=== PATIENT | female | born 1965 | race Caucasian/White ===

== ENCOUNTER → 2016-04-07 | Outpatient (CLI) | payer OTHER ==
[2016-04-07 15:56] LABS: BASOPHILS # (AUTO) 0.03 10*3/UL; BASOPHILS % (AUTO) 0.7 % (0-1); EOSINOPHILS % (AUTO) 1.7 % (0-8); HEMATOCRIT 37.6 % (37.0-47.0); HEMOGLOBIN 11.6 g/dL (12.0-16.0); IMM GRAN % (AUTO) 0.2 % (0-5); IMM GRAN# (AUTO) 0.01 10*3/UL; LYMPHOCYTES # (AUTO) 0.66 10*3/uL; LYMPHOCYTES % (AUTO) 15.8 % (10-50); MEAN CORPUSCULAR HEMOGLOBIN 26.9 PG (27-31); MEAN CORPUSCULAR HGB CONC 30.9 g/dL (33-37); MEAN PLATELET VOLUME 10.8 FL (7.4-12.2); MONOCYTES # (AUTO) 0.45 10*3/UL (0.3-0.8); MONOCYTES % (AUTO) 10.8 % (5-15); NEUTROPHILS # (AUTO) 2.95 10*3/UL; NEUTROPHILS % (AUTO) 70.8 % (50-80); RDW COEFFICIENT OF VARIATION 22.7 % (11.5-14.5); RED BLOOD COUNT 4.31 10^6/uL (4.20-5.40); WHITE BLOOD COUNT 4.17 10^3/uL (4.8-10.8)
[2016-04-07 15:57] LABS: BILIRUBIN,URINE NEGATIVE (NEG); CLARITY,URINE Slightly Clo (CLEAR); GLUCOSE, URINE (UA) NEGATIVE (NEG); LEUKOCYTE ESTERASE ,URINE MODERATE (NEG); NITRATE,URINE NEGATIVE (NEG); OCCULT BLOOD,URINE NEGATIVE (NEG); PLATELET MORPHOLOGY COMMENT NORMAL MORPHOLOGY (NORM); PROTEIN,URINE 30 mg/dl (NEG); UROBILINOGEN,URINE 0.2 mg/dL (0.2)
[2016-04-07 16:01] LABS: URINE SAMPLE TYPE VOIDED SPECIMEN
[2016-04-07 16:02] LABS: BACTERIA,URINE MODERATE; SQUAMOUS EPITHELIAL CELL,UR MANY
[2016-04-07 16:04] LABS: POTASSIUM 4.3 meq/L (3.8-5.2)
== END ==
LOC: MOB LAB 12:16
PROVIDERS: ATTEND Internal Medicine
DX: I42.2 Other hypertrophic cardiomyopathy (principal); R35.8 Other polyuria; D50.8 Other iron deficiency anemias; N39.0 Urinary tract infection, site not specified
CPT/HCPCS: 36415; 80048; 81001; 82728; 83540; 83550; 85025; 87088

== ENCOUNTER 2016-05-04 20:36 | Emergency (ER) | payer OTHER ==
[2016-05-04 20:45] VITALS: RESP 18; TEMP 97.3
[2016-05-04] MEDS ORDERED: MORPHINE SULFATE 2 MG/1 ML IVP ONE (20:48)
[2016-05-04] MEDS ORDERED: NORMAL SALINE 10 ML SYRINGE FLUSH IVP PRN (20:48)
[2016-05-04] MEDS ORDERED: Prochlorperazine Edisylate Inj 10mg/2ml vial IVP ONE (20:48)
[2016-05-04] MEDS ORDERED: diphenhydrAMINE 50 MG/1 ML VIAL IVP ONE (20:48)
[2016-05-04 21:13] LABS: BASOPHILS # (AUTO) 0.04 10*3/UL; BASOPHILS % (AUTO) 0.6 % (0-1); EOSINOPHILS % (AUTO) 1.1 % (0-8); HEMATOCRIT 35.3 % (37.0-47.0); HEMOGLOBIN 11.8 g/dL (12.0-16.0); IMM GRAN % (AUTO) 0.2 % (0-5); IMM GRAN# (AUTO) 0.01 10*3/UL; LYMPHOCYTES # (AUTO) 1.14 10*3/uL; LYMPHOCYTES % (AUTO) 17.2 % (10-50); MEAN CORPUSCULAR HEMOGLOBIN 29.1 PG (27-31); MEAN CORPUSCULAR HGB CONC 33.4 g/dL (33-37); MEAN PLATELET VOLUME 9.9 FL (7.4-12.2); MONOCYTES # (AUTO) 0.77 10*3/UL (0.3-0.8); MONOCYTES % (AUTO) 11.6 % (5-15); NEUTROPHILS # (AUTO) 4.58 10*3/UL; NEUTROPHILS % (AUTO) 69.3 % (50-80); RDW COEFFICIENT OF VARIATION 20.6 % (11.5-14.5); RED BLOOD COUNT 4.06 10^6/uL (4.20-5.40); WHITE BLOOD COUNT 6.61 10^3/uL (4.8-10.8)
[2016-05-04 21:14] LABS: PLATELET MORPHOLOGY COMMENT NORMAL MORPHOLOGY (NORM)
[2016-05-04 21:22] LABS: BLOOD UREA NITROGEN 16 mg/dL (7-22); BUN/CREATININE RATIO 22.85 (6-20); CHLORIDE 107 meq/L (98-112); CREATININE 0.7 mg/dL (0.50-1.20); EST GLOMERULAR FILTRATION > 60 (>60 ml/min/1.73m(2)); GLUCOSE 96 mg/dL (78-110); POTASSIUM 3.4 meq/L (3.8-5.2); SODIUM 142 meq/L (135-145)
[2016-05-04] MEDS ORDERED: MORPHINE SULFATE 4 MG/1 ML IVP ONE (21:41)
--- NOTE | 2016-05-04 22:06 | PDOC ---
Headache HPI - General Chief Complaint: Headache Stated Complaint: MIGRAINE SINCE 190 Date Seen by Provider: 05/04/16 Time Seen by Provider: 20:40 Source: POSITIVE: Patient Exam Limitations: POSITIVE: No limitations Nurse's Notes Reviewed & Considered: Yes - History of Present Illness Initial Comments: The patient is a 50-year-old female who presents to the emergency department with a headache. She has a known history of migraine headaches. She states that at approximately 7 PM this evening she had onset of left-sided headache. She has associated nausea as well as light and sound sensitivity. She states that her current headache is similar to migraine headaches that she has had in the past. She did try taking ibuprofen at home without any significant improvement. She denies any recent illness or trauma. - Patient Home Medications Home Medications: Home Medications Aspirin 1 tab PO DAILY tab 10/14/15 Losartan Potassium 1 tab PO DAILY #30 tab 02/17/16 Atorvastatin Calcium 1 tab-cap PO QHS #90 tab 02/18/16 Fluoxetine HCl 1 tab-cap PO DAILY #90 cap 02/18/16 Furosemide 1 tab PO DAILY #90 tab 02/18/16 Olanzapine/Fluoxetine HCl [Symbyax 6-25 Mg Capsule] 1 tab-cap PO QHS #90 cap 09/26 Omeprazole 1 tab-cap PO BID #180 tab-cap 02/18/16 Potassium Chloride 1 tab PO QD #90 tab 02/18/16 Promethazine HCl 1 tab-cap PO Q6H #120 tab-cap 02/18/16 Ferrous Sulfate 325 mg PO DAILY 03/11/16 Ibuprofen 1 tab PO Q8H tab 04/07/16 Vitamin E Mixed [Vitamin E] 400 unit PO BID tab 04/07/16 Warfarin Sodium 1 tab PO DAILY tab 04/07/16 Topiramate [Topamax] 1 tab-cap PO BID #120 tab 04/21/16 Acetaminophen [Tylenol] 325 mg PO PRN 05/04/16 Albuterol Sulfate [Proair Hfa] 2 puff INH Q4H 05/04/16 Polyethylene Glycol 3350 [Miralax] 17 gm PO PRN 05/04/16 - Patient Allergies Allergies/Adverse Reactions: Allergies Allergy/AdvReac Type Severity Reaction Status Date / Time codeine [Codeine] Allergy Severe HIVES Verified 05/04/16 20:40 ketorolac tromethamine Allergy Severe HIVES Verified 05/04/16 20:40 [From Toradol] levofloxacin [From Levaquin] Allergy Severe HIVES Verified 05/04/16 20:40 ondansetron HCl Allergy Severe hives Verified 05/04/16 20:40 [From Zofran (as hydrochloride)] Penicillins Allergy Severe HIVES Verified 05/04/16 20:40 Sulfa (Sulfonamide Allergy Severe HIVES Verified 05/04/16 20:40 Antibiotics) gabapentin [From Neurontin] Allergy HIVES Verified 05/04/16 20:40 Past Medical History - heen HEENT History: Denies History Cardiovascular History: Hypertension, CHF, Previous AR, CAD, Pacemaker, Internal Defibrillator, Valvular Heart Disease, Other (please comment) Additional Cardiovasular History: HYPERTROPHIC OBSTRUCTIVE CARDIOMYOPATHY, ARTIFICIAL MITRAL VALVE, AICD Respiratory History: Shortness of Breath, Other (please comment) Additional Respiratory History: CHRONIC TOBACCO ABUSE Gastrointestinal History: GERD Genitourinary History: Denies History Endocrine History: Denies History Musculoskeletal History: Denies History Prosthesis or Implant: No Neurological History: Migraines Blood Disorders: Denies History Psychiatric History: Depression, Anxiety Disorders History of Sexually Transmitted Diseases: No Female Reproductive History: Denies History Obstetrical History: Denies History Cancer History: Denies History In Past Year Been Physically Harmed or Verbally Threatened: No History of MDRO: No History of Other Communicable Diseases: No Tobacco Use: Current Every Day Smoker Alcohol Use: Occasionally Substance Use Type: None Previous Surgical History: No Type / Date of Surgery: PACER/DEFIB PLACEMENT. MITRAL VALVE REPAIR/ replace x2. HYSTER. BRITTNI. APPY. COLLAR BONE. CARDIAC STENTS Anesthesia Reactions: No Significant Family History: COPD, Diabetes, Lung disease, Seizures Past Medical History Reviewed: Reviewed - No Changes ROS - Limitations ROS Limitations: No Limitations Constitution: DENIES: Chills, Fever Cardiovascular: REPORTS: Denies Cardiac Symptoms Respiratory: REPORTS: Denies Resp Symptoms Neurological: REPORTS: Headache. DENIES: Numbness, Weakness Gastrointestinal: REPORTS: Denies GI Symptoms Musculoskeletal: REPORTS: Denies MS Symptoms Eyes: REPORTS: Vision Changes (Light sensitivity and some blurred vision which is common for her when she has a headache) ENT: REPORTS: Denies Symptoms Skin: DENIES: Rash Headache Exam - General Appearance General Appearance: POSITIVE: Alert, Cooperative, No Acute Distress - HEENT Head / Face: POSITIVE: No Facial Swelling Eyes: POSITIVE: PERRL, EOM's Intact Ears: POSITIVE: Ears Normal Inspection Nose: POSITIVE: Inspection Normal Oropharynx: POSITIVE: Airway Intact, Voice Normal, Moist Mucous Membranes - Neck Neck: POSITIVE: Normal Inspection - Respiratory / CVS Respiratory / CVS: POSITIVE: No Respiratory Distress, Other (She does have a click from an artificial valve) - Extremities Extremity: Normal ROM: (All Extremities), Normal Inspection: (All Extremities) - Neuro / Psych Higher Functions: POSITIVE: Oriented x3, Normal Speech Cranial Nerves: POSITIVE: Normal As Tested Sensorimotor: POSITIVE: No Motor Deficits, No Sensory Deficits Headache Progress - Results Reviewed by me Lab Results Reviewed: Yes Lab Results:: Laboratory Results 05/04/16 Range/Units 21:10 WBC 6.61 (4.8-10.8) 10^3/uL RBC 4.06 L (4.20-5.40) 10^6/uL Hgb 11.8 L (12.0-16.0) g/dL Hct 35.3 L (37.0-47.0) % MCV 86.9 (81-99) FL MCH 29.1 (27-31) PG MCHC 33.4 (33-37) g/dL RDW Std Deviation 63.0 H (39-50) fL RDW Coeff of Hussain 20.6 H (11.5-14.5) % Plt Count 235 (140-350) 10*3/uL MPV 9.9 (7.4-12.2) FL Immature Gran % (Auto) 0.2 (0-5) % Neut % (Auto) 69.3 (50-80) % Lymph % (Auto) 17.2 (10-50) % [place] % (Auto) 11.6 (5-15) % Eos % (Auto) 1.1 (0-8) % Baso % (Auto) 0.6 (0-1) % Immature Gran # (Auto) 0.01 10*3/UL Neut # (Auto) 4.58 10*3/UL Lymph # (Auto) 1.14 10*3/uL [place] # (Auto) 0.77 (0.3-0.8) 10*3/UL Eos # (Auto) 0.07 10*3/UL Baso # (Auto) 0.04 10*3/UL WBC Morphology Comment Normal morphology (NORM) Plt Morphology Comment Normal morphology (NORM) RBC Morph Comment Normal morphology (NORM) PT 18.0 H (9.7-11.4) secs INR 1.73 (0.00-5.90) N/A Sodium 142 (135-145) meq/L Potassium 3.4 L (3.8-5.2) meq/L Chloride 107 (98-112) meq/L Carbon Dioxide 19 L (23-33) meq/L Anion Gap 16 (5-20) BUN 16 (7-22) mg/dL Creatinine 0.7 (0.50-1.20) mg/dL Estimated GFR > 60 (>60 ml/min/1.73m(2)) BUN/Creatinine Ratio 22.85 H (6-20) Glucose 96 (78-110) mg/dL Calculated Osmolality 294.0 H (267-292) mOsm/kg Calcium 9.0 (8.7-10.7) mg/dL - Patient's Progress MDM / ED Course: Shortly after arrival an IV was established. The patient did receive Compazine 5 mg and Benadryl 25 mg IV as well as morphine 2 mg IV. She did not receive a fluid bolus because of her history of congestive heart failure. Her pain started to improve however recurred. When she arrived in the emergency department her pain level is an 8 out of 10. It was creeping back up to about 6 out of 10 and she received a second dose of morphine 4 mg IV. After that she was feeling significantly better and felt like she could go home and rest. Lab work was unremarkable. Her INR was slightly low at 1.8. She was advised to have this checked within the next week. She was advised to rest and continue her current medications. She will return to the emergency room if any worsening or change in symptoms. - Consult Counseled: POSITIVE: Patient, RE: Lab Results, RE: DX, RE: Need for F/U Patient Care Time - Estimated PCT Patient Care Time (In Minutes): 20 Vital Signs - Recent Vital Signs Vital Signs: Vital Signs (Last 8 hours) Temp Pulse Resp BP Pulse Ox 05/04/16 20:36 97.3 F 97 18 125/85 96 - VS Reviewed Vital Signs Reviewed: Yes Discharge Clinical Impression: Headache Condition: Stable Patient Instructions Given at Discharge: Acute Headache (ED) Additional Instructions: Rest and continue current medications at home. Your INR was slightly low at 1.8. I would not recommend changing the dosage however this should be rechecked within the next week. Return to the emergency room if worsening headache, any worsening or change in symptoms. Follow-up with primary care in 1 week. Follow Up With: ENOCH ALCOCER [Primary Care Provider] -
== END 2016-05-04 22:00 | disposition home or self-care (01) ==
LOC: ER 20:36
DX: R51 Headache (principal); R11.0 Nausea
CPT/HCPCS: 36415; 80048; 85025; 85610; 96374; 96375; 96376; 99282; 99283; J1200; J0780; J2270

== ENCOUNTER 2016-05-12 12:57 | Inpatient (IN) | payer OTHER ==
[2016-05-12] MEDS ORDERED: NORMAL SALINE 10 ML SYRINGE FLUSH IVP PRN (13:01)
[2016-05-12] MEDS ORDERED: Magnesium Sulfate 2gm (Premix) 2 GM in Premix 1 BAG IV ONE (13:01)
[2016-05-12] MEDS ORDERED: predniSONE Tab 20 MG TAB PO ONE (13:01)
[2016-05-12] MEDS ORDERED: Sodium Chloride 0.9% 1,000 ML PRIMARY IV ONE (13:01)
[2016-05-12] MEDS ORDERED: methylPREDNISolone 125 MG/2 ML VIAL IVP ONE (13:01)
--- NOTE | 2016-05-12 13:01 | PDOC ---
Dyspnea HPI - General Chief Complaint: Dyspnea Stated Complaint: dyspnea Date Seen by Provider: 05/12/16 Time Seen by Provider: 13:01 Source: POSITIVE: Patient Exam Limitations: POSITIVE: No limitations - History of Present Illness Initial Comments: Ms Nath is a 50 year old woman coming in today with shortness of breath and wheezing, ongoing for the past 2-3 days. She denies fever, she has a mild cough productive of whitish sputum. she has no substernal chest pain, but her lungs do feel tight when she tries to take a deep breath. she has nasal congestion and runny nose. She has post-tussive emesis. She has no lower extremity swelling , no nausea.. She went to the clinic today, and there had a chest Xray done, got 2 albuterol treatments and 1 ipratropium treatment. She has may sick contacts at work with similar symptoms. She uses CPAP at night but is not on oxygen while at home. - Patient Home Medications Home Medications: Home Medications Aspirin 1 tab PO DAILY tab 10/14/15 Losartan Potassium 1 tab PO DAILY #30 tab 02/17/16 Atorvastatin Calcium 1 tab-cap PO QHS #90 tab 02/18/16 Fluoxetine HCl 1 tab-cap PO DAILY #90 cap 02/18/16 Furosemide 1 tab PO DAILY #90 tab 02/18/16 Olanzapine/Fluoxetine HCl [Symbyax 6-25 Mg Capsule] 1 tab-cap PO QHS #90 cap 09/26 Omeprazole 1 tab-cap PO BID #180 tab-cap 02/18/16 Potassium Chloride 1 tab PO QD #90 tab 02/18/16 Promethazine HCl 1 tab-cap PO Q6H #120 tab-cap 02/18/16 Ferrous Sulfate 325 mg PO DAILY 03/11/16 Ibuprofen 1 tab PO Q8H tab 04/07/16 Vitamin E Mixed [Vitamin E] 400 unit PO BID tab 04/07/16 Warfarin Sodium 1 tab PO DAILY tab 04/07/16 Topiramate [Topamax] 1 tab-cap PO BID #120 tab 04/21/16 Acetaminophen [Tylenol] 325 mg PO PRN 05/04/16 Albuterol Sulfate [Proair Hfa] 2 puff INH Q4H 05/04/16 Polyethylene Glycol 3350 [Miralax] 17 gm PO PRN 05/04/16 - Patient Allergies Allergies/Adverse Reactions: Allergies Allergy/AdvReac Type Severity Reaction Status Date / Time codeine [Codeine] Allergy Severe HIVES Verified 05/12/16 13:03 ketorolac tromethamine Allergy Severe HIVES Verified 05/12/16 13:03 [From Toradol] levofloxacin [From Levaquin] Allergy Severe Anaphylaxis Verified 05/12/16 15:49 ondansetron HCl Allergy Severe hives Verified 05/12/16 13:03 [From Zofran (as hydrochloride)] Penicillins Allergy Severe HIVES Verified 05/12/16 13:03 Sulfa (Sulfonamide Allergy Severe HIVES Verified 05/12/16 13:03 Antibiotics) gabapentin [From Neurontin] Allergy HIVES Verified 05/12/16 13:03 Past Medical History - heen HEENT History: Denies History Cardiovascular History: Hypertension, CHF, Previous NC, CAD, Pacemaker, Internal Defibrillator, Valvular Heart Disease, Other (please comment) Additional Cardiovasular History: HYPERTROPHIC OBSTRUCTIVE CARDIOMYOPATHY, ARTIFICIAL MITRAL VALVE, AICD Respiratory History: Shortness of Breath, Other (please comment) Additional Respiratory History: CHRONIC TOBACCO ABUSE Gastrointestinal History: GERD Genitourinary History: Denies History Endocrine History: Denies History Musculoskeletal History: Denies History Prosthesis or Implant: No Neurological History: Migraines Blood Disorders: Denies History Psychiatric History: Depression, Anxiety Disorders History of Sexually Transmitted Diseases: No Cancer History: Denies History History of MDRO: No History of Other Communicable Diseases: No Alcohol Use: Occasionally Substance Use Type: None Previous Surgical History: No Type / Date of Surgery: PACER/DEFIB PLACEMENT. MITRAL VALVE REPAIR/ replace x2. HYSTER. BRITTNI. APPY. COLLAR BONE. CARDIAC STENTS Anesthesia Reactions: No Significant Family History: COPD, Diabetes, Lung disease, Seizures Past Medical History Reviewed: Reviewed - No Changes ROS - Limitations ROS Limitations: No Limitations Constitution: REPORTS: Chills Cardiovascular: REPORTS: Denies Cardiac Symptoms Respiratory: REPORTS: Cough Productive, Hurts To Breathe, Shortness Of Breath, Wheezing Neurological: REPORTS: Denies Neuro Symptoms Gastrointestinal: REPORTS: Denies GI Symptoms Endocrine: REPORTS: Fatigue Musculoskeletal: REPORTS: Muscle Aches Genitourinary: REPORTS: Denies Symptoms Eyes: REPORTS: Denies Symptoms ENT: REPORTS: Congestion Skin: REPORTS: Denies Skin Symptoms Lympathic: REPORTS: Denies Lympathic Symptoms Immunologic: POSITIVE: Denies Symptoms Psychiatric: POSITIVE: Anxiety Dyspnea Physical Exam - General Appearance General Appearance: REPORTS: Alert, Cooperative, Anxious - HEENT HEENT: POSITIVE: Head Inspection Nml, Eyes Inspection Nml, Ears Inspection Nml, PERRL, EOMI - Neck Neck: REPORTS: Normal Inspection, No Carotid Bruit - Respiratory Respiratory: REPORTS: Other (course breath sounds with end-expiratory wheeze in right upper lobe, speaks in full sentences) - Cardiovascular Cardiovascular: REPORTS: Regular Rate and Rhythm, Heart Sounds Normal, Equal Pulses, Strong Pulses Peripheral Pulses: Radial (R): 2+, Radial (L): 2+ - Abdomen Abdomen: Soft: (All Quadrants), Denies Tenderness: (All Quadrants), No Distention: (All Quadrants) - Extremities Extremity: Non-Tender: (All Extremities), Normal ROM: (All Extremities), Normal Inspection: (All Extremities) - Neurological / Psychological Neurological: POSITIVE: Affect Apporpriate, Oriented X3, Motor Normal, Sensation Normal Dyspnea Progress - Results Reviewed by me Xrays/CTs/US Reviewed by me: Yes Discussed with Radiologist: Yes Radiology Findings: bronchiectasis. no infiltrate or edema Lab Results:: Laboratory Results 05/12/16 05/12/16 05/12/16 Range/Units 13:02 14:36 14:45 WBC 7.15 (4.8-10.8) 10^3/uL RBC 3.88 L (4.20-5.40) 10^6/uL Hgb 10.7 L (12.0-16.0) g/dL Hct 34.1 L (37.0-47.0) % MCV 87.9 (81-99) FL MCH 27.6 (27-31) PG MCHC 31.4 L (33-37) g/dL RDW Std Deviation 61.2 H (39-50) fL RDW Coeff of Hussain 19.5 H (11.5-14.5) % Plt Count 209 (140-350) 10*3/uL MPV 10.2 (7.4-12.2) FL Neutrophils % (Manual) 94 H (50-80) % Band Neutrophils % 0 (0-10) % Lymphocytes % (Manual) 5 L (10-50) % Monocytes % (Manual) 1 (0-12) % Eosinophils % (Manual) 0 (0-8) % Basophils % (Manual) Not Reportable Metamyelocytes % Not Reportable Myelocytes % Not Reportable Promyelocytes % Not Reportable Blast Cells Not Reportable WBC Morphology Comment Normal morphology (NORM) Plt Morphology Comment Normal morphology (NORM) RBC Morph Comment Normal morphology (NORM) PT (9.7-11.4) secs INR (0.00-5.90) N/A VBG pH 7.43 H (7.32-7.42) VBG pCO2 28 L (45-55) mmHg VBG HCO3 19 L (22-26) mmol/L VBG Base Excess -6 L (-2-2) MMOL/L Sodium 137 (135-145) meq/L Potassium 3.3 L (3.8-5.2) meq/L Chloride 104 (98-112) meq/L Carbon Dioxide 19 L (23-33) meq/L Anion Gap 14 (5-20) BUN 11 (7-22) mg/dL Creatinine 0.7 (0.50-1.20) mg/dL Estimated GFR > 60 (>60 ml/min/1.73m(2)) BUN/Creatinine Ratio 15.71 (6-20) Glucose 103 (78-110) mg/dL Calculated Osmolality 282.0 (267-292) mOsm/kg Calcium 8.8 (8.7-10.7) mg/dL Magnesium 1.7 (1.6-2.4) mg/dL Total Bilirubin 0.6 (0.3-1.2) mg/dL AST 23 (8-39) IU/L ALT 34 (9-52) IU/L Alkaline Phosphatase 124 (38-126) IU/L Troponin I 0.054 H (< 0.040) ng/mL Total Protein 7.6 (6.1-8.0) g/dL Albumin 4.4 (3.5-4.8) g/dL Globulin 3.2 (2.50-4.10) g/dL Albumin/Globulin Ratio 1.30 (1.3-2.0) mg/g 05/12/16 Range/Units 15:50 WBC (4.8-10.8) 10^3/uL RBC (4.20-5.40) 10^6/uL Hgb (12.0-16.0) g/dL Hct (37.0-47.0) % MCV (81-99) FL MCH (27-31) PG MCHC (33-37) g/dL RDW Std Deviation (39-50) fL RDW Coeff of Hussain (11.5-14.5) % Plt Count (140-350) 10*3/uL MPV (7.4-12.2) FL Neutrophils % (Manual) (50-80) % Band Neutrophils % (0-10) % Lymphocytes % (Manual) (10-50) % Monocytes % (Manual) (0-12) % Eosinophils % (Manual) (0-8) % Basophils % (Manual) Metamyelocytes % Myelocytes % Promyelocytes % Blast Cells WBC Morphology Comment (NORM) Plt Morphology Comment (NORM) RBC Morph Comment (NORM) PT 22.4 H (9.7-11.4) secs INR 2.14 (0.00-5.90) N/A VBG pH (7.32-7.42) VBG pCO2 (45-55) mmHg VBG HCO3 (22-26) mmol/L VBG Base Excess (-2-2) MMOL/L Sodium (135-145) meq/L Potassium (3.8-5.2) meq/L Chloride (98-112) meq/L Carbon Dioxide (23-33) meq/L Anion Gap (5-20) BUN (7-22) mg/dL Creatinine (0.50-1.20) mg/dL Estimated GFR (>60 ml/min/1.73m(2)) BUN/Creatinine Ratio (6-20) Glucose (78-110) mg/dL Calculated Osmolality (267-292) mOsm/kg Calcium (8.7-10.7) mg/dL Magnesium (1.6-2.4) mg/dL Total Bilirubin (0.3-1.2) mg/dL AST (8-39) IU/L ALT (9-52) IU/L Alkaline Phosphatase (38-126) IU/L Troponin I (< 0.040) ng/mL Total Protein (6.1-8.0) g/dL Albumin (3.5-4.8) g/dL Globulin (2.50-4.10) g/dL Albumin/Globulin Ratio (1.3-2.0) mg/g EKG Interpreted/Reviewed By Me:: Yes EKG Interpretation:: POSITIVE: Other (paced rhythm, unchanged) - Patient's Progress MDM / ED Course: Ms Gaffney is a 50 year old woman coming in today with shortness of breath and hypoxia. She has a somewhat complicated medical history. We initially reated her as a [id number] equivalent, with steroids, magnesium, and albuterol. This did not help. We gave a nitro tab, which did not help her chest tightness. We gave morphine which helped her discomfort, as well as ativan , which helped her ease of breathing. She continued to have a supplemental oxygen requirement, needing 3-5L to keep her sats above 90. The Xray showed nothing acute. I initially wanted a contrast chest CT to look for PE, but her vascular access was very limited and we weren't able to get a large enough IV in to administer the contrast. Her INR is above 2, which would be therapeutic for a PE anyways. I informed the patient of our findings, as well as our recommendation for admission for her hypoxia. She agreed. - Consult Consult (If Yes, Name of Consulting MD & Time Called): Yes (Dr Day, hospitalist for admission) Consulting MD will see pt:: [place] [facility] [place] Counseled: POSITIVE: Patient Patient Care Time - Estimated PCT Patient Care Time (In Minutes): 45 Vital Signs - Recent Vital Signs Vital Signs: Vital Signs (Last 8 hours) Temp Pulse Resp BP Pulse Ox 05/12/16 12:56 98.5 F 82 24 118/65 96 that 96% is on 3L, on room air she is 85% - VS Reviewed Vital Signs Reviewed: Yes Discharge Clinical Impression: Hypoxia, Cough Discharge Disposition: Admit to Observation Condition: Fair Care Transferred To: Dr Miguel A Day Date Decision to Admit to Inpatient: 05/12/16 Time Decision to Admit to Inpatient: 16:50
[2016-05-12] MEDS ORDERED: LIDOCAINE W/ SODIUM BICARB 0.5 ML SYR ONE (14:11)
--- NOTE | 2016-05-12 14:27 | EKG ---
[address] [address] Measurements Intervals [place] Rate: 77 P: 83 MN: 138 QRS: -74 QRSD: 162 T: 88 QT: 476 QTc: 508 Interpretive Statements ELECTRONIC VENTRICULAR PACEMAKER ABNORMAL RHYTHM ECG Compared to ECG 03/11/2016 11:44:39 Atrial-paced complex(es) or rhythm no longer present Electronically Signed On 05-13-16 08:23:30 MST by Drake Valdes MD [email or web address]
[2016-05-12 14:51] LABS: HEMATOCRIT 34.1 % (37.0-47.0); HEMOGLOBIN 10.7 g/dL (12.0-16.0); MEAN CORPUSCULAR HEMOGLOBIN 27.6 PG (27-31); MEAN CORPUSCULAR HGB CONC 31.4 g/dL (33-37); MEAN PLATELET VOLUME 10.2 FL (7.4-12.2); RDW COEFFICIENT OF VARIATION 19.5 % (11.5-14.5); RED BLOOD COUNT 3.88 10^6/uL (4.20-5.40); WHITE BLOOD COUNT 7.15 10^3/uL (4.8-10.8)
[2016-05-12] MEDS ORDERED: MORPHINE SULFATE 4 MG/1 ML IVP ONE ×2 (14:58→16:53)
[2016-05-12 15:00] LABS: ASPARTATE AMINO TRANSFERASE 23 IU/L (8-39); BILIRUBIN,TOTAL 0.6 mg/dL (0.3-1.2); BLOOD UREA NITROGEN 11 mg/dL (7-22); BUN/CREATININE RATIO 15.71 (6-20); CALCIUM 8.8 mg/dL (8.7-10.7); CHLORIDE 104 meq/L (98-112); CREATININE 0.7 mg/dL (0.50-1.20); EST GLOMERULAR FILTRATION > 60 (>60 ml/min/1.73m(2)); GLUCOSE 103 mg/dL (78-110); POTASSIUM 3.3 meq/L (3.8-5.2); SODIUM 137 meq/L (135-145); TOTAL PROTEIN 7.6 g/dL (6.1-8.0)
[2016-05-12] MEDS ORDERED: MORPHINE SULFATE 4 MG/1 ML ONE (15:01)
[2016-05-12 15:04] LABS: BAND NEUTROPHILS % 0 % (0-10); EOSINOPHILS % (MANUAL) 0 % (0-8); LYMPHOCYTES % (MANUAL) 5 % (10-50); MONOCYTES % (MANUAL) 1 % (0-12); NEUTROPHILS % (MANUAL) 94 % (50-80); PLATELET MORPHOLOGY COMMENT NORMAL MORPHOLOGY (NORM)
[2016-05-12] MEDS ORDERED: NITROGLYCERIN 0.4 MG SL TAB (BOTTLE OF 3) SL ONE ×2 (15:27→15:28)
[2016-05-12] MEDS ORDERED: LORazepam 2 MG/1 ML VIAL IVP ONE ×2 (15:53→20:29)
[2016-05-12 16:02] LABS: PROTHROMBIN TIME 22.4 secs (9.7-11.4)
--- NOTE | 2016-05-12 16:36 | DI ---
CT CHEST SCAN WITHOUT IV CONTRAST, 05/12/2016 3:17 PM : Clinical History: Hypoxia. Previous Exam: None at this facility. Scans are performed from the base of the neck to the lower lung bases without IV contrast. Sagittal a nd coronal images using non MIPS and MIPS technique are generated. The base of the neck and thoracic inlet are normal. There are no abnormal axillary, supraclavicular, mediastinal, or hilar nodes. The patient is status post mitral valve replacement and the left atrium is markedly enlarged and is larger than the size of the left ventricle. There is marked pulmonary art erial hypertension. There is no acute infiltrate or effusion but there is bronchiectasis in the left lower lobe. In addition, a fine reticulonodular pattern is present as well as increase in the amount of Sabiha A and Sabiha B lines all indicating interstitial disease probably interstitial fibrosis. Th is pattern was present on the previous exam and has not changed. There is also more interstitial love ge manifested by more prominent Sabiha A lines and Sabiha B lines in the left lower lobe territory. Both adrenal glands, the spleen, and the visualized portions of the liver and pancreas are normal. READIN. There is no acute infiltrate or effusion but there is left lower lobe bronchiectasis. 2. There is a diffuse fine reticulonodular pattern with associated increased amounts of Sabiha A and Sabiha B lines consistent with chronic interstitial pulmonary fibrosis. This may account for the mar ked pulmonary arterial hypertension. 3. Status post mitral valve replacement with marked left atrial enlargement.
[2016-05-12] MEDS ORDERED: ENOXAPARIN SODIUM 80 MG/0.8 ML SYRINGE SUBCUT ONE (16:49)
[2016-05-12] MEDS ORDERED: IBUPROFEN 800 MG TABLET PO SCH (18:26)
[2016-05-12] MEDS ORDERED: LIDOCAINE W/ SODIUM BICARB 0.5 ML SYR SUBD PRN (18:26)
[2016-05-12] MEDS ORDERED: ACETAMINOPHEN 325 MG TABLET PO PRN (18:26)
[2016-05-12] MEDS ORDERED: Promethazine Tab 25 MG TAB PO PRN (18:26)
[2016-05-12] MEDS ORDERED: POLYETHYLENE GLYCOL 3350 17 GM POWDER PO PRN (18:26)
--- NOTE | 2016-05-12 18:40 | PDOC ---
History and Physical - History of Present Illness History of Present Illness: Very nice 50-year-old female with past medical history significant for coronary artery disease, previous PA with stents, defibrillator with pacer she has a very complicated medical history also has a St. Norm mitral valve on Coumadin her INR today was 2.1 she went to the urgent care clinic because over the last 2 days she's been short of breath with cough. She was seen in the ER CT scan without contrast because unable to get enough for the IV site for contrast showed chronic interstitial pulmonary fibrosis but no pneumonia and overall not feeling very good. Also has a mild troponin leak which is chronic in her case gone back other admissions Past Medical History Medical History: Mitral valve replacement 2, coronary artery disease ablation in [place] of the [facility] with stent Surgical History: Stents, mitral valve replacement PACER/DEFIB PLACEMENT. MITRAL VALVE REPAIR/ replace x2. HYSTER. BRITTNI. APPY. COLLAR BONE. CARDIAC STENTS Tobacco Use: Current Every Day Smoker Do you dip or chew tobacco: No Substance Use Type: None Medication / Allergies Home Medications: Home Medications Medication Instructions Recorded Confirmed Type Aspirin 1 tab PO DAILY tab 10/14/15 05/12/16 History Losartan Potassium 1 tab PO DAILY #30 tab 02/17/16 05/12/16 Clinic Atorvastatin Calcium 1 tab-cap PO QHS #90 tab 02/18/16 05/12/16 Clinic Fluoxetine HCl 1 tab-cap PO DAILY #90 cap 02/18/16 05/12/16 Clinic Furosemide 1 tab PO DAILY #90 tab 02/18/16 05/12/16 Clinic Olanzapine/Fluoxetine HCl [Symbyax 1 tab-cap PO QHS #90 cap 02/18/16 05/12/16 Clinic 6-25 Mg Capsule] Omeprazole 1 tab-cap PO BID #180 tab-cap 02/18/16 05/12/16 Clinic Potassium Chloride 1 tab PO QD #90 tab 02/18/16 05/12/16 Clinic Promethazine HCl 1 tab-cap PO Q6H #120 tab-cap 02/18/16 05/12/16 Clinic Ferrous Sulfate 325 mg PO DAILY 03/11/16 05/12/16 History Ibuprofen 1 tab PO Q8H tab 04/07/16 05/12/16 History Vitamin E Mixed [Vitamin E] 400 unit PO BID tab 04/07/16 05/12/16 History Warfarin Sodium 1 tab PO DAILY tab 04/07/16 05/12/16 History Topiramate [Topamax] 1 tab-cap PO BID #120 tab 04/21/16 05/12/16 Clinic Acetaminophen [Tylenol] 325 mg PO PRN 05/04/16 05/12/16 History Albuterol Sulfate [Proair Hfa] 2 puff INH Q4H 05/04/16 05/12/16 History Polyethylene Glycol 3350 [Miralax] 17 gm PO PRN 05/04/16 05/12/16 History Allergies/Adverse Reactions: Allergies Allergy/AdvReac Type Severity Reaction Status Date / Time codeine [Codeine] Allergy Severe HIVES Verified 05/12/16 13:03 ketorolac tromethamine Allergy Severe HIVES Verified 05/12/16 13:03 [From Toradol] levofloxacin [From Levaquin] Allergy Severe Anaphylaxis Verified 05/12/16 15:49 ondansetron HCl Allergy Severe hives Verified 05/12/16 13:03 [From Zofran (as hydrochloride)] Penicillins Allergy Severe HIVES Verified 05/12/16 13:03 Sulfa (Sulfonamide Allergy Severe HIVES Verified 05/12/16 13:03 Antibiotics) gabapentin [From Neurontin] Allergy HIVES Verified 05/12/16 13:03 Review of Systems - Review of Systems All Systems: Reviewed & No Additional Complaints Except as Stated - Respiratory Respiratory: REPORTS: Cough, Dyspnea At Rest, Wheezing - Cardiovascular Cardiovascular: DENIES: Chest Pain, Syncope, Palpitations - Gastrointestinal Gastrointestinal / Abdominal: DENIES: Negative System Review, Nausea, Vomiting, Diarrhea, Constipation, Abdominal Pain, Bloody Stool, Poor Appetite, Heartburn, Regurgitation, Bloating, Lactose Intolerance, Melena, Bright Red Blood Per Rectum, Other, See HPI - Genitourinary Genitourinary: DENIES: Negative System Review, Pain, Burning, Hematuria, Incontinence, Urgency, Hesitant Stream, Decreased Stream, Nocutria, Discharge, Sexual Dyfunction, Other, See HPI - Neurological Neurologic: DENIES: Negative System Review, Headache, Numbness/Paresthesia, Tremors, Weakness, Seizures, Head Trauma, LOC, Dizziness, Confusion, Memory Loss , Difficulty Walking, Incoordination, Other, See HPI Exam - Vitals Vital Signs: Vital Signs Temperature 98.5 F Temperature Source Temporal Artery Scan Pulse Rate [Pulse Oximeter 76 Right] Respiratory Rate 20 Blood Pressure [Left Arm] 111/79 Pulse Ox 92 Oxygen Delivery Method Nasal Cannula Height 5 ft 5 in Weight 79.379 kg - General General Appearance: POSITIVE: No Acute Distress, Cooperative - Head Head Exam: POSITIVE: Normal Inspection, Normocephalic, Atraumatic - Eye Eye Exam: POSITIVE: PERRL, EOMI - Neck Neck Exam: POSITIVE: Normal Inspection, Full ROM (Bilateral rhonchi bilateral expiratory wheezes and Rales) - Cardiovascular Cardiovascular Exam: POSITIVE: RRR Additional Cardiovascular Details: Chemical heart valve - GI/Abdominal GI/Abdominal Exam: POSITIVE: Non Tender, Non Distended, Soft - Extremities Extremities Exam: POSITIVE: No Clubbing Present, No Edema Present, No Cyanosis Present - Neurological Neurological Exam: POSITIVE: Alert, Oriented x 3, CN II-XII Intact, No Facial Droop - Psychiatric Psychiatric Exam: POSITIVE: Normal Affect, Normal Mood Results - Labs CBC and BMP: 05/12/16 13:02 05/12/16 14:45 Assessment and Plan - Assessment / Plan Additional Assessment/Plan Details: This very nice 50-year-old female with a complicated medical history consistent with coronary artery disease, previous PA, defibrillator with pacer and mechanical heart valve comes in with a 2-3 day history of shortness of breath and cough CT scan with no contrast showed the chronic to pulmonary fibrosis interstitial pattern no contrast was administered because of acceptable IV site to inject contrast she is on Coumadin for her mechanical heart valve that INR 2.1 which is subtherapeutic should be between 2.5 and 2.5 I believe the clinical picture fits with a COPD exacerbation she is a smoker with the rhonchi or rales and expiratory wheezes I will put the patient on Zithromax and Rocephin she is allergic to Levaquin I will also give her steroids and inhalers. I will give her 1 dose of Lovenox to make sure she is covered I believe the Zithromax will bump up her Coumadin levels so I will hold off on the raising of the amount of Coumadin that she receives I discussed this with the patient she agrees and understands I will also rule her out with the severe troponins
[2016-05-12] MEDS ORDERED: ALBUTEROL SULFATE 8.5 GM HFA INHALER INH PRN (19:00)
[2016-05-12] MEDS ORDERED: cefTRIAXone Inj 2 GM in Sodium Chloride 0.9% 100 ML IV SCH (19:00)
[2016-05-12] MEDS: IPRATROPIUM/ALBUTEROL SULFATE 3 ML NEB NEB SCH (19:04)
[2016-05-12] MEDS: methylPREDNISolone 125 MG/2 ML VIAL IVP SCH (19:13)
[2016-05-12] MEDS: NORMAL SALINE 10 ML SYRINGE FLUSH IVP PRN (19:14)
[2016-05-12] MEDS ORDERED: ALPRAZolam Tab 1 MG TABLET PO PRN (19:59)
[2016-05-12] MEDS ORDERED: LORazepam 2 MG/1 ML VIAL IVP PRN (20:43)
[2016-05-12] MEDS: POTASSIUM CHLORIDE 20 MEQ TAB PO SCH (20:49)
[2016-05-12] MEDS: Topiramate Tab 50 MG TAB PO SCH (20:51)
[2016-05-12] MEDS: MORPHINE SULFATE 2 MG/1 ML IVP PRN (20:54)
[2016-05-12] MEDS ORDERED: TOPIRAMATE PO SCH (21:00)
[2016-05-12] MEDS ORDERED: FLUOXETINE HCL PO SCH (21:00)
[2016-05-12] MEDS ORDERED: Warfarin 5 MG TAB PO SCH ×2 (21:00)
[2016-05-12] MEDS ORDERED: OLANZAPINE PO SCH (21:00)
[2016-05-12] MEDS ORDERED: ATORVASTATIN 40 MG TABLET PO SCH (21:00)
[2016-05-13] MEDS: methylPREDNISolone 125 MG/2 ML VIAL IVP SCH ×2 (00:22→05:31)
[2016-05-13 00:23] LABS: BASOPHILS # (AUTO) 0.01 10*3/UL; BASOPHILS % (AUTO) 0.2 % (0-1); EOSINOPHILS % (AUTO) 0 % (0-8); HEMATOCRIT 34.7 % (37.0-47.0); HEMOGLOBIN 10.6 g/dL (12.0-16.0); IMM GRAN % (AUTO) 0.2 % (0-5); IMM GRAN# (AUTO) 0.01 10*3/UL; LYMPHOCYTES % (AUTO) 3.9 % (10-50); MEAN CORPUSCULAR HEMOGLOBIN 27.2 PG (27-31); MEAN CORPUSCULAR HGB CONC 30.5 g/dL (33-37); MEAN PLATELET VOLUME 9.8 FL (7.4-12.2); MONOCYTES # (AUTO) 0.06 10*3/UL (0.3-0.8); MONOCYTES % (AUTO) 1.2 % (5-15); NEUTROPHILS # (AUTO) 4.88 10*3/UL; NEUTROPHILS % (AUTO) 94.5 % (50-80); RDW COEFFICIENT OF VARIATION 19.7 % (11.5-14.5); RED BLOOD COUNT 3.89 10^6/uL (4.20-5.40); WHITE BLOOD COUNT 5.16 10^3/uL (4.8-10.8)
[2016-05-13] MEDS: NORMAL SALINE 10 ML SYRINGE FLUSH IVP PRN ×3 (00:23→05:31)
[2016-05-13 00:26] LABS: PLATELET MORPHOLOGY COMMENT NORMAL MORPHOLOGY (NORM)
[2016-05-13] MEDS: MORPHINE SULFATE 2 MG/1 ML IVP PRN ×3 (00:30→07:29)
[2016-05-13 00:31] LABS: BLOOD UREA NITROGEN 16 mg/dL (7-22); CALCIUM 8.9 mg/dL (8.7-10.7); CHLORIDE 104 meq/L (98-112); CREATININE 0.8 mg/dL (0.50-1.20); EST GLOMERULAR FILTRATION > 60 (>60 ml/min/1.73m(2)); GLUCOSE 153 mg/dL (78-110); POTASSIUM 4.6 meq/L (3.8-5.2); SODIUM 138 meq/L (135-145)
[2016-05-13] MEDS: IPRATROPIUM/ALBUTEROL SULFATE 3 ML NEB NEB SCH ×2 (06:07→10:26)
[2016-05-13] MEDS ORDERED: OMEPRAZOLE 20 MG CAPSULE PO SCH (07:00)
[2016-05-13 07:26] VITALS: RESP 25; TEMP 97.2
[2016-05-13] MEDS ORDERED: ENOXAPARIN SODIUM 80 MG/0.8 ML SYRINGE SUBCUT ONE (07:45)
[2016-05-13 08:29] LABS: PROTHROMBIN TIME 19.9 secs (9.7-11.4)
--- NOTE | 2016-05-13 08:30 | DI ---
VENTILATION AND PERFUSION LUNG SCAN, 05/13/2016 6:00 AM: Clinical History: Hypoxia. Shortness of breath. Previous Exam: None at this facility. Comparison is made with the chest x-ray and the noncontrast CT chest scans performed on 05/12/2016. Technique: The patient was ventilated with Tc-99 DTPA aerosol, and 8 views were performed. The patien t was then injected with 6 mCi of Tc-99 MAA IV, and the same 8 views were performed. I approved the d tununak for the perfusion scans. Ventilation and perfusion lung scans of the right lung are normal indicating a low probability for pu lmonary embolism. There is a matching circular artifact over the left anterior and upper chest wall c orresponding to the patient's pacemaker. "Hot" spots are present in the region of the left mainstem b ronchus indicating chronic airway disease. There is almost complete absence of ventilation to the lef t lower lobe. The perfusion to the region is significantly better although irregular. This "reverse" ventilation/perfusion mismatch where there is better perfusion than ventilation is associated with un derlying chronic lung disease rather than pulmonary embolism. Review of the CT scan of the chest with out IV contrast performed on 05/12/2016 shows that this patient has bronchiectasis to the left lower lo be which would explain the lung scan findings. Perfusion to the left upper lobe and lingular segment are normal indicating low probability for pulmonary embolism in this lobe. Readin. There is normal ventilation and perfusion of the right lung and normal perfusion to the left uppe r lobe and lingular segment, and these areas are of low probability for pulmonary embolism. 2. There is almost complete absence of ventilation to the left lower lobe and there is actually bett er perfusion although the perfusion is irregular and shows subsegmental defects. This "reverse" venti lation/perfusion mismatch would correspond to the CT findings of left lower lobe bronchiectasis. Alth ough technically the left lower lobe must be considered "indeterminate" for PE, these lung scan findi ngs and the findings on the CT study are more indicative of underlying chronic lung disease rather th an pulmonary embolism.
[2016-05-13] MEDS ORDERED: FERROUS SULFATE 325 MG TABLET PO SCH (09:00)
[2016-05-13] MEDS ORDERED: LOSARTAN 25 MG TABLET PO SCH (09:00)
[2016-05-13] MEDS ORDERED: ASPIRIN 81 MG (BABY) CHEWABLE TABLET PO SCH (09:00)
[2016-05-13] MEDS ORDERED: FLUoxetine 20 MG CAPSULE PO SCH (09:00)
[2016-05-13] MEDS ORDERED: FUROSEMIDE 40 MG TABLET PO SCH (09:00)
[2016-05-13] MEDS: POTASSIUM CHLORIDE 20 MEQ TAB PO SCH (09:17)
[2016-05-13] MEDS: Topiramate Tab 50 MG TAB PO SCH (09:17)
[2016-05-13] MEDS ORDERED: ACETAMINOPHEN 325 MG TABLET PO PRN (09:54)
--- NOTE | 2016-05-13 10:46 | DCSUMMARY ---
Hospitalization Summary Hospital Course: Final Discharge Diagnosis: Current Visit Problems Problem Status Priority Diagnosed Code Cough Acute R05 Hypoxia Acute R09.02 Positive troponins CHF with elevated BNP of 9000 COPD exacerbation Pulmonary hypertension Subtherapeutic INR Diagnostic Data, Laboratory Data, and Procedures of Signifigance: Laboratory Results 05/12/16 05/12/16 05/12/16 Range/Units 13:02 14:36 14:45 WBC 7.15 (4.8-10.8) 10^3/uL RBC 3.88 L (4.20-5.40) 10^6/uL Hgb 10.7 L (12.0-16.0) g/dL Hct 34.1 L (37.0-47.0) % MCV 87.9 (81-99) FL MCH 27.6 (27-31) PG MCHC 31.4 L (33-37) g/dL RDW Std Deviation 61.2 H (39-50) fL RDW Coeff of Hussain 19.5 H (11.5-14.5) % Plt Count 209 (140-350) 10*3/uL MPV 10.2 (7.4-12.2) FL Immature Gran % (Auto) (0-5) % Neut % (Auto) (50-80) % Lymph % (Auto) (10-50) % [place] % (Auto) (5-15) % Eos % (Auto) (0-8) % Baso % (Auto) (0-1) % Immature Gran # (Auto) 10*3/UL Neut # (Auto) 10*3/UL Lymph # (Auto) 10*3/uL [place] # (Auto) (0.3-0.8) 10*3/UL Eos # (Auto) 10*3/UL Baso # (Auto) 10*3/UL Neutrophils % (Manual) 94 H (50-80) % Band Neutrophils % 0 (0-10) % Lymphocytes % (Manual) 5 L (10-50) % Monocytes % (Manual) 1 (0-12) % Eosinophils % (Manual) 0 (0-8) % Basophils % (Manual) Not Reportable Metamyelocytes % Not Reportable Myelocytes % Not Reportable Promyelocytes % Not Reportable Blast Cells Not Reportable WBC Morphology Comment Normal morphology (NORM) Plt Morphology Comment Normal morphology (NORM) RBC Morph Comment Normal morphology (NORM) PT (9.7-11.4) secs INR (0.00-5.90) N/A VBG pH 7.43 H (7.32-7.42) VBG pCO2 28 L (45-55) mmHg VBG HCO3 19 L (22-26) mmol/L VBG Base Excess -6 L (-2-2) MMOL/L Sodium 137 (135-145) meq/L Potassium 3.3 L (3.8-5.2) meq/L Chloride 104 (98-112) meq/L Carbon Dioxide 19 L (23-33) meq/L Anion Gap 14 (5-20) BUN 11 (7-22) mg/dL Creatinine 0.7 (0.50-1.20) mg/dL Estimated GFR > 60 (>60 ml/min/1.73m(2)) BUN/Creatinine Ratio 15.71 (6-20) Glucose 103 (78-110) mg/dL Calculated Osmolality 282.0 (267-292) mOsm/kg Calcium 8.8 (8.7-10.7) mg/dL Magnesium 1.7 (1.6-2.4) mg/dL Total Bilirubin 0.6 (0.3-1.2) mg/dL AST 23 (8-39) IU/L ALT 34 (9-52) IU/L Alkaline Phosphatase 124 (38-126) IU/L Troponin I 0.054 H (< 0.040) ng/mL NT-Pro-B Natriuret Pep (0-125) PG/ML Total Protein 7.6 (6.1-8.0) g/dL Albumin 4.4 (3.5-4.8) g/dL Globulin 3.2 (2.50-4.10) g/dL Albumin/Globulin Ratio 1.30 (1.3-2.0) mg/g 05/12/16 05/12/16 05/13/16 Range/Units 15:50 18:51 00:16 WBC 5.16 (4.8-10.8) 10^3/uL RBC 3.89 L (4.20-5.40) 10^6/uL Hgb 10.6 L (12.0-16.0) g/dL Hct 34.7 L (37.0-47.0) % MCV 89.2 (81-99) FL MCH 27.2 (27-31) PG MCHC 30.5 L (33-37) g/dL RDW Std Deviation 62.3 H (39-50) fL RDW Coeff of Hussain 19.7 H (11.5-14.5) % Plt Count 207 (140-350) 10*3/uL MPV 9.8 (7.4-12.2) FL Immature Gran % (Auto) 0.2 (0-5) % Neut % (Auto) 94.5 H (50-80) % Lymph % (Auto) 3.9 L (10-50) % [place] % (Auto) 1.2 L (5-15) % Eos % (Auto) 0 (0-8) % Baso % (Auto) 0.2 (0-1) % Immature Gran # (Auto) 0.01 10*3/UL Neut # (Auto) 4.88 10*3/UL Lymph # (Auto) 0.20 10*3/uL [place] # (Auto) 0.06 L (0.3-0.8) 10*3/UL Eos # (Auto) 0 10*3/UL Baso # (Auto) 0.01 10*3/UL Neutrophils % (Manual) (50-80) % Band Neutrophils % (0-10) % Lymphocytes % (Manual) (10-50) % Monocytes % (Manual) (0-12) % Eosinophils % (Manual) (0-8) % Basophils % (Manual) Metamyelocytes % Myelocytes % Promyelocytes % Blast Cells WBC Morphology Comment Normal morphology (NORM) Plt Morphology Comment Normal morphology (NORM) RBC Morph Comment Normal morphology (NORM) PT 22.4 H (9.7-11.4) secs INR 2.14 (0.00-5.90) N/A VBG pH (7.32-7.42) VBG pCO2 (45-55) mmHg VBG HCO3 (22-26) mmol/L VBG Base Excess (-2-2) MMOL/L Sodium 138 (135-145) meq/L Potassium 4.6 D (3.8-5.2) meq/L Chloride 104 (98-112) meq/L Carbon Dioxide 20 L (23-33) meq/L Anion Gap 14 (5-20) BUN 16 (7-22) mg/dL Creatinine 0.8 (0.50-1.20) mg/dL Estimated GFR > 60 (>60 ml/min/1.73m(2)) BUN/Creatinine Ratio 20.00 (6-20) Glucose 153 H (78-110) mg/dL Calculated Osmolality 289.0 (267-292) mOsm/kg Calcium 8.9 (8.7-10.7) mg/dL Magnesium (1.6-2.4) mg/dL Total Bilirubin (0.3-1.2) mg/dL AST (8-39) IU/L ALT (9-52) IU/L Alkaline Phosphatase (38-126) IU/L Troponin I 0.060 H 0.059 H (< 0.040) ng/mL NT-Pro-B Natriuret Pep 9820 H (0-125) PG/ML Total Protein (6.1-8.0) g/dL Albumin (3.5-4.8) g/dL Globulin (2.50-4.10) g/dL Albumin/Globulin Ratio (1.3-2.0) mg/g /04/30 Range/Units 08:16 WBC (4.8-10.8) 10^3/uL RBC (4.20-5.40) 10^6/uL Hgb (12.0-16.0) g/dL Hct (37.0-47.0) % MCV (81-99) FL MCH (27-31) PG MCHC (33-37) g/dL RDW Std Deviation (39-50) fL RDW Coeff of Hussain (11.5-14.5) % Plt Count (140-350) 10*3/uL MPV (7.4-12.2) FL Immature Gran % (Auto) (0-5) % Neut % (Auto) (50-80) % Lymph % (Auto) (10-50) % [place] % (Auto) (5-15) % Eos % (Auto) (0-8) % Baso % (Auto) (0-1) % Immature Gran # (Auto) 10*3/UL Neut # (Auto) 10*3/UL Lymph # (Auto) 10*3/uL [place] # (Auto) (0.3-0.8) 10*3/UL Eos # (Auto) 10*3/UL Baso # (Auto) 10*3/UL Neutrophils % (Manual) (50-80) % Band Neutrophils % (0-10) % Lymphocytes % (Manual) (10-50) % Monocytes % (Manual) (0-12) % Eosinophils % (Manual) (0-8) % Basophils % (Manual) Metamyelocytes % Myelocytes % Promyelocytes % Blast Cells WBC Morphology Comment (NORM) Plt Morphology Comment (NORM) RBC Morph Comment (NORM) PT 19.9 H (9.7-11.4) secs INR 1.91 (0.00-5.90) N/A VBG pH (7.32-7.42) VBG pCO2 (45-55) mmHg VBG HCO3 (22-26) mmol/L VBG Base Excess (-2-2) MMOL/L Sodium (135-145) meq/L Potassium (3.8-5.2) meq/L Chloride (98-112) meq/L Carbon Dioxide (23-33) meq/L Anion Gap (5-20) BUN (7-22) mg/dL Creatinine (0.50-1.20) mg/dL Estimated GFR (>60 ml/min/1.73m(2)) BUN/Creatinine Ratio (6-20) Glucose (78-110) mg/dL Calculated Osmolality (267-292) mOsm/kg Calcium (8.7-10.7) mg/dL Magnesium (1.6-2.4) mg/dL Total Bilirubin (0.3-1.2) mg/dL AST (8-39) IU/L ALT (9-52) IU/L Alkaline Phosphatase (38-126) IU/L Troponin I (< 0.040) ng/mL NT-Pro-B Natriuret Pep (0-125) PG/ML Total Protein (6.1-8.0) g/dL Albumin (3.5-4.8) g/dL Globulin (2.50-4.10) g/dL Albumin/Globulin Ratio (1.3-2.0) mg/g Past Medical History Medical History: Mitral valve replacement 2, coronary artery disease ablation in [place] [facility] [place] with stent Surgical History: Stents, mitral valve replacement PACER/DEFIB PLACEMENT. MITRAL VALVE REPAIR/ replace x2. HYSTER. BRITTNI. APPY. COLLAR BONE. CARDIAC STENTS Tobacco Use: Current Every Day Smoker Do you dip or chew tobacco: No Substance Use Type: None Course of Hospitalization: Is a very nice 50-year-old female with past medical history significant for coronary artery disease, previous [place] with stents, defibrillator with pacer. Also has a St. Norm mitral valve on Coumadin her INR on admission was 2.1 she was seen in urgent care for shortness of breath and hypoxia A she has not been feeling well for over the last couple days initial chest x-ray there did not show any evidence of pneumonia and patient was referred to the emergency room where she was seen by Dr. beaulieu she had a CT there without contrast which shows interstitial pulmonary fibrosis but no pneumonia after multiple tense from multiple caregivers no IV site was extended list the big enough for her to get contrast. She was subsequently admitted and treated with antibiotics, steroids, Lovenox since her INR was subtherapeutic having a mechanical heart valve and high suspicious of PE with the borderline positive troponins which it could represent a leak from right heart strain VQ scan was performed and in one lung and was indeterminate and we'll long they did not see any blood clot but was read as consistent with the bronchiectasis. Because of her elevated the BnP and the elevated troponins and because of her extensive cardiac history with the defibrillator pacer insertion and mitral valve repair 2 and considering the fact that her senior computer specialist are in [place], and no availability here for 1 week to do any echoes since the tech is out and also because of her severe lung disease with pulmonary fibrosis stress test would be better managed by cardiology I've called Dr. Gonzales at [facility] [place]. I discussed this with the patient which agreed with the transfer as well as the nursing. Electrolyte imbalance with low potassium replaced and improved On the date of discharge, the patient was examined: Gen.: [No acute distress, alert, nontoxic] Heart: [Regular rate and rhythm, no murmurs, clicks, gallops, or rubs] Lungs: Few expiratory wheezes some rhonchi very tight Abdomen/GI: [Normal tones on auscultation, soft, nontender, nondistended] Musculoskeletal/extremities: [No clubbing, cyanosis, or edema] Vitals reviewed and are listed below Vital Signs (24 hrs) Temp Pulse Pulse Pulse Pulse Resp BP 05/13/16 07:25 97.2 F 74 25 H 113/53 05/13/16 07:00 70 70 36 H 05/13/16 04:25 05/13/16 04:05 97.6 F 71 24 148/78 05/13/16 03:46 05/13/16 03:00 65 05/13/16 00:30 97.4 F 66 22 109/67 05/12/16 23:00 70 05/12/16 20:45 98.1 F 72 24 98/59 05/12/16 20:08 98.5 F 05/12/16 19:42 98.5 F 05/12/16 19:12 98.5 F 05/12/16 19:00 71 24 05/12/16 17:27 98.5 F 76 24 111/79 05/12/16 16:59 76 20 111/79 05/12/16 16:15 86 20 124/94 05/12/16 15:05 84 20 119/76 05/12/16 14:30 88 20 118/74 05/12/16 13:45 98.5 F 80 20 121/64 05/12/16 12:56 98.5 F 82 24 118/65 Pulse Ox 05/13/16 07:25 93 05/13/16 07:00 05/13/16 04:25 94 05/13/16 04:05 96 05/13/16 03:46 95 05/13/16 03:00 05/13/16 00:30 95 05/12/16 23:00 05/12/16 20:45 92 05/12/16 20:08 05/12/16 19:42 05/12/16 19:12 05/12/16 19:00 05/12/16 17:27 92 05/12/16 16:59 92 05/12/16 16:15 92 05/12/16 15:05 92 05/12/16 14:30 92 05/12/16 13:45 94 05/12/16 12:56 96 Assessment and Plan: 1. As per discharge assessments above 2. Disposition: Transferred to [facility] [place] further [place] and treatment 3. Condition on discharge, stable and improved. 4. Diet: regular diet 5. Activities: resume normal activities 6. Follow-Up: 1. [PCP] 2. 7. Medications at the Time of Discharge: Home Medications Medication Instructions Recorded Confirmed Type Aspirin 1 tab PO DAILY tab 10/14/15 05/12/16 History Losartan Potassium 1 tab PO DAILY #30 tab 02/17/16 05/12/16 Clinic Atorvastatin Calcium 1 tab-cap PO QHS #90 tab 02/18/16 05/12/16 Clinic Fluoxetine HCl 1 tab-cap PO DAILY #90 cap 02/18/16 05/12/16 Clinic Furosemide 1 tab PO DAILY #90 tab 02/18/16 05/12/16 Clinic Olanzapine/Fluoxetine HCl [Symbyax 1 tab-cap PO QHS #90 cap 02/18/16 05/12/16 Clinic 6-25 Mg Capsule] Omeprazole 1 tab-cap PO BID #180 tab-cap 02/18/16 05/12/16 Clinic Potassium Chloride 1 tab PO QD #90 tab 02/18/16 05/12/16 Clinic Promethazine HCl 1 tab-cap PO Q6H #120 tab-cap 02/18/16 05/12/16 Clinic Ferrous Sulfate 325 mg PO DAILY 03/11/16 05/12/16 History Ibuprofen 1 tab PO Q8H tab 04/07/16 05/12/16 History Vitamin E Mixed [Vitamin E] 400 unit PO BID tab 04/07/16 05/12/16 History Warfarin Sodium 1 tab PO DAILY tab 04/07/16 05/12/16 History Topiramate [Topamax] 1 tab-cap PO BID #120 tab 04/21/16 05/12/16 Clinic Acetaminophen [Tylenol] 325 mg PO PRN 05/04/16 05/12/16 History Albuterol Sulfate [Proair Hfa] 2 puff INH Q4H 05/04/16 05/12/16 History Polyethylene Glycol 3350 [Miralax] 17 gm PO PRN 05/04/16 05/12/16 History Active Medications Generic Name Dose Route Start Last Admin Trade Name Freq PRN Reason Stop Dose Admin Acetaminophen 650 mg 05/13/16 09:54 Tylenol PO Q6H PRN Pain Albuterol Sulfate 2 puff 05/12/16 19:00 05/13/16 03:45 Proair Hfa Inhaler INH 2 puff RTQ4H PRN Administration Shortness of breath Albuterol/Ipratropium 3 ml 05/12/16 19:00 05/13/16 10:26 Duoneb Neb Soln NEB 3 ml RTQID ISABELL Administration Alprazolam 1 mg 05/12/16 19:59 05/12/16 20:33 Xanax Tab PO 1 mg Q8H PRN Administration Anxiety Aspirin 81 mg 05/13/16 09:00 05/13/16 09:17 Aspirin Chewable Tab PO 81 mg DAILY ISABELL Administration Atorvastatin Calcium 40 mg 05/12/16 21:00 05/12/16 20:50 Lipitor PO 40 mg 2100 ISABELL Administration Azithromycin 250 mg 05/13/16 16:56 Zithromax PO 05/17/16 16:55 Q24H ISABELL Enoxaparin Sodium 80 mg 05/13/16 20:00 Lovenox Inj SUBCUT Q12H ISABELL Ferrous Sulfate 325 mg 05/13/16 09:00 05/13/16 09:17 Feosol PO 325 mg DAILY ISABELL Administration Furosemide 40 mg 05/13/16 09:00 05/13/16 09:17 Lasix PO 40 mg DAILY ISABELL Administration Sodium Chloride 25 mls @ 200 mls/hr 05/12/16 18:26 Normal Saline 0.9% IV .Post Infusion PRN No Primary IV for Flush ONLY Ceftriaxone Sodium 2 gm/ 100 mls @ 200 mls/hr 05/12/16 19:00 05/12/16 20:34 Sodium Chloride IV 200 mls/hr Q24H ISABELL Administration Lidocaine HCl 0.5 ml 05/12/16 18:26 Lidocaine Buffered Inj SUBD ONCE PRN IV Starts Losartan Potassium 25 mg 05/13/16 09:00 05/13/16 09:17 Cozaar PO 25 mg DAILY ISABELL Administration Methylprednisolone Sodium Succinate 60 mg 05/12/16 18:26 05/13/16 05:31 Solu-Medrol Inj IVP 05/15/16 18:25 60 mg Q6H ISABELL Administration Pom (Olanzapine/ 1 tab-cap 05/12/16 21:00 05/12/16 20:50 Fluoxetine Hcl [ PO 1 tab-cap Symbyax 6-25 Mg BEDTIME ISABELL Administration Capsule] ) Omeprazole 20 mg 05/13/16 07:00 05/13/16 09:17 Prilosec PO 20 mg AC BK DIN ISABELL Administration Polyethylene Glycol 17 gm 05/12/16 18:26 Miralax Packet PO DAILY PRN constipation Potassium Chloride 40 meq 05/12/16 21:00 05/13/16 09:17 Klor-Con PO 40 meq BID ISABELL Administration Promethazine HCl 25 mg 05/12/16 18:26 Phenergan PO Q6H PRN Nausea Sodium Chloride 5 - 20 ml 05/12/16 18:26 05/13/16 05:31 Saline Flush IVP 10 ml BID PRN Administration Flush Topiramate 100 mg 05/12/16 21:00 05/13/16 09:17 Topamax PO 100 mg BID ISABELL Administration Warfarin Sodium 5 mg 05/12/16 21:00 05/12/16 20:52 Coumadin PO 5 mg [id number]@2100 ISABELL Administration Warfarin Sodium 7.5 mg 05/14/16 21:00 Coumadin PO TuFr@2100 ISABELL 8. Time, care, counseling and coordination of care for this discharge is greater than 30 minutes. Exam - Vitals Vital Signs: Vital Signs Temperature 97.2 F Temperature Source Temporal Artery Scan Pulse Rate [Apical] 70 Pulse Rate [Pulse Oximeter] 74 Pulse Rate [Pulse Oximeter 76 Right] Pulse Rate 70 Respiratory Rate 25 Blood Pressure [Left Arm] 113/53 Pulse Ox 93 Oxygen Flow Rate 6 Oxygen Delivery Method Nasal Cannula Height 5 ft 5 in Weight 79.379 kg
[2016-05-13] MEDS ORDERED: AZITHROMYCIN 250 MG TABLET PO SCH (16:56)
[2016-05-13] MEDS ORDERED: ENOXAPARIN SODIUM 80 MG/0.8 ML SYRINGE SUBCUT SCH (20:00)
[2016-05-14] MEDS ORDERED: ENOXAPARIN SODIUM 80 MG/0.8 ML SYRINGE SUBCUT SCH (09:00)
[2016-05-14] MEDS ORDERED: Warfarin 5 MG TAB PO SCH ×2 (21:00)
== END 2016-05-13 11:37 | disposition short-term general hospital (02) | DRG 192 ==
LOC: ER 12:57 → MED/SURG 16:51
PROVIDERS: ADMIT Internal Medicine; ATTEND Internal Medicine
DX: J44.1 Chronic obstructive pulmonary disease with (acute) exacerbation (principal); Z72.0 Tobacco use; R06.2 Wheezing; I50.9 Heart failure, unspecified; I27.2 Other secondary pulmonary hypertension; R09.02 Hypoxemia; R05 Cough; Z95.2 Presence of prosthetic heart valve; Z95.0 Presence of cardiac pacemaker; I25.10 Atherosclerotic heart disease of native coronary artery without angina pectoris
CPT/HCPCS: 36415 ×2; 71250; 80053; 82803; 83735; 84484; 85007; 85610; 87040; 93005; 93010; 96361; 96365; 96375; 99285 ×2; J2930; 71020; 78582; 80048; 83880; 85025; 87804; 94640; 94761; J0696; J1650; J2060; J2270; J3475; J7030; J7050; J7620

== ENCOUNTER → 2016-05-12 | Outpatient (CLI) | payer OTHER ==
--- NOTE | 2016-05-12 14:56 | DI ---
PA /LATERAL CHEST X-RAY, 05/12/2016 11:54 AM : Clinical History: Dyspnea. Previous Exam: 02/17/2016; 02/20/2016; and 03/11/2016. There is no acute soft tissue or bony abnormality. The patient is status post mitral valve replacemen t and CABG. There is a combined dual-chamber pacemaker and internal defibrillator and the leads are i n the appropriate position. There is cardiomegaly. For this degree of inspiration, CHF is felt not to be present. No acute infiltrate or effusion is present. Pulmonary arterial hypertension is noted. Th ere are no pulmonary nodules. Readin. There is no acute infiltrate or effusion. 2. Cardiomegaly. CHF is felt not to be present. Status post CABG and mitral valve replacement. 3. Pulmonary arterial hypertension.
== END ==
LOC: MOB RAD 11:50
PROVIDERS: ATTEND Physician Assistant Medical
DX: R06.00 Dyspnea, unspecified (principal); R07.9 Chest pain, unspecified; I51.7 Cardiomegaly; I27.2 Other secondary pulmonary hypertension
CPT/HCPCS: 71020

== ENCOUNTER → 2016-05-31 | Outpatient (CLI) | payer OTHER | LOC: MMPC 11:11 | PROVIDERS: ATTEND Internal Medicine | DX: Z87.09 Personal history of other diseases of the respiratory system (principal) ==

== ENCOUNTER 2016-06-25 17:02 | Emergency (ER) | payer OTHER ==
--- NOTE | 2016-06-25 17:14 | PDOC ---
Headache HPI - General Chief Complaint: Headache Stated Complaint: MIGRAINE Date Seen by Provider: 06/25/16 Time Seen by Provider: 17:10 Source: POSITIVE: Patient Exam Limitations: POSITIVE: No limitations - History of Present Illness Initial Comments: Miss Kathleen Carrasco is a 50-year-old one coming to us today with a headache. The headache started several hours ago it was gradual in onset and is possibly getting worse. The headache is located on the left side of her head. She denies trauma. It is associated with nausea and emesis times one. She reports spots in her vision as well as severe photophobia and phonophobia. She has no fevers, she has no stiff neck, and she otherwise feels at her baseline level of health. She has a pretty extensive history of cardiac problems, but denies any shortness of breath or chest pain. She took 800 mg of ibuprofen total twice earlier today to help with the pain but it did not really help. She only gets migraines about once a month, and this migraine feels typical of her normal migraines. - Patient Home Medications Home Medications: Home Medications Aspirin 1 tab PO DAILY tab 10/14/15 Atorvastatin Calcium 1 tab-cap PO QHS #90 tab 02/18/16 Fluoxetine HCl 1 tab-cap PO DAILY #90 cap 02/18/16 Furosemide 1 tab PO DAILY #90 tab 02/18/16 Olanzapine/Fluoxetine HCl [Symbyax 6-25 Mg Capsule] 1 tab-cap PO QHS #90 cap 09/26 Omeprazole 1 tab-cap PO BID #180 tab-cap 02/18/16 Potassium Chloride 1 tab PO QD #90 tab 02/18/16 Promethazine HCl 1 tab-cap PO Q6H #120 tab-cap 02/18/16 Ferrous Sulfate 325 mg PO DAILY 03/11/16 Ibuprofen 1 tab PO Q8H tab 04/07/16 Vitamin E Mixed [Vitamin E] 400 unit PO BID tab 04/07/16 Topiramate [Topamax] 1 tab-cap PO BID #120 tab 04/21/16 Acetaminophen [Tylenol] 325 mg PO PRN 05/04/16 Albuterol Sulfate [Proair Hfa] 2 puff INH Q4H 05/04/16 Polyethylene Glycol 3350 [Miralax] 17 gm PO PRN 05/04/16 Losartan Potassium 1 tab-cap PO DAILY #90 tab-cap 05/14/16 Warfarin Sodium 1 tab-cap PO DAILY #30 tab-cap 06/23/16 Warfarin Sodium 1 tab-cap PO DAILY #60 tab-cap 06/23/16 - Patient Allergies Allergies/Adverse Reactions: Allergies Allergy/AdvReac Type Severity Reaction Status Date / Time codeine [Codeine] Allergy Severe HIVES Verified 06/25/16 17:05 ketorolac tromethamine Allergy Severe HIVES Verified 06/25/16 17:05 [From Toradol] levofloxacin [From Levaquin] Allergy Severe Anaphylaxis Verified 06/25/16 17:05 ondansetron HCl Allergy Severe hives Verified 06/25/16 17:05 [From Zofran (as hydrochloride)] Penicillins Allergy Severe HIVES Verified 06/25/16 17:05 Sulfa (Sulfonamide Allergy Severe HIVES Verified 06/25/16 17:05 Antibiotics) gabapentin [From Neurontin] Allergy HIVES Verified 06/25/16 17:05 Past Medical History - heen HEENT History: Denies History Cardiovascular History: Hypertension, CHF, Previous AR, CAD, Pacemaker, Internal Defibrillator, Valvular Heart Disease, Other (please comment) Additional Cardiovasular History: HYPERTROPHIC OBSTRUCTIVE CARDIOMYOPATHY, ARTIFICIAL MITRAL VALVE, AICD Respiratory History: Shortness of Breath, Other (please comment) Additional Respiratory History: CHRONIC TOBACCO ABUSE Gastrointestinal History: GERD Genitourinary History: Denies History Endocrine History: Denies History Musculoskeletal History: Denies History Prosthesis or Implant: No Neurological History: Migraines Blood Disorders: Denies History Psychiatric History: Depression, Anxiety Disorders History of Sexually Transmitted Diseases: No Cancer History: Denies History History of MDRO: No History of Other Communicable Diseases: No Alcohol Use: Occasionally Substance Use Type: None Previous Surgical History: No Type / Date of Surgery: PACER/DEFIB PLACEMENT. MITRAL VALVE REPAIR/ replace x2. HYSTER. BRITTNI. APPY. COLLAR BONE. CARDIAC STENTS Anesthesia Reactions: No Significant Family History: COPD, Diabetes, Lung disease, Seizures Past Medical History Reviewed: Reviewed - No Changes ROS - Limitations ROS Limitations: No Limitations Constitution: REPORTS: Denies Symptoms Cardiovascular: REPORTS: Denies Cardiac Symptoms Respiratory: REPORTS: Denies Resp Symptoms Neurological: REPORTS: Headache Gastrointestinal: REPORTS: Nausea, Vomitting Endocrine: REPORTS: Denies Symptoms Musculoskeletal: REPORTS: Denies MS Symptoms Genitourinary: REPORTS: Denies Symptoms Eyes: REPORTS: Vision Changes ENT: REPORTS: Denies Symptoms Skin: REPORTS: Denies Skin Symptoms Lympathic: REPORTS: Denies Lympathic Symptoms Immunologic: POSITIVE: Denies Symptoms Psychiatric: POSITIVE: Denies Psych Symptoms Headache Exam - General Appearance General Appearance: POSITIVE: Alert, Cooperative, No Acute Distress - HEENT Head / Face: POSITIVE: Atraumatic, Normal Inspection, No Facial Swelling Eyes: POSITIVE: Inspection Normal, PERRL, EOM's Intact Ears: POSITIVE: Ears Normal Inspection Nose: POSITIVE: Inspection Normal, No Apparent Trauma Oropharynx: POSITIVE: Moist Mucous Membranes, No Oral Injury, Lips Normal - Pupil Size Pupil Size: 2 mm: Bilateral - Neck Neck: POSITIVE: Normal Inspection, Supple, Other (Negative Kernig's, negative Budzinski's) - Respiratory / CVS Respiratory / CVS: POSITIVE: No Respiratory Distress, Heart Sounds Normal, Regular Rate/Rhythm, Breath Sounds Normal Peripheral Pulses: Radial (R): 2+, Radial (L): 2+ - Abdomen Abdomen: Soft: (All Quadrants), Denies Tenderness: (All Quadrants) - Extremities Extremity: Non-Tender: (All Extremities), Normal ROM: (All Extremities), Normal Inspection: (All Extremities) - Neuro / Psych Higher Functions: POSITIVE: Alert, Oriented x3, Normal Speech, Mood Appropriate Cranial Nerves: POSITIVE: Normal As Tested, No Evidence of Acute CVA Cerebellar: POSITIVE: Normal As Tested Sensorimotor: POSITIVE: No Motor Deficits, No Sensory Deficits Headache Progress - Patient's Progress MDM / ED Course: Ms. Carrasco is a 50-year-old woman coming in to us today with acute migraine headache consistent with her history of past migraine headaches. I will give her a liter of normal saline 25 mg of IV Benadryl and 10 mg of IV metoclopramide with atenolol grams of Decadron. Upon reassessment, patient stated her pain was absolutely unchanged. At that point we gave her 6 mg of subcutaneous sumatriptan and 500 mg of IV valproic acid. Ms. Carrasco refused these, and asked for "what they always give me when I come in". Looking through past notes it appears that she has occasionally required morphine for pain control. I gave her 1 dose of 4 mg morphine. She then asked for one dose of promethazine because her nausea came back. After all of this, she felt much improved with her head pain reduced and her nausea resolved. She felt stable enough to go home. We give her return precautions and she verbalized understanding. Patient Care Time - Estimated PCT Patient Care Time (In Minutes): 20 Vital Signs - Recent Vital Signs Vital Signs: Vital Signs (Last 8 hours) Temp Pulse Resp BP Pulse Ox 06/25/16 17:05 96.5 F L 71 20 114/56 98 - VS Reviewed Vital Signs Reviewed: Yes Discharge Clinical Impression: Migraine Discharge Disposition: Discharged to Home Condition: Fair
[2016-06-25 17:16] VITALS: RESP 20; TEMP 96.5
[2016-06-25] MEDS: diphenhydrAMINE 50 MG/1 ML VIAL IVP ONE (17:28)
[2016-06-25] MEDS: Sodium Chloride 0.9% 1,000 ML PRIMARY IV ONE (17:28)
[2016-06-25] MEDS: DEXAMETHASONE PF 10 MG/1 ML VIAL IM ONE (17:30)
[2016-06-25] MEDS: NORMAL SALINE 10 ML SYRINGE FLUSH IVP PRN (17:35)
[2016-06-25] MEDS: Metoclopramide Inj 10 MG/2 ML VIAL IVP ONE (17:35)
[2016-06-25] MEDS: VALPROATE IV ONE (17:59)
[2016-06-25] MEDS: SODIUM CHLORIDE 0.9% IV ONE (17:59)
[2016-06-25] MEDS: SUMAtriptan Succinate 6 MG/0.5 ML SUBCUT ONE (18:00)
[2016-06-25] MEDS: MORPHINE SULFATE 4 MG/1 ML IVP ONE (18:12)
[2016-06-25] MEDS: PROMETHAZINE 25 MG/1 ML VIAL IM ONE (18:26)
== END 2016-06-25 18:53 | disposition home or self-care (01) ==
LOC: ER 17:02
DX: G43.009 Migraine without aura, not intractable, without status migrainosus (principal); R11.2 Nausea with vomiting, unspecified
CPT/HCPCS: 96361; 96374; 96375; 99282; 99283; J1200; J2765; J1100; J2270; J2550; J3030; J3490; J7030; J7050

== ENCOUNTER 2016-07-21 09:35 | Inpatient (IN) | payer OTHER ==
[2016-07-21] MEDS ORDERED: IPRATROPIUM/ALBUTEROL SULFATE 3 ML NEB NEB ONE (10:05)
--- NOTE | 2016-07-21 10:12 | PDOC ---
Dyspnea HPI - General Chief Complaint: Dyspnea Stated Complaint: dyspnea Date Seen by Provider: 07/21/16 Time Seen by Provider: 10:07 Source: POSITIVE: Patient Exam Limitations: POSITIVE: No limitations Treatment Prior to Arrival: REPORTS: Oxygen Nurse's Notes Reviewed & Considered: Yes - History of Present Illness Initial Comments: Patient comes in today with a chief complaint of shortness of breath. Patient with an extensive cardiac history including congestive heart failure, mitral valve prolapse, automatic internal defibrillator, and tobacco abuse comes in because of increased work of breathing, increased swelling of her extremities, and shortness of breath. She denies any fever chills or sweats. She does have shortness of breath and is speaking in broken sentences. Her oxygen saturation is 95% on room air, however she feels as though she cannot get a good breath of air. She denies any nausea vomiting or diarrhea. No hematuria or dysuria. No rashes. - Patient Home Medications Home Medications: Home Medications Aspirin 1 tab PO DAILY tab 10/14/15 Atorvastatin Calcium 1 tab-cap PO QHS #90 tab 02/18/16 Fluoxetine HCl 1 tab-cap PO DAILY #90 cap 02/18/16 Furosemide 1 tab PO DAILY #90 tab 02/18/16 Olanzapine/Fluoxetine HCl [Symbyax 6-25 Mg Capsule] 1 tab-cap PO QHS #90 cap 09/26 Omeprazole 1 tab-cap PO BID #180 tab-cap 02/18/16 Promethazine HCl 1 tab-cap PO Q6H #120 tab-cap 02/18/16 Ibuprofen 1 tab PO Q8H tab 04/07/16 Vitamin E Mixed [Vitamin E] 400 unit PO BID tab 04/07/16 Acetaminophen [Tylenol] 325 mg PO PRN 05/04/16 Albuterol Sulfate [Proair Hfa] 2 puff INH Q4H 05/04/16 Polyethylene Glycol 3350 [Miralax] 17 gm PO PRN PRN 05/04/16 Losartan Potassium 1 tab-cap PO DAILY #90 tab-cap 05/14/16 Warfarin Sodium 1 tab-cap PO DAILY #30 tab-cap 06/23/16 Warfarin Sodium 1 tab-cap PO DAILY #60 tab-cap 06/23/16 Topiramate [Topamax] 1 tab-cap PO BID #120 tab 07/12/16 - Patient Allergies Allergies/Adverse Reactions: Allergies Allergy/AdvReac Type Severity Reaction Status Date / Time codeine [Codeine] Allergy Severe HIVES Verified 07/21/16 10:32 ketorolac tromethamine Allergy Severe HIVES Verified 07/21/16 10:32 [From Toradol] levofloxacin [From Levaquin] Allergy Severe Anaphylaxis Verified 07/21/16 10:32 ondansetron HCl Allergy Severe hives Verified 07/21/16 10:32 [From Zofran (as hydrochloride)] Penicillins Allergy Severe HIVES Verified 07/21/16 10:32 Sulfa (Sulfonamide Allergy Severe HIVES Verified 07/21/16 10:32 Antibiotics) gabapentin [From Neurontin] Allergy HIVES Verified 07/21/16 10:32 Past Medical History - heen HEENT History: Denies History Cardiovascular History: Hypertension, CHF, Previous [place], CAD, Pacemaker, Internal Defibrillator, Valvular Heart Disease, Other (please comment) Additional Cardiovasular History: HYPERTROPHIC OBSTRUCTIVE CARDIOMYOPATHY, ARTIFICIAL MITRAL VALVE, AICD Respiratory History: Shortness of Breath, Other (please comment) Additional Respiratory History: CHRONIC TOBACCO ABUSE Gastrointestinal History: GERD Genitourinary History: Denies History Endocrine History: Denies History Musculoskeletal History: Denies History Prosthesis or Implant: No Neurological History: Migraines Blood Disorders: Denies History Psychiatric History: Depression, Anxiety Disorders History of Sexually Transmitted Diseases: No Cancer History: Denies History In Past Year Been Physically Harmed or Verbally Threatened: No History of MDRO: No History of Other Communicable Diseases: No Tobacco Use: Current Every Day Smoker Alcohol Use: Occasionally Substance Use Type: None Previous Surgical History: No Type / Date of Surgery: PACER/DEFIB PLACEMENT. MITRAL VALVE REPAIR/ replace x2. HYSTER. BRITTNI. APPY. COLLAR BONE. CARDIAC STENTS Anesthesia Reactions: No Significant Family History: COPD, Diabetes, Lung disease, Seizures ROS - Limitations ROS Limitations: No Limitations Constitution: REPORTS: Denies Symptoms Cardiovascular: REPORTS: Edema Respiratory: REPORTS: Cough Non Productive, Shortness Of Breath Neurological: REPORTS: Denies Neuro Symptoms Gastrointestinal: REPORTS: Denies GI Symptoms Endocrine: REPORTS: Fatigue Musculoskeletal: REPORTS: Denies MS Symptoms Genitourinary: REPORTS: Denies Symptoms Eyes: REPORTS: Denies Symptoms ENT: REPORTS: Denies Symptoms Skin: REPORTS: Denies Skin Symptoms Lympathic: REPORTS: Denies Lympathic Symptoms Immunologic: POSITIVE: Denies Symptoms Psychiatric: POSITIVE: Denies Psych Symptoms Dyspnea Physical Exam - General Appearance General Appearance: REPORTS: Alert, Cooperative, No Evidence of Trauma, Moderate Distress - HEENT HEENT: POSITIVE: Head Inspection Nml, Eyes Inspection Nml, Ears Inspection Nml, Nose Inspection Nml, PERRL, EOMI - Neck Neck: REPORTS: Normal Inspection - Respiratory Respiratory: REPORTS: Respiratory Distress, Retractions, Decreased Air Movement , Speaks Broken Sentences, Other (Tachypnea is present at 28 breaths per minute. ) - Cardiovascular Cardiovascular: REPORTS: Regular Rate and Rhythm, Heart Sounds Normal, No JVD, Other (Heart Maximal impact point is displaced laterally.) - Abdomen Abdomen: Soft: (All Quadrants), Normal Bowel Sounds: (All Quadrants), Denies Tenderness: (All Quadrants), Distention: (All Quadrants) - Skin Skin: REPORTS: Intact, Normal For Race, Warm, Dry, No Rash - Extremities Extremity: Non-Tender: (All Extremities), Normal ROM: (All Extremities), Normal Inspection: (All Extremities), Pelvis Stable: (All Extremities) Dyspnea Progress - Results Reviewed by me Xrays/CTs/US Reviewed by me: Yes Discussed with Radiologist: Yes Lab Results Reviewed: Yes Lab Results:: Laboratory Results 07/21/16 07/21/16 Range/Units 10:13 10:45 WBC 5.27 (4.8-10.8) 10^3/uL RBC 4.20 (4.20-5.40) 10^6/uL Hgb 10.7 L (12.0-16.0) g/dL Hct 35.1 L (37.0-47.0) % MCV 83.6 (81-99) FL MCH 25.5 L (27-31) PG MCHC 30.5 L (33-37) g/dL RDW Std Deviation 50.9 H (39-50) fL RDW Coeff of Hussain 17.0 H (11.5-14.5) % Plt Count 282 (140-350) 10*3/uL MPV 9.9 (7.4-12.2) FL Immature Gran % (Auto) 0.2 (0-5) % Neut % (Auto) 73.1 (50-80) % Lymph % (Auto) 13.7 (10-50) % [place] % (Auto) 11.0 (5-15) % Eos % (Auto) 1.1 (0-8) % Baso % (Auto) 0.9 (0-1) % Immature Gran # (Auto) 0.01 10*3/UL Neut # (Auto) 3.85 10*3/UL Lymph # (Auto) 0.72 10*3/uL [place] # (Auto) 0.58 (0.3-0.8) 10*3/UL Eos # (Auto) 0.06 10*3/UL Baso # (Auto) 0.05 10*3/UL WBC Morphology Comment Normal morphology (NORM) Plt Morphology Comment Normal morphology (NORM) RBC Morph Comment Normal morphology (NORM) D-Dimer 1.10 H (0.00-0.59) mg/L Sodium 141 (135-145) meq/L Potassium 4.1 (3.8-5.2) meq/L Chloride 106 (98-112) meq/L Carbon Dioxide 19 L (23-33) meq/L Anion Gap 16 (5-20) BUN 12 (7-22) mg/dL Creatinine 0.6 (0.50-1.20) mg/dL Estimated GFR > 60 (>60 ml/min/1.73m(2)) BUN/Creatinine Ratio 20.00 (6-20) Glucose 101 (78-110) mg/dL Calculated Osmolality 291.0 (267-292) mOsm/kg Calcium 9.2 (8.7-10.7) mg/dL Magnesium 1.9 (1.6-2.4) mg/dL Total Bilirubin 0.7 (0.3-1.2) mg/dL GGT 34 (8-78) IU/L AST 24 (8-39) IU/L ALT 27 (9-52) IU/L Alkaline Phosphatase 125 (38-126) IU/L Troponin I 0.065 H (< 0.040) ng/mL NT-Pro-B Natriuret Pep 4780 H (0-125) PG/ML Total Protein 7.4 (6.1-8.0) g/dL Albumin 4.3 (3.5-4.8) g/dL Globulin 3.1 (2.50-4.10) g/dL Albumin/Globulin Ratio 1.30 (1.3-2.0) mg/g TSH 1.10 (0.2700-4.2000) uIU/mL Free T4 1.06 (0.93-1.71) ng/dL EKG Interpretation:: POSITIVE: Normal Sinus Rhythm - Patient's Progress Pain Medication Addressed: POSITIVE: No Re-Examine Time: 12:51 Status: POSITIVE: Improved MDM / ED Course: Patient was evaluated, an IV started, blood drawn and sent to the lab for studies, radiographic examinations were ordered. Patient was immediately requesting pain medication stating that her abdomen was pushing up on her chest and she was having difficulty breathing. Pain medication was declined at that time by me because I did not know her renal functions for the use of NSAIDs, with her complaints of abdominal pain I could not give her orals, and with her respiratory status I could not give her narcotics. She did receive a DuoNeb nebulizer treatment. Findings: CBC reveals anemia, comprehensive metabolic panel is unremarkable. TSH and T4 are normal. BNP is elevated at 4780. Chest x-ray shows congestive heart failure. CT scan of her abdomen shows inflammatory changes present in her abdomen. Left-sided pleural effusion that was present in a study from 2009 but is increased today. D-dimer is elevated at 1.1, troponin is slightly elevated at 0.06. Assessment: Congestive heart failure. Pleural effusion. Anemia. Next Plan: Admission, IV Lasix, VQ scan at 4 PM today. Air Movement: POSITIVE: Fair Quality Measure Initiative: CP/AMI: POSITIVE: EKG Quality Measure Initiative: CAP: POSITIVE: CXR or CT - Consult Consult (If Yes, Name of Consulting MD & Time Called): Yes (Dr. Jamison [id number]) Consulting MD will see pt:: [place]ITIVE[place] [facility] [place] Counseled: POSITIVE: Patient, Family, RE: Lab Results, RE: Radiology Results, RE : DX Patient Care Time - Estimated PCT Patient Care Time (In Minutes): 45 Vital Signs - Recent Vital Signs Vital Signs: Vital Signs (Last 8 hours) Temp Pulse Pulse Resp BP BP BP 07/21/16 13:46 96.9 F 88 24 111/72 07/21/16 13:43 97.8 F 66 28 H 110/76 07/21/16 09:36 96.7 F L 72 28 H 136/70 Pulse Ox 07/21/16 13:46 92 07/21/16 13:43 96 07/21/16 09:36 95 - VS Reviewed Vital Signs Reviewed: Yes Discharge Clinical Impression: Acute dyspnea, Congestive heart failure Discharge Disposition: Admit to Inpatient Condition: Stable Date Decision to Admit to Inpatient: 07/21/16 Time Decision to Admit to Inpatient: 12:52
[2016-07-21] MEDS ORDERED: NORMAL SALINE 10 ML SYRINGE FLUSH IVP PRN (10:47)
[2016-07-21 10:49] LABS: BASOPHILS # (AUTO) 0.05 10*3/UL; BASOPHILS % (AUTO) 0.9 % (0-1); EOSINOPHILS # (AUTO) 0.06 10*3/UL; EOSINOPHILS % (AUTO) 1.1 % (0-8); HEMATOCRIT 35.1 % (37.0-47.0); HEMOGLOBIN 10.7 g/dL (12.0-16.0); LYMPHOCYTES # (AUTO) 0.72 10*3/uL; MEAN CORPUSCULAR HEMOGLOBIN 25.5 PG (27-31); MEAN CORPUSCULAR HGB CONC 30.5 g/dL (33-37); MEAN CORPUSCULAR VOLUME 83.6 FL (81-99); MEAN PLATELET VOLUME 9.9 FL (7.4-12.2); MONOCYTES # (AUTO) 0.58 10*3/UL (0.3-0.8); NEUTROPHILS # (AUTO) 3.85 10*3/UL; NEUTROPHILS % (AUTO) 73.1 % (50-80)
[2016-07-21 10:52] LABS: PLATELET MORPHOLOGY COMMENT NORMAL MORPHOLOGY (NORM); RBC MORPHOLOGY COMMENT NORMAL MORPHOLOGY (NORM); WBC MORPHOLOGY COMMENT NORMAL MORPHOLOGY (NORM)
--- NOTE | 2016-07-21 11:01 | EKG ---
[address] [address] Measurements Intervals [place] Rate: 66 P: 59 MI: 88 QRS: -85 QRSD: 202 T: 80 QT: 565 QTc: 579 Interpretive Statements ELECTRONIC VENTRICULAR PACEMAKER ABNORMAL RHYTHM ECG Compared to ECG 05/12/2016 14:26:18 No significant changes Electronically Signed On 07-21-16 13:47:35 MDT by Dewayne Sweeney [email or web address]
[2016-07-21 11:08] LABS: BLOOD UREA NITROGEN 12 mg/dL (7-22); CALCIUM 9.2 mg/dL (8.7-10.7); EST GLOMERULAR FILTRATION > 60 (>60 ml/min/1.73m(2)); MAGNESIUM 1.9 mg/dL (1.6-2.4); SERUM ALBUMIN 4.3 g/dL (3.5-4.8)
[2016-07-21 11:26] LABS: FREE T4 (FREE THYROXINE) 1.06 ng/dL (0.93-1.71)
--- NOTE | 2016-07-21 11:47 | DI ---
XR CXR 1VW,07/21/2016 10:05 AM: Clinical History: Shortness of breath Previous Exam: May 12, 2016 Findings: A single frontal radiograph of the chest is obtained, and demonstrates a stable pacemaker. There are stable postsurgical changes consistent with prior sternotomy. There is stable cardiomegaly. There is some prominence of the perihilar vasculature. Impression: Cardiomegaly and increased pulmonary congestion most consistent with heart failure. Correlate clinica lly.
[2016-07-21] MEDS ORDERED: KETOROLAC 15 MG/1 ML VIAL IVP ONE (12:56)
[2016-07-21] MEDS ORDERED: FUROSEMIDE 10 MG/1 ML - 4 ML IVP ONE (12:56)
[2016-07-21] MEDS ORDERED: OLANZAPINE PO SCH (13:07)
[2016-07-21] MEDS ORDERED: CALCIUM CARBONATE 500 MG (TUMS) CHEWABLE TABLET PO PRN (13:07)
[2016-07-21] MEDS ORDERED: FLUOXETINE HCL PO SCH (13:07)
[2016-07-21] MEDS ORDERED: ALBUTEROL SULFATE 8.5 GM HFA INHALER INH PRN (13:07)
[2016-07-21] MEDS ORDERED: POLYETHYLENE GLYCOL 3350 17 GM POWDER PO PRN (13:07)
[2016-07-21] MEDS ORDERED: ONDANSETRON 4 MG/2 ML VIAL IVP PRN (13:07)
--- NOTE | 2016-07-21 13:28 | DI ---
CT ABD W/CN AND PELVIS W/CN,07/21/2016 11:43 AM: Clinical History: Pain and distention. Previous Exam: March 06, 2010 Findings: Multiple helically acquired CT images are obtained through the abdomen and pelvis without contrast, a nd demonstrate mild inflammatory changes involving the left peritoneal reflection at the level of the lumbosacral junction. There is no definite source of this inflammatory change identified. Patient is status post cholecystectomy. The liver is unremarkable. The pancreas, spleen, adrenals and kidneys are unremarkable. The ureters are normal in course and juvencio iber. The urinary bladder is unremarkable. There are few stable retroperitoneal lymph nodes which are nonpathologic by size criteria. A few peripheral vascular calcifications are seen. There is no free air nor free fluid. There is a left sided pleural effusion which was also seen in 20 10, but is slightly larger today. Impression: Vague nonspecific inflammatory changes of the left peritoneal reflection posteriorly with some stable prominent posterior lymph nodes.
[2016-07-21] MEDS ORDERED: Promethazine Tab 25 MG TAB PO PRN (14:08)
[2016-07-21] MEDS ORDERED: NITROGLYCERIN 0.4 MG SL TAB (BOTTLE OF 3) SL ONE (14:21)
[2016-07-21] MEDS: LIDOCAINE W/ SODIUM BICARB 0.5 ML SYR SUBD PRN (15:00)
[2016-07-21] MEDS: MORPHINE SULFATE 2 MG/1 ML IVP PRN ×3 (15:06→23:12)
--- NOTE | 2016-07-21 15:09 | PDOC ---
History and Physical - History of Present Illness Date and Time of Service: 07/21/2016, 1504 Chief Complaint: Short of breath History of Present Illness: This very pleasant 50-year-old female who unfortunately has had had 2 mitral valve replacements, has migraine headaches, amongst other medical issues. She comes in stating today that she's been short of breath, worsening over the last 2 days, and she thinks that her shortness of breath has been getting progressively worse over the last several months. Her Lasix was increased to twice daily in February or January of last year, but she was not able to stay on a twice-daily dose because she didn't have the right prescription at home she states. She wasn't able to get in with her primary care provider and when they called today to check on her the patient did not sound well and they asked her to go in for evaluation. She denies any fevers, chills, or cough. Her recent echocardiogram done here in February 2016 was essentially nondiagnostic. It could not be used to evaluate valve function. She does not recall when her last one was done. She complains of chest pressure associated with shortness of breath. She denies any nausea or vomiting. She denies any diaphoresis. She states that she sleeps with 4 pillows underneath her back, but states it's been a chronic issue for many years. She is normally on 2 L of oxygen per nasal cannula which is not changed. Her chest x-ray was consistent with wart congestive heart failure. There may be something going on on the left side on the chest x-ray and on the CT scan it showed a pleural effusion. Her d-dimer was slightly elevated. Past Medical History Medical History: 1. Mitral valve replacement 2. 2. Coronary artery disease. 3. ablation in [place] (although I do not know for what). 4. Hypertrophic cardiomyopathy and mitral valve prolapse leading to the mitral valve replacements above. 5. Bipolar disorder with anxiety. 6. Migraine headaches , on Topamax for prophylaxis. Surgical History: 1. Coronary Stents. 2. mitral valve replacement 2. 3. PACER/DEFIB PLACEMENT. 4. Total abdominal hysterectomy and bilateral sequential oophorectomy. 5. Cholecystectomy. 6. Appendectomy. 7. Collar bone repair Pertinent Family History: No reports of medical issues in the family history. Past Social History: Smokes a half pack per day, drinks alcohol on occasion. Has 1 son, described as healthy, lives alone in [facility] apartments. Tobacco Use: Current Every Day Smoker Substance Use Type: None Alcohol Use: Occasionally Medication / Allergies Home Medications: Home Medications Medication Instructions Recorded Confirmed Type Aspirin 1 tab PO DAILY tab 10/14/15 07/21/16 History Atorvastatin Calcium 1 tab-cap PO QHS #90 tab 02/18/16 07/21/16 Clinic Fluoxetine HCl 1 tab-cap PO DAILY #90 cap 02/18/16 07/21/16 Clinic Furosemide 1 tab PO DAILY #90 tab 02/18/16 07/21/16 Clinic Olanzapine/Fluoxetine HCl [Symbyax 1 tab-cap PO QHS #90 cap 02/18/16 07/21/16 Clinic 6-25 Mg Capsule] Omeprazole 1 tab-cap PO BID #180 tab-cap 02/18/16 07/21/16 Clinic Promethazine HCl 1 tab-cap PO Q6H #120 tab-cap 02/18/16 07/21/16 Clinic Ibuprofen 1 tab PO Q8H tab 04/07/16 07/21/16 History Vitamin E Mixed [Vitamin E] 400 unit PO BID tab 04/07/16 07/21/16 History Acetaminophen [Tylenol] 325 mg PO PRN 05/04/16 07/21/16 History Albuterol Sulfate [Proair Hfa] 2 puff INH Q4H 05/04/16 07/21/16 History Polyethylene Glycol 3350 [Miralax] 17 gm PO PRN PRN 05/04/16 07/21/16 History Losartan Potassium 1 tab-cap PO DAILY #90 tab-cap 05/14/16 07/21/16 Clinic Warfarin Sodium 1 tab-cap PO DAILY #30 tab-cap 06/23/16 07/21/16 Clinic Warfarin Sodium 1 tab-cap PO DAILY #60 tab-cap 06/23/16 07/21/16 Clinic Topiramate [Topamax] 1 tab-cap PO BID #120 tab 07/12/16 07/21/16 Clinic Allergies/Adverse Reactions: Allergies Allergy/AdvReac Type Severity Reaction Status Date / Time codeine [Codeine] Allergy Severe HIVES Verified 07/21/16 10:32 ketorolac tromethamine Allergy Severe HIVES Verified 07/21/16 10:32 [From Toradol] levofloxacin [From Levaquin] Allergy Severe Anaphylaxis Verified 07/21/16 10:32 ondansetron HCl Allergy Severe hives Verified 07/21/16 10:32 [From Zofran (as hydrochloride)] Penicillins Allergy Severe HIVES Verified 07/21/16 10:32 Sulfa (Sulfonamide Allergy Severe HIVES Verified 07/21/16 10:32 Antibiotics) gabapentin [From Neurontin] Allergy HIVES Verified 07/21/16 10:32 Review of Systems - Review of Systems All Systems: Reviewed & No Additional Complaints Except as Stated (I did a 12 point review systems and it is negative other than that discussed in history present illness and that noted below.) - Respiratory Respiratory: REPORTS: See HPI - Cardiovascular Cardiovascular: REPORTS: See HPI - Neurological Neurologic: REPORTS: Headache (Chronic migraine headaches that have been better on Topamax, averages about 1 month, left sided and associated with visual disturbances and nausea.) - Psychiatric Psychiatric: REPORTS: Other (Bipolar disorder.) Exam - Vitals Vital Signs: Vital Signs Temperature 96.9 F Temperature Source Temporal Artery Scan Pulse Rate [Pulse Oximeter 88 Right] Pulse Rate 66 Respiratory Rate 24 Blood Pressure [Left Arm] 111/72 Blood Pressure 110/76 Pulse Ox 92 Oxygen Flow Rate 2L Oxygen Delivery Method Nasal Cannula Height 5 ft 5 in Weight 175 lb - General General Appearance: POSITIVE: No Acute Distress, Cooperative - Head Head Exam: POSITIVE: Normal Inspection, Normocephalic, Atraumatic - Eye Eye Exam: POSITIVE: EOMI, No Scleral Icterus - ENT ENT Exam: POSITIVE: Mucous Membranes Moist - Neck Neck Exam: POSITIVE: Normal Inspection, No Tenderness, No Thyromegaly - Respiratory Respiratory Exam: POSITIVE: Breathing Non Labored Additional Respiratory Exam Details: Diminished breath sounds in left lower base. - Cardiovascular Cardiovascular Exam: POSITIVE: RRR, No Gallops, No Rubs, Systolic Murmur Additional Cardiovascular Details: Positive click. - GI/Abdominal GI/Abdominal Exam: POSITIVE: Normal Bowel Sounds, Non Tender, Non Distended, Soft - Rectal Rectal Exam: POSITIVE: Deferred - External Exam: POSITIVE: Deferred Exam: POSITIVE: Deferred - Extremities Extremities Exam: POSITIVE: No Edema Present, No Cyanosis Present, Clubbing Present - Back Back Exam: POSITIVE: Normal Inspection, No CVA Tenderness - Neurological Neurological Exam: POSITIVE: Alert, Oriented x 3, No Facial Droop, Speech Intact / Clear, Moves All Extremities Equally - Psychiatric Psychiatric Exam: POSITIVE: Flat Affect, Anxious Results - Labs CBC and BMP: 07/21/16 10:45 07/21/16 10:45 Labs - Last 24 Hours: Laboratory Results 07/21/16 07/21/16 Range/Units 10:13 10:45 WBC 5.27 (4.8-10.8) 10^3/uL RBC 4.20 (4.20-5.40) 10^6/uL Hgb 10.7 L (12.0-16.0) g/dL Hct 35.1 L (37.0-47.0) % MCV 83.6 (81-99) FL MCH 25.5 L (27-31) PG MCHC 30.5 L (33-37) g/dL RDW Std Deviation 50.9 H (39-50) fL RDW Coeff of Hussain 17.0 H (11.5-14.5) % Plt Count 282 (140-350) 10*3/uL MPV 9.9 (7.4-12.2) FL Immature Gran % (Auto) 0.2 (0-5) % Neut % (Auto) 73.1 (50-80) % Lymph % (Auto) 13.7 (10-50) % [place] % (Auto) 11.0 (5-15) % Eos % (Auto) 1.1 (0-8) % Baso % (Auto) 0.9 (0-1) % Immature Gran # (Auto) 0.01 10*3/UL Neut # (Auto) 3.85 10*3/UL Lymph # (Auto) 0.72 10*3/uL [place] # (Auto) 0.58 (0.3-0.8) 10*3/UL Eos # (Auto) 0.06 10*3/UL Baso # (Auto) 0.05 10*3/UL WBC Morphology Comment Normal morphology (NORM) Plt Morphology Comment Normal morphology (NORM) RBC Morph Comment Normal morphology (NORM) D-Dimer 1.10 H (0.00-0.59) mg/L Sodium 141 (135-145) meq/L Potassium 4.1 (3.8-5.2) meq/L Chloride 106 (98-112) meq/L Carbon Dioxide 19 L (23-33) meq/L Anion Gap 16 (5-20) BUN 12 (7-22) mg/dL Creatinine 0.6 (0.50-1.20) mg/dL Estimated GFR > 60 (>60 ml/min/1.73m(2)) BUN/Creatinine Ratio 20.00 (6-20) Glucose 101 (78-110) mg/dL Calculated Osmolality 291.0 (267-292) mOsm/kg Calcium 9.2 (8.7-10.7) mg/dL Magnesium 1.9 (1.6-2.4) mg/dL Total Bilirubin 0.7 (0.3-1.2) mg/dL GGT 34 (8-78) IU/L AST 24 (8-39) IU/L ALT 27 (9-52) IU/L Alkaline Phosphatase 125 (38-126) IU/L Troponin I 0.065 H (< 0.040) ng/mL NT-Pro-B Natriuret Pep 4780 H (0-125) PG/ML Total Protein 7.4 (6.1-8.0) g/dL Albumin 4.3 (3.5-4.8) g/dL Globulin 3.1 (2.50-4.10) g/dL Albumin/Globulin Ratio 1.30 (1.3-2.0) mg/g TSH 1.10 (0.2700-4.2000) uIU/mL Free T4 1.06 (0.93-1.71) ng/dL - Imaging Status: Image Reviewed by Me (Chest x-ray, on my view, shows enlarged heart with probable congestive heart failure increased pulmonary vascular congestion and possible silhouette sign on the left. CT scan of the chest shows effusion on the left side.) Assessment and Plan - Patient Problems (1) Acute systolic (congestive) heart failure Current Visit: Yes Status: Acute (2) H/O mitral valve replacement with mechanical valve Current Visit: Yes Status: Chronic (3) Migraine Current Visit: Yes Status: Chronic (4) Bipolar disorder Current Visit: Yes Status: Acute Qualifiers: Active/Remission status: remission status unspecified Qualified Description: Bipolar affective disorder, remission status unspecified Qualifier Code(s): (F31.9) Bipolar disorder, unspecified (5) Coronary artery disease Current Visit: Yes Status: Acute Qualifiers: Coronary Disease-Associated Artery/Lesion type: [place] artery [place] vs. transplanted heart: [place] heart Associated angina: angina presence unspecified Qualified Description: Coronary artery disease involving [place] coronary artery of [place] heart, angina presence unspecified Qualifier Code(s): (I25.10) Atherosclerotic heart disease of [place] coronary artery without angina pectoris - Assessment / Plan Additional Assessment/Plan Details: Admit the patient. Diurese with Lasix. Check troponin later tonight, but this patient does have a history of elevated troponins. I will try and get records from [facility] regarding any prior heart catheterizations Nitroglycerin when necessary. Morphine when necessary. Oxygen as necessary. Telemetry monitoring, but the patient has had a pace maker with AICD function placed his main understanding. Get EKG if not already done in the emergency room. Like to make sure the patient is on an TARAS inhibitor if at all possible and stop anti-inflammatory. I think anti-inflammatory can cause increased problems with renal function, hypertension, and may not be the best medication in the setting of known heart disease and heart failure. Try to get records from [facility] and [facility] to detail the patient's history of prior heart catheterizations and so forth to determine course of workup here. For example, I do not think the patient would be a good candidate for an echocardiogram here. That should probably be done in [place], and if not in [place], then consider [place]. Patient is full code. I discussed the above plan with the patient and she agreed. Photo / Body Diagrams - Uploaded Photos Uploaded Photos:
[2016-07-21] MEDS ORDERED: FUROSEMIDE 10 MG/1 ML - 10 ML IVP ONE (15:20)
[2016-07-21] MEDS ORDERED: POTASSIUM CHLORIDE 20 MEQ TAB PO ONE (15:21)
--- NOTE | 2016-07-21 17:38 | DI ---
NM PULMONARY PERF VENT VQ,07/21/2016 12:28 PM: Clinical History: Dyspnea and elevated d-dimer. Previous Exam: Chest x-ray performed July 21, 2016 Radiopharmaceutical: Images are obtained with ventilation using 45.0 mCi of technetium 99m DTPA in aerosolized form. Images were also obtained after 6.0 mCi of technetium 99m macro aggregated albumin. There is a large heart which limits evaluation of the left lung. There is multiple left-sided ventila tion defects. Findings: There are no perfusion defects identified. Impression: No mismatched ventilation/perfusion defects. Overall, this is low probability for pulmonary embolism.
[2016-07-21] MEDS: NORMAL SALINE 10 ML SYRINGE FLUSH IVP PRN (19:08)
[2016-07-21] MEDS: FUROSEMIDE 10 MG/1 ML - 10 ML IVP SCH (20:30)
[2016-07-21] MEDS: Warfarin 5 MG TAB PO SCH (20:30)
[2016-07-21] MEDS: OMEPRAZOLE 20 MG CAPSULE PO SCH (20:30)
[2016-07-21] MEDS: ATORVASTATIN 40 MG TABLET PO SCH (20:30)
[2016-07-21] MEDS ORDERED: TOPIRAMATE PO SCH (21:00)
[2016-07-21] MEDS ORDERED: Warfarin 5 MG TAB PO SCH (21:00)
[2016-07-22] MEDS: MORPHINE SULFATE 2 MG/1 ML IVP PRN ×6 (03:19→22:54)
[2016-07-22 06:44] LABS: BASOPHILS # (AUTO) 0.07 10*3/UL; BASOPHILS % (AUTO) 1.1 % (0-1); EOSINOPHILS # (AUTO) 0.11 10*3/UL; EOSINOPHILS % (AUTO) 1.8 % (0-8); HEMATOCRIT 34.7 % (37.0-47.0); HEMOGLOBIN 10.7 g/dL (12.0-16.0); MEAN CORPUSCULAR HGB CONC 30.8 g/dL (33-37); MEAN CORPUSCULAR VOLUME 84.4 FL (81-99); MEAN PLATELET VOLUME 10.2 FL (7.4-12.2); MONOCYTES # (AUTO) 0.73 10*3/UL (0.3-0.8); MONOCYTES % (AUTO) 11.9 % (5-15); NEUTROPHILS # (AUTO) 4.62 10*3/UL; NEUTROPHILS % (AUTO) 75.1 % (50-80); RED BLOOD COUNT 4.11 10^6/uL (4.20-5.40)
[2016-07-22 06:45] LABS: PLATELET MORPHOLOGY COMMENT NORMAL MORPHOLOGY (NORM); RBC MORPHOLOGY COMMENT NORMAL MORPHOLOGY (NORM); WBC MORPHOLOGY COMMENT NORMAL MORPHOLOGY (NORM)
[2016-07-22 07:08] LABS: BLOOD UREA NITROGEN 12 mg/dL (7-22); CALCIUM 8.9 mg/dL (8.7-10.7); EST GLOMERULAR FILTRATION > 60 (>60 ml/min/1.73m(2))
[2016-07-22] MEDS ORDERED: WARFARIN SODIUM PO SCH (09:00)
[2016-07-22] MEDS: POTASSIUM CHLORIDE 20 MEQ TAB PO SCH (09:34)
[2016-07-22] MEDS: OLANZapine Tab 5 MG TAB PO SCH (09:34)
[2016-07-22] MEDS: OMEPRAZOLE 20 MG CAPSULE PO SCH ×2 (09:34→20:19)
[2016-07-22] MEDS: FUROSEMIDE 10 MG/1 ML - 10 ML IVP SCH ×3 (09:34→20:19)
[2016-07-22] MEDS: FLUoxetine 20 MG CAPSULE PO SCH (09:34)
[2016-07-22] MEDS: Topiramate Tab 50 MG TAB PO SCH (09:34)
[2016-07-22] MEDS: LOSARTAN 25 MG TABLET PO SCH (09:35)
[2016-07-22] MEDS: ASPIRIN 81 MG (BABY) CHEWABLE TABLET PO SCH (09:35)
[2016-07-22] MEDS ORDERED: NICOTINE 14 MG /DAY PATCH TRANSDERM ONE (16:33)
--- NOTE | 2016-07-22 16:33 | PDOC(PROG) ---
Date and Time of Service: 07/22/2016, 1630 Interval History: Patient seen and evaluated earlier today. Still complained of chest pressure, reported no change in shortness breath. No nausea or vomiting. Workup negative for pulmonary emboli. I [facility] from [facility] [place], and the patient has no evidence of pulmonary emboli in May. She had 2 CT scans done at that time as best as I can tell that were negative. She has a VQ scan here that is done yesterday and appears low probability for PE. I spoke with cardiology regarding this patient as the patient has elevated troponins chronically since 2009. It was recommended that we should consider doing a nuclear medicine stress test and despite the patient's prior history of hypertrophic cardiomyopathy they felt the patient would be safe to do here so we have ordered a stress test. I spoke with the patient regarding these issues and she agreed and she really did not want any transfer for her care. Objective : Data - Labs CBC and BMP: 07/22/16 06:20 07/22/16 06:20 Labs - Last 24 Hours: Laboratory Results 07/21/16 07/22/16 Range/Units 18:47 06:20 WBC 6.15 (4.8-10.8) 10^3/uL RBC 4.11 L (4.20-5.40) 10^6/uL Hgb 10.7 L (12.0-16.0) g/dL Hct 34.7 L (37.0-47.0) % MCV 84.4 (81-99) FL MCH 26.0 L (27-31) PG MCHC 30.8 L (33-37) g/dL RDW Std Deviation 51.6 H (39-50) fL RDW Coeff of Hussain 17.1 H (11.5-14.5) % Plt Count 272 (140-350) 10*3/uL MPV 10.2 (7.4-12.2) FL Immature Gran % (Auto) 0.3 (0-5) % Neut % (Auto) 75.1 (50-80) % Lymph % (Auto) 9.8 L (10-50) % [place] % (Auto) 11.9 (5-15) % Eos % (Auto) 1.8 (0-8) % Baso % (Auto) 1.1 H (0-1) % Immature Gran # (Auto) 0.02 10*3/UL Neut # (Auto) 4.62 10*3/UL Lymph # (Auto) 0.60 10*3/uL [place] # (Auto) 0.73 (0.3-0.8) 10*3/UL Eos # (Auto) 0.11 10*3/UL Baso # (Auto) 0.07 10*3/UL WBC Morphology Comment Normal morphology (NORM) Plt Morphology Comment Normal morphology (NORM) RBC Morph Comment Normal morphology (NORM) PT 20.7 H (9.7-11.4) secs INR 1.98 (0.00-5.90) N/A Sodium 138 (135-145) meq/L Potassium 3.8 (3.8-5.2) meq/L Chloride 103 (98-112) meq/L Carbon Dioxide 22 L (23-33) meq/L Anion Gap 13 (5-20) BUN 12 (7-22) mg/dL Creatinine 0.6 (0.50-1.20) mg/dL Estimated GFR > 60 (>60 ml/min/1.73m(2)) BUN/Creatinine Ratio 20.00 (6-20) Glucose 105 (78-110) mg/dL Calculated Osmolality 285.0 (267-292) mOsm/kg Calcium 8.9 (8.7-10.7) mg/dL Troponin I 0.072 H 0.071 H (< 0.040) ng/mL Objective : Exam - General General Appearance: No Acute Distress, Cooperative Additional General Exam Details: Vital Signs - Last Taken Temperature 98.7 F 07/22/16 12:44 Pulse Rate 82 07/22/16 12:44 Respiratory Rate 18 07/22/16 12:44 Blood Pressure 112/54 07/22/16 12:44 Pulse Ox 94 07/22/16 12:44 - Eye Eye Exam: No Scleral Icterus - Respiratory Respiratory Exam: Clear to Auscultation - Bilaterally, Breathing Non Labored Additional Respiratory Exam Details: Breath sounds have improved. - Cardiovascular Cardiovascular Exam: RRR, No Gallops, No Rubs, Systolic Murmur, Clicks - GI/Abdominal GI/Abdominal Exam: Normal Bowel Sounds, Non Tender, Non Distended, Soft - Extremities Extremities Exam: No Clubbing Present, No Edema Present, No Cyanosis Present Additional Extremities Exam Details: Positive for varicose veins. - Neurological Neurological Exam: Alert, Oriented x 3, No Facial Droop, Speech Intact / Clear, Moves All Extremities Equally Assessment and Plan - Patient Problems (1) Acute systolic (congestive) heart failure Current Visit: Yes Status: Acute (2) H/O mitral valve replacement with mechanical valve Current Visit: Yes Status: Chronic (3) Migraine Current Visit: Yes Status: Chronic (4) Bipolar disorder Current Visit: Yes Status: Acute Qualifiers: Active/Remission status: remission status unspecified Qualified Description: Bipolar affective disorder, remission status unspecified Qualifier Code(s): (F31.9) Bipolar disorder, unspecified (5) Coronary artery disease Current Visit: Yes Status: Suspected Comment: On my review of the record, this was actually left anterior descending artery dissection in the setting of phenol ablation for hypertrophic cardiomyopathy which led to 2 stents. The patient then had in-stent restenosis. Qualifiers: Coronary Disease-Associated Artery/Lesion type: [place] artery [place] vs. transplanted heart: eagle heart Associated angina: angina presence unspecified Qualified Description: Coronary artery disease involving eagle coronary artery of eagle heart, angina presence unspecified Qualifier Code(s): (I25.10) Atherosclerotic heart disease of eagle coronary artery without angina pectoris (6) Tobacco abuse Current Visit: Yes Status: Acute Comment: We spoke about this and advised patient to quit. She states nicotine patches seem to help and I'll get her started on those. - Assessment / Plan Additional Assessment/Plan Details: Nicotine patches. Stress test starting tomorrow, stress images tomorrow and resting images on Tuesday. Continue diuresis but back off. Consider isosorbide mononitrate for chest pains and hypertension control. Photo / Body Diagrams - Uploaded Photos Uploaded Photos:
[2016-07-22] MEDS: NICOTINE 14 MG /DAY PATCH TRANSDERM SCH (17:37)
[2016-07-22] MEDS: NORMAL SALINE 10 ML SYRINGE FLUSH IVP PRN ×3 (19:11→22:54)
[2016-07-22] MEDS: Warfarin 5 MG TAB PO SCH (20:19)
[2016-07-22] MEDS: ATORVASTATIN 40 MG TABLET PO SCH (20:19)
[2016-07-23] MEDS: MORPHINE SULFATE 2 MG/1 ML IVP PRN ×6 (03:07→23:07)
[2016-07-23] MEDS: NORMAL SALINE 10 ML SYRINGE FLUSH IVP PRN ×4 (03:08→23:06)
[2016-07-23 06:05] LABS: BLOOD UREA NITROGEN 15 mg/dL (7-22); BUN/CREATININE RATIO 21.42 (6-20); EST GLOMERULAR FILTRATION > 60 (>60 ml/min/1.73m(2))
[2016-07-23] MEDS: Topiramate Tab 50 MG TAB PO SCH (08:11)
[2016-07-23] MEDS: OLANZapine Tab 5 MG TAB PO SCH (08:11)
[2016-07-23] MEDS: ASPIRIN 81 MG (BABY) CHEWABLE TABLET PO SCH (08:11)
[2016-07-23] MEDS: POTASSIUM CHLORIDE 20 MEQ TAB PO SCH (08:11)
[2016-07-23] MEDS: FLUoxetine 20 MG CAPSULE PO SCH (08:11)
[2016-07-23] MEDS: OMEPRAZOLE 20 MG CAPSULE PO SCH ×2 (08:11→22:05)
[2016-07-23] MEDS: FUROSEMIDE 10 MG/1 ML - 10 ML IVP SCH ×4 (08:12→22:05)
[2016-07-23] MEDS: LOSARTAN 25 MG TABLET PO SCH (08:12)
--- NOTE | 2016-07-23 08:51 | PDOC(PROG) ---
Date and Time of Service: 07/23/2016, 845 Interval History: Still complains of chest pressure and shortness breath. Chest pain is entirely reproducible with palpation. We did the stress portion of her Lexiscan stress test today. Resting images to follow tomorrow. No nausea or vomiting. Diuresis not as effective today. Objective : Data - Labs CBC and BMP: 07/22/16 06:20 07/23/16 04:41 Labs - Last 24 Hours: Laboratory Results 07/22/16 07/23/16 Range/Units 16:45 04:41 PT 22.4 H (9.7-11.4) secs INR 2.14 (0.00-5.90) N/A Sodium 141 (135-145) meq/L Potassium 4.1 (3.8-5.2) meq/L Chloride 111 (98-112) meq/L Carbon Dioxide 25 (23-33) meq/L Anion Gap 5 (5-20) BUN 15 (7-22) mg/dL Creatinine 0.7 (0.50-1.20) mg/dL Estimated GFR > 60 (>60 ml/min/1.73m(2)) BUN/Creatinine Ratio 21.42 H (6-20) Glucose 99 (78-110) mg/dL Calculated Osmolality 292.0 (267-292) mOsm/kg Calcium 9.0 (8.7-10.7) mg/dL NT-Pro-B Natriuret Pep 3890 H 3120 H (0-125) PG/ML Objective : Exam - General General Appearance: No Acute Distress, Cooperative Additional General Exam Details: Vital Signs - Last Taken Temperature 97.8 F 07/23/16 07:41 Pulse Rate 68 07/23/16 07:41 Respiratory Rate 20 07/23/16 07:41 Blood Pressure 113/61 07/23/16 07:41 Pulse Ox 98 07/23/16 07:41 - Eye Eye Exam: No Scleral Icterus - Respiratory Respiratory Exam: Clear to Auscultation - Bilaterally, Breathing Non Labored - Cardiovascular Cardiovascular Exam: RRR, No Gallops, No Rubs, Systolic Murmur, Clicks Additional Cardiovascular Details: Chest pain reproducible with palpation - GI/Abdominal GI/Abdominal Exam: Normal Bowel Sounds, Non Tender, Non Distended, Soft - Extremities Extremities Exam: No Clubbing Present, No Edema Present, No Cyanosis Present - Neurological Neurological Exam: Alert, Oriented x 3, No Facial Droop, Speech Intact / Clear, Moves All Extremities Equally Assessment and Plan - Patient Problems (1) Chest pain Current Visit: Yes Status: Acute (2) Acute systolic (congestive) heart failure Current Visit: Yes Status: Acute (3) H/O mitral valve replacement with mechanical valve Current Visit: Yes Status: Chronic (4) Migraine Current Visit: Yes Status: Chronic (5) Bipolar disorder Current Visit: Yes Status: Acute Qualifiers: Active/Remission status: remission status unspecified Qualified Description: Bipolar affective disorder, remission status unspecified Qualifier Code(s): (F31.9) Bipolar disorder, unspecified (6) Coronary artery disease Current Visit: Yes Status: Suspected Qualifiers: Coronary Disease-Associated Artery/Lesion type: [place] artery [place] vs. transplanted heart: [place] heart Associated angina: angina presence unspecified Qualified Description: Coronary artery disease involving [place] coronary artery of [place] heart, angina presence unspecified Qualifier Code(s): (I25.10) Atherosclerotic heart disease of [place] coronary artery without angina pectoris (7) Tobacco abuse Current Visit: Yes Status: Acute - Assessment / Plan Additional Assessment/Plan Details: continue with Pallavi scan stress test to determine if there is any CAD. Given that there is reproducible chest pain, this could be costochondritis. The patient had been on chronic anti-inflammatories and I think that may not be a good thing given her Coumadin use for her valve. I will try her on a Medrol Dosepak and start that today. I will go ahead and increase the Coumadin as well and I'll talk to pharmacy about that. Continue PT and INR checks daily. Hopefully stop the morphine by tomorrow. Continue diuresis and increase the Lasix today. The response to 40 mg 3 times a day overnight was not all that great so I think we need to increase it to 80 mg 3 times a day and watch. Photo / Body Diagrams - Uploaded Photos Uploaded Photos:
[2016-07-23] MEDS: METHYLPREDNISOLONE 4 MG TAB DOSE PACK PO SCH (09:08)
--- NOTE | 2016-07-23 15:13 | STRESSTEST ---
[facility] Interpretive Statements This is a 50 YO with history of hypertrophic cardiomyopathy post ablation, LAD dissection with two stents, smoker, and two mitral valve replacements. She presents with chest pain of unclear etiology. Appears to be in CHF. Diuresis did not help SOB or chest pain symptoms. Chronically elevated troponins in her normal range since 2009. Has AICD and pacer. Pallavi scan stress test performed with stress images today. Resting EKG shows paced rhythm. Patient had SOB and increased chest pain, some mild hypotension that is resolving with test completion. Plan: images today, resting portion of images tomorrow, radiology to review images. [email or web address]
[2016-07-23] MEDS: NICOTINE 14 MG /DAY PATCH TRANSDERM SCH (17:21)
[2016-07-23] MEDS: ATORVASTATIN 40 MG TABLET PO SCH (22:04)
[2016-07-24] MEDS: NITROGLYCERIN 0.4 MG SL TAB (BOTTLE OF 3) SL PRN (00:05)
[2016-07-24] MEDS ORDERED: CALCIUM CARBONATE 500 MG (TUMS) CHEWABLE TABLET PO PRN (00:16)
[2016-07-24] MEDS: MORPHINE SULFATE 2 MG/1 ML IVP PRN ×3 (03:11→11:02)
--- NOTE | 2016-07-24 05:42 | EKG ---
[address] [address] Measurements Intervals [place] Rate: 69 P: 92 OR: 130 QRS: -72 QRSD: 178 T: 88 QT: 547 QTc: 566 Interpretive Statements ELECTRONIC VENTRICULAR PACEMAKER ABNORMAL RHYTHM ECG Compared to ECG 07/21/2016 11:04:12 No significant changes Electronically Signed On 07-24-16 09:54:55 MDT by Dewayne Sweeney [email or web address]
[2016-07-24 06:17] LABS: BLOOD UREA NITROGEN 16 mg/dL (7-22); BUN/CREATININE RATIO 22.85 (6-20); CALCIUM 9.2 mg/dL (8.7-10.7); EST GLOMERULAR FILTRATION > 60 (>60 ml/min/1.73m(2))
[2016-07-24] MEDS ORDERED: POTASSIUM CHLORIDE 20 MEQ TAB PO ONE ×2 (09:36→18:00)
[2016-07-24] MEDS: FUROSEMIDE 10 MG/1 ML - 10 ML IVP SCH (09:47)
[2016-07-24] MEDS: FLUoxetine 20 MG CAPSULE PO SCH (09:47)
[2016-07-24] MEDS: LOSARTAN 25 MG TABLET PO SCH (09:48)
[2016-07-24] MEDS: OMEPRAZOLE 20 MG CAPSULE PO SCH ×2 (09:48→20:36)
[2016-07-24] MEDS: ASPIRIN 81 MG (BABY) CHEWABLE TABLET PO SCH (09:48)
[2016-07-24] MEDS: OLANZapine Tab 5 MG TAB PO SCH (09:49)
[2016-07-24] MEDS: Topiramate Tab 50 MG TAB PO SCH (09:49)
[2016-07-24] MEDS: POTASSIUM CHLORIDE 20 MEQ TAB PO SCH (09:49)
[2016-07-24] MEDS: METHYLPREDNISOLONE 4 MG TAB DOSE PACK PO SCH (11:40)
[2016-07-24] MEDS ORDERED: IPRATROPIUM/ALBUTEROL SULFATE 3 ML NEB NEB ONE (11:57)
--- NOTE | 2016-07-24 12:08 | DI ---
2 DAY LEXISCAN STRESS & REST MYOCARDIAL PERFUSION SCANS, 07/23/2016 6:00 AM : Clinical History: Chest pressure. Previous Exam: None at this facility. The patient was stressed by Dr. Aragon The standard Lexiscan protocol was used. Please see the Doctor's report. At the designated time, 31.0 mCi of 99Tc-sestimibi was injected IV. Stress gated tomograms were acquired within one hour of the i njection. For the resting scans, 31.2 mCi was injected IV and resting gated tomograms were acquired in similar fashion. Stress scans were performed on July 23, 2016; the resting scans were performed on July 24, 2016. Quantitative and qualitative analyses were performed. Quantitative analysis was performed with the [place] [facility] [id number] protocols. Very low dose limited CT scans of the chest are o btained through the level of the heart for attenuation correction of the gated stress and rest cardia c SPECT data. Non-attenuated and attenuated scans were processed for review, and the attenuated scans were used for final interpretation of this study. Review of the raw data images and manager quality files indicate that these series of examinations ar e of good quality. There was some increased activity within the stomach adjacent to the inferior wall of the left ventricle. Stress and rest left ventricular chamber sizes are enlarged and slightly dilated. Stress and rest LVEF are 59 % and 61 %, respectively. There is some fixed defects within the anterior base and the inferior septal wall. There is some mil d reversibility of the lateral wall but these areas are predominantly fixed. There is diffuse hypokinesis. Transient ischemic dilatation ratio is 0.96, with a normal range up to 1.22 for patients str essed with the Eugenio protocol and up to 1.33 for patients stressed with the Lexiscan protocol. The very low dose CT scans through the level of the heart demonstrate cardiomegaly, peripheral vascul ar calcifications, coronary artery calcifications and an artificial mitral valve. There is also a pac emaker noted as well as a small left pleural effusion and some mild edema. Diffuse degenerative changes of the spine are mild in degree. Patient is status post sternotomy. There is no adenopathy or evidence of lung nodules. Readin. Very mild reversibility involving the septal wall. There is predominantly a fixed defect within th e inferior wall and anterior septal wall. This may represent some very mild ischemia. 2. Diffuse hypokinesis with low normal ejection fraction.
[2016-07-24] MEDS ORDERED: HEPARIN 5000 UNIT/1 ML IV ONE ×2 (12:41→13:02)
--- NOTE | 2016-07-24 12:48 | PDOC(PROG) ---
Date and Time of Service: 07/24/2016, 1245 Interval History: Still complains of chest pain and states her shortness breath has not changed. I did a repeat chest x-ray this morning and it is negative for fluid overload and it appears that all the fluid in the left lower lobe has cleared out now on my view of the study consistent with improving congestive heart failure despite an elevated BNP. We get stress test results back and it does show a mild reversible defect in the anterior septal wall is likely. I discussed with cardiology and they do not have a bed today, but it does not look like the patient has infarcted acutely as her troponin range has remained consistent with her chronic elevations of troponins. That being said, I think the patient warrants catheterization and we will try to wait out a bed for tomorrow. No nausea or vomiting. The patient is willing to go to [place]. Objective : Data - Labs CBC and BMP: 07/22/16 06:20 07/24/16 05:00 Labs - Last 24 Hours: Laboratory Results 07/24/16 Range/Units 05:00 PT 18.1 H (9.7-11.4) secs INR 1.74 (0.00-5.90) N/A Sodium 140 (135-145) meq/L Potassium 3.1 L (3.8-5.2) meq/L Chloride 100 (98-112) meq/L Carbon Dioxide 25 (23-33) meq/L Anion Gap 15 (5-20) BUN 16 (7-22) mg/dL Creatinine 0.7 (0.50-1.20) mg/dL Estimated GFR > 60 (>60 ml/min/1.73m(2)) BUN/Creatinine Ratio 22.85 H (6-20) Glucose 106 (78-110) mg/dL Calculated Osmolality 290.0 (267-292) mOsm/kg Calcium 9.2 (8.7-10.7) mg/dL NT-Pro-B Natriuret Pep 4380 H (0-125) PG/ML - EKG Data -: EKG Interpreted by Me - EKG Data EKG Interpretation: Other (Paced rhythm.) Objective : Exam - General General Appearance: No Acute Distress, Cooperative Additional General Exam Details: Vital Signs - Last Taken Temperature 97.0 F 07/24/16 11:57 Pulse Rate 67 07/24/16 11:57 Respiratory Rate 20 07/24/16 11:57 Blood Pressure 99/58 07/24/16 11:57 Pulse Ox 94 07/24/16 11:57 Currently on 2 L per nasal cannula. - Eye Eye Exam: No Scleral Icterus - Respiratory Respiratory Exam: Clear to Auscultation - Bilaterally, Breathing Non Labored Additional Respiratory Exam Details: Tenderness to palpation of chest. - Cardiovascular Cardiovascular Exam: RRR, No Murmur, No Clicks, No Gallops, No Rubs, No JVD - GI/Abdominal GI/Abdominal Exam: Normal Bowel Sounds, Non Tender, Non Distended, Soft - Extremities Extremities Exam: No Clubbing Present, No Edema Present, No Cyanosis Present - Neurological Neurological Exam: Alert, Oriented x 3, No Facial Droop, Speech Intact / Clear, Moves All Extremities Equally - Psychiatric Psychiatric Exam: Anxious Assessment and Plan - Patient Problems (1) Angina at rest Current Visit: Yes Status: Acute (2) Coronary artery disease Current Visit: Yes Status: Suspected Qualifiers: Coronary Disease-Associated Artery/Lesion type: [place] artery [place] vs. transplanted heart: [place] heart Associated angina: angina presence unspecified Qualified Description: Coronary artery disease involving [place] coronary artery of [place] heart, angina presence unspecified Qualifier Code(s): (I25.10) Atherosclerotic heart disease of [place] coronary artery without angina pectoris (3) Chest pain Current Visit: Yes Status: Acute (4) H/O mitral valve replacement with mechanical valve Current Visit: Yes Status: Chronic (5) Migraine Current Visit: Yes Status: Chronic (6) Bipolar disorder Current Visit: Yes Status: Acute Qualifiers: Active/Remission status: remission status unspecified Qualified Description: Bipolar affective disorder, remission status unspecified Qualifier Code(s): (F31.9) Bipolar disorder, unspecified (7) Tobacco abuse Current Visit: Yes Status: Acute (8) Chronic congestive heart failure Current Visit: Yes Status: Acute Qualifiers: Congestive heart failure type: unspecified congestive heart failure type Qualified Description: Chronic congestive heart failure, unspecified congestive heart failure type Qualifier Code(s): (I50.9) Heart failure, unspecified - Assessment / Plan Additional Assessment/Plan Details: I would like to transfer the patient to [facility] when a bed opens up for consideration of heart catheterization. In the meantime, we will stop Coumadin, continue daily PT and INR checks, and start a heparin drip so that it can be turned off in the setting of a heart catheterization. In addition to morphine, we will try ranexa for pain. As her and has not worked to control pain and has dropped pressures significantly during the hospital stay. Patient thought her pain felt like pneumonia, but there is no evidence of pneumonia on imaging thus far. No evidence of pulmonary emboli, and this is been tested frequently since May. She has a negative VQ scan here. Back off on diuresis to by mouth medications now that patient's chest x-ray is clear and discontinue catheter. Replace potassium. Photo / Body Diagrams - Uploaded Photos Uploaded Photos:
[2016-07-24] MEDS ORDERED: IPRATROPIUM/ALBUTEROL SULFATE 3 ML NEB NEB SCH (13:00)
[2016-07-24] MEDS ORDERED: FUROSEMIDE 40 MG TABLET PO SCH (13:00)
[2016-07-24] MEDS: MORPHINE SULFATE 4 MG/1 ML IVP PRN ×5 (13:07→23:56)
[2016-07-24] MEDS: LIDOCAINE W/ SODIUM BICARB 0.5 ML SYR SUBD PRN (15:15)
[2016-07-24] MEDS: NICOTINE 14 MG /DAY PATCH TRANSDERM SCH (17:30)
[2016-07-24] MEDS: ATORVASTATIN 40 MG TABLET PO SCH (20:36)
[2016-07-24] MEDS: NORMAL SALINE 10 ML SYRINGE FLUSH IVP PRN ×2 (20:36→23:56)
[2016-07-24] MEDS: RANEXA 500 MG PO SCH (20:41)
[2016-07-24] MEDS ORDERED: Warfarin 5 MG TAB PO SCH (21:00)
[2016-07-25] MEDS: MORPHINE SULFATE 4 MG/1 ML IVP PRN ×4 (03:04→12:21)
[2016-07-25] MEDS: NORMAL SALINE 10 ML SYRINGE FLUSH IVP PRN (03:05)
[2016-07-25 06:35] LABS: BLOOD UREA NITROGEN 20 mg/dL (7-22); BUN/CREATININE RATIO 28.57 (6-20); CALCIUM 9.3 mg/dL (8.7-10.7); EST GLOMERULAR FILTRATION > 60 (>60 ml/min/1.73m(2))
[2016-07-25] MEDS: POTASSIUM CHLORIDE 20 MEQ TAB PO SCH (08:57)
[2016-07-25] MEDS: Topiramate Tab 50 MG TAB PO SCH (08:57)
[2016-07-25] MEDS: FLUoxetine 20 MG CAPSULE PO SCH (08:57)
[2016-07-25] MEDS: ASPIRIN 81 MG (BABY) CHEWABLE TABLET PO SCH (08:57)
[2016-07-25] MEDS: OLANZapine Tab 5 MG TAB PO SCH (08:58)
[2016-07-25] MEDS: OMEPRAZOLE 20 MG CAPSULE PO SCH (08:58)
[2016-07-25] MEDS: LOSARTAN 25 MG TABLET PO SCH (08:58)
[2016-07-25] MEDS ORDERED: Meloxicam Tab 7.5 MG TABLET PO SCH (09:00)
[2016-07-25] MEDS ORDERED: AZITHROMYCIN 250 MG TABLET PO SCH (09:00)
[2016-07-25] MEDS: RANEXA 500 MG PO SCH (10:09)
[2016-07-25] MEDS: NITROGLYCERIN 0.4 MG SL TAB (BOTTLE OF 3) SL PRN (12:22)
--- NOTE | 2016-07-25 12:30 | DCSUMMARY ---
Hospitalization Summary Admit Date: 07/21/16 Discharge Date: 07/25/16 Primary Diagnosis:: unstable angina, at rest Hospital Course: This is a 50-year-old female with an extensive cardiac history including hypertrophic cardiomyopathy status post phenol ablation, with LAD stents due to LAD dissection at the time of that phenol ablation. She also has had mitral valve replacement 2, in-stent restenosis, ventricular tachycardia that required the placement of an AICD with pacemaker function (dual-chamber). The patient came in with chest pain complaints and ruled out for myocardial infarction, although very difficult to assess entirely. The patient has had chronically elevated troponin stating back to 2009. We cannot really tell from her EKG whether she's had a heart attack, so I spoke with cardiology regarding this patient and continued chest pain despite when necessary nitroglycerin, and morphine. I will note by the way that the patient had hypotension response to nitroglycerin on one episode and on the other episode she used when necessary nitroglycerin sublingual, her pain was relieved. The recommendation from cardiology was to do a nuclear stress test, which we did, which showed small reversible defect involving the septal wall. There is predominantly fixed defect along the inferior wall. I cannot get the patient's pain under control, tried steroids thinking possible pericarditis but that did not help, the patient did have some reproducible pain that I thought might be costochondritis but it did not respond to anti-inflammatories or steroids. She just got over pneumonia in May, but there is no evidence of pneumonia. She did have pulmonary edema on admission, but I was able to diurese her effectively and that is cleared up from chest x-ray although BNP still remains elevated. We stopped her Coumadin and have her on a heparin drip and her most recent PTT is over 35. Today, the patient still complains of substernal chest pain, but she states her shortness of breath is improved. She is able to eat, no nausea or vomiting. Assessment and Plan: 1. As per discharge assessments noted 2. Disposition: Patient is discharged to Dr. bird at [facility] 3. Condition on discharge, stable and improved. 4. Diet: regular diet 5. Activities: As per [facility] 6. Follow-Up: 1. She is willing to go for further evaluation [facility] 2. Dr. Alegria following discharge. 7. Medications at the Time of Discharge: Active Medications Generic Name Dose Route Start Last Admin Trade Name Freq PRN Reason Stop Dose Admin Albuterol Sulfate 2 puff 07/21/16 13:07 Proair Hfa Inhaler INH RTQ4H PRN Bronchospasm Aspirin 81 mg 07/22/16 09:00 07/25/16 08:57 Aspirin Chewable Tab PO 81 mg DAILY ISABELL Administration Atorvastatin Calcium 40 mg 07/21/16 21:00 07/24/16 20:36 Lipitor PO 40 mg BEDTIME ISABELL Administration Calcium Carbonate 1 - 2 tab 07/24/16 00:16 07/24/16 00:21 Tums PO 2 tab Q2H PRN Administration Heartburn Fluoxetine HCl 20 mg 07/22/16 09:00 07/25/16 08:57 Prozac PO 20 mg DAILY ISABELL Administration Furosemide 20 mg 07/25/16 13:00 Lasix PO BID@0700,1300 [facility] Sodium Chloride 25 mls @ 200 mls/hr 07/21/16 13:07 Normal Saline 0.9% IV .Post Infusion PRN No Primary IV for Flush ONLY Heparin Sodium/Dextrose 500 mls @ 18.702 mls/hr 07/24/16 13:00 07/25/16 11:49 Heparin (Premix) IV 14 unit/kg/hr .Per Protocol ISABELL Titration Protocol 12 UNIT/KG/HR Lidocaine HCl 0.5 ml 07/21/16 13:07 07/24/16 15:15 Lidocaine Buffered Inj SUBD 0.5 ml ONCE PRN Administration IV Starts Losartan Potassium 25 mg 07/22/16 09:00 07/25/16 08:58 Cozaar PO 25 mg DAILY ISABELL Administration Morphine Sulfate 4 mg 07/24/16 12:40 07/25/16 12:21 Morphine Inj IVP 4 mg Q2H PRN Administration Pain Nicotine 1 patch 07/22/16 17:00 07/24/16 17:30 Nicoderm Cq 14mg Patch TRANSDERM 1 patch DAILY@1700 [facility] Administration Nitroglycerin 1 tab 07/21/16 14:21 07/24/16 00:05 Nitrostat Sl 0.4mg Tab SL 1 tab Q5M PRN Administration Chest Pain Non-Formulary Medication 500 mg 07/24/16 21:00 07/25/16 10:09 Ranexa PO Not Given BID [facility] Olanzapine 5 mg 07/22/16 09:00 07/25/16 08:58 Zyprexa Tab PO 5 mg DAILY ISABELL Administration Omeprazole 20 mg 07/21/16 21:00 07/25/16 08:58 Prilosec PO 20 mg BID ISABELL Administration Polyethylene Glycol 17 gm 07/21/16 13:07 Miralax Packet PO DAILY PRN CONSTIPATION Potassium Chloride 20 meq 07/22/16 09:00 07/25/16 08:57 Klor-Con PO 20 meq DAILY ISABELL Administration Promethazine HCl 25 mg 07/21/16 14:08 Phenergan PO Q6H PRN Nausea Sodium Chloride 5 - 20 ml 07/21/16 13:07 07/25/16 03:05 Saline Flush IVP 10 ml BID PRN Administration Flush Topiramate 100 mg 07/22/16 09:00 07/25/16 08:57 Topamax PO 100 mg DAILY ISABELL Administration 8. Time, care, counseling and coordination of care for this discharge is greater than 30 minutes. Exam - Vitals Vital Signs: Vital Signs Temperature 98 F Temperature Source Temporal Artery Scan Pulse Rate [Telemetry] 81 Pulse Rate [Apical] 80 Pulse Rate [Pulse Oximeter 66 Right] Pulse Rate 68 Respiratory Rate 20 Blood Pressure [Left Arm] 125/77 Blood Pressure [Right Arm] 104/41 Blood Pressure 110/76 Pulse Ox 99 Oxygen Flow Rate 2 Oxygen Delivery Method Nasal Cannula Height 5 ft 5 in Weight 171 lb 12.8 oz - General General Appearance: POSITIVE: No Acute Distress, Cooperative - Head Head Exam: POSITIVE: Normal Inspection, Normocephalic, Atraumatic - Eye Eye Exam: POSITIVE: No Scleral Icterus - Respiratory Respiratory Exam: POSITIVE: Clear to Auscultation - Bilaterally, Breathing Non Labored - Cardiovascular Cardiovascular Exam: POSITIVE: RRR, No Gallops, No Rubs, Systolic Murmur, No JVD, Clicks - GI/Abdominal GI/Abdominal Exam: POSITIVE: Normal Bowel Sounds, Non Tender, Non Distended, Soft - Extremities Extremities Exam: POSITIVE: No Clubbing Present, No Edema Present, No Cyanosis Present Additional Extremities Exam Details: Has varicose veins, right side greater than left. IV and foot looks okay without erythema. - Neurological Neurological Exam: POSITIVE: Alert, Oriented x 3, No Facial Droop, Speech Intact / Clear, Moves All Extremities Equally - Psychiatric Psychiatric Exam: POSITIVE: Flat Affect Data Perinent Studies: Laboratory Results 07/21/16 07/21/16 07/21/16 Range/Units 10:13 10:45 18:47 WBC 5.27 (4.8-10.8) 10^3/uL RBC 4.20 (4.20-5.40) 10^6/uL Hgb 10.7 L (12.0-16.0) g/dL Hct 35.1 L (37.0-47.0) % MCV 83.6 (81-99) FL MCH 25.5 L (27-31) PG MCHC 30.5 L (33-37) g/dL RDW Std Deviation 50.9 H (39-50) fL RDW Coeff of Hussain 17.0 H (11.5-14.5) % Plt Count 282 (140-350) 10*3/uL MPV 9.9 (7.4-12.2) FL Immature Gran % (Auto) 0.2 (0-5) % Neut % (Auto) 73.1 (50-80) % Lymph % (Auto) 13.7 (10-50) % Stevens % (Auto) 11.0 (5-15) % Eos % (Auto) 1.1 (0-8) % Baso % (Auto) 0.9 (0-1) % Immature Gran # (Auto) 0.01 10*3/UL Neut # (Auto) 3.85 10*3/UL Lymph # (Auto) 0.72 10*3/uL Stevens # (Auto) 0.58 (0.3-0.8) 10*3/UL Eos # (Auto) 0.06 10*3/UL Baso # (Auto) 0.05 10*3/UL WBC Morphology Comment Normal morphology (NORM) Plt Morphology Comment Normal morphology (NORM) RBC Morph Comment Normal morphology (NORM) PT (9.7-11.4) secs INR (0.00-5.90) N/A APTT (22.6-31.3) SECS D-Dimer 1.10 H (0.00-0.59) mg/L Sodium 141 (135-145) meq/L Potassium 4.1 (3.8-5.2) meq/L Chloride 106 (98-112) meq/L Carbon Dioxide 19 L (23-33) meq/L Anion Gap 16 (5-20) BUN 12 (7-22) mg/dL Creatinine 0.6 (0.50-1.20) mg/dL Estimated GFR > 60 (>60 ml/min/1.73m(2)) BUN/Creatinine Ratio 20.00 (6-20) Glucose 101 (78-110) mg/dL Calculated Osmolality 291.0 (267-292) mOsm/kg Calcium 9.2 (8.7-10.7) mg/dL Magnesium 1.9 (1.6-2.4) mg/dL Total Bilirubin 0.7 (0.3-1.2) mg/dL GGT 34 (8-78) IU/L AST 24 (8-39) IU/L ALT 27 (9-52) IU/L Alkaline Phosphatase 125 (38-126) IU/L Troponin I 0.065 H 0.072 H (< 0.040) ng/mL NT-Pro-B Natriuret Pep 4780 H (0-125) PG/ML Total Protein 7.4 (6.1-8.0) g/dL Albumin 4.3 (3.5-4.8) g/dL Globulin 3.1 (2.50-4.10) g/dL Albumin/Globulin Ratio 1.30 (1.3-2.0) mg/g TSH 1.10 (0.2700-4.2000) uIU/mL Free T4 1.06 (0.93-1.71) ng/dL 07/22/16 07/22/16 07/23/16 Range/Units 06:20 16:45 04:41 WBC 6.15 (4.8-10.8) 10^3/uL RBC 4.11 L (4.20-5.40) 10^6/uL Hgb 10.7 L (12.0-16.0) g/dL Hct 34.7 L (37.0-47.0) % MCV 84.4 (81-99) FL MCH 26.0 L (27-31) PG MCHC 30.8 L (33-37) g/dL RDW Std Deviation 51.6 H (39-50) fL RDW Coeff of Hussain 17.1 H (11.5-14.5) % Plt Count 272 (140-350) 10*3/uL MPV 10.2 (7.4-12.2) FL Immature Gran % (Auto) 0.3 (0-5) % Neut % (Auto) 75.1 (50-80) % Lymph % (Auto) 9.8 L (10-50) % Stevens % (Auto) 11.9 (5-15) % Eos % (Auto) 1.8 (0-8) % Baso % (Auto) 1.1 H (0-1) % Immature Gran # (Auto) 0.02 10*3/UL Neut # (Auto) 4.62 10*3/UL Lymph # (Auto) 0.60 10*3/uL Stevens # (Auto) 0.73 (0.3-0.8) 10*3/UL Eos # (Auto) 0.11 10*3/UL Baso # (Auto) 0.07 10*3/UL WBC Morphology Comment Normal morphology (NORM) Plt Morphology Comment Normal morphology (NORM) RBC Morph Comment Normal morphology (NORM) PT 20.7 H 22.4 H (9.7-11.4) secs INR 1.98 2.14 (0.00-5.90) N/A APTT (22.6-31.3) SECS D-Dimer (0.00-0.59) mg/L Sodium 138 141 (135-145) meq/L Potassium 3.8 4.1 (3.8-5.2) meq/L Chloride 103 111 (98-112) meq/L Carbon Dioxide 22 L 25 (23-33) meq/L Anion Gap 13 5 (5-20) BUN 12 15 (7-22) mg/dL Creatinine 0.6 0.7 (0.50-1.20) mg/dL Estimated GFR > 60 > 60 (>60 ml/min/1.73m(2)) BUN/Creatinine Ratio 20.00 21.42 H (6-20) Glucose 105 99 (78-110) mg/dL Calculated Osmolality 285.0 292.0 (267-292) mOsm/kg Calcium 8.9 9.0 (8.7-10.7) mg/dL Magnesium (1.6-2.4) mg/dL Total Bilirubin (0.3-1.2) mg/dL GGT (8-78) IU/L AST (8-39) IU/L ALT (9-52) IU/L Alkaline Phosphatase (38-126) IU/L Troponin I 0.071 H (< 0.040) ng/mL NT-Pro-B Natriuret Pep 3890 H 3120 H (0-125) PG/ML Total Protein (6.1-8.0) g/dL Albumin (3.5-4.8) g/dL Globulin (2.50-4.10) g/dL Albumin/Globulin Ratio (1.3-2.0) mg/g TSH (0.2700-4.2000) uIU/mL Free T4 (0.93-1.71) ng/dL 07/24/16 07/25/16 07/25/16 Range/Units 05:00 04:30 11:10 WBC (4.8-10.8) 10^3/uL RBC (4.20-5.40) 10^6/uL Hgb (12.0-16.0) g/dL Hct (37.0-47.0) % MCV (81-99) FL MCH (27-31) PG MCHC (33-37) g/dL RDW Std Deviation (39-50) fL RDW Coeff of Hussain (11.5-14.5) % Plt Count (140-350) 10*3/uL MPV (7.4-12.2) FL Immature Gran % (Auto) (0-5) % Neut % (Auto) (50-80) % Lymph % (Auto) (10-50) % Stevens % (Auto) (5-15) % Eos % (Auto) (0-8) % Baso % (Auto) (0-1) % Immature Gran # (Auto) 10*3/UL Neut # (Auto) 10*3/UL Lymph # (Auto) 10*3/uL Stevens # (Auto) (0.3-0.8) 10*3/UL Eos # (Auto) 10*3/UL Baso # (Auto) 10*3/UL WBC Morphology Comment (NORM) Plt Morphology Comment (NORM) RBC Morph Comment (NORM) PT 18.1 H 16.7 H (9.7-11.4) secs INR 1.74 1.61 (0.00-5.90) N/A APTT 36.4 H (22.6-31.3) SECS D-Dimer (0.00-0.59) mg/L Sodium 140 137 (135-145) meq/L Potassium 3.1 L 4.4 D (3.8-5.2) meq/L Chloride 100 103 (98-112) meq/L Carbon Dioxide 25 24 (23-33) meq/L Anion Gap 15 10 (5-20) BUN 16 20 (7-22) mg/dL Creatinine 0.7 0.7 (0.50-1.20) mg/dL Estimated GFR > 60 > 60 (>60 ml/min/1.73m(2)) BUN/Creatinine Ratio 22.85 H 28.57 H (6-20) Glucose 106 94 (78-110) mg/dL Calculated Osmolality 290.0 286.0 (267-292) mOsm/kg Calcium 9.2 9.3 (8.7-10.7) mg/dL Magnesium (1.6-2.4) mg/dL Total Bilirubin (0.3-1.2) mg/dL GGT (8-78) IU/L AST (8-39) IU/L ALT (9-52) IU/L Alkaline Phosphatase (38-126) IU/L Troponin I 0.038 (< 0.040) ng/mL NT-Pro-B Natriuret Pep 4380 H (0-125) PG/ML Total Protein (6.1-8.0) g/dL Albumin (3.5-4.8) g/dL Globulin (2.50-4.10) g/dL Albumin/Globulin Ratio (1.3-2.0) mg/g TSH (0.2700-4.2000) uIU/mL Free T4 (0.93-1.71) ng/dL Patient Problems - Patient Problem List (1) Angina at rest Current Visit: Yes Status: Acute (2) Coronary artery disease Current Visit: Yes Status: Suspected Qualifiers: Coronary Disease-Associated Artery/Lesion type: [place] artery [place] vs. transplanted heart: circle heart Associated angina: angina presence unspecified Qualified Description: Coronary artery disease involving [place] coronary artery of [place] heart, angina presence unspecified Qualifier Code(s): (I25.10) Atherosclerotic heart disease of [place] coronary artery without angina pectoris (3) Chest pain Current Visit: Yes Status: Acute (4) H/O mitral valve replacement with mechanical valve Current Visit: Yes Status: Chronic (5) Migraine Current Visit: Yes Status: Chronic (6) Bipolar disorder Current Visit: Yes Status: Acute Qualifiers: Active/Remission status: remission status unspecified Qualified Description: Bipolar affective disorder, remission status unspecified Qualifier Code(s): (F31.9) Bipolar disorder, unspecified (7) Tobacco abuse Current Visit: Yes Status: Acute (8) Chronic congestive heart failure Current Visit: Yes Status: Acute Qualifiers: Congestive heart failure type: unspecified congestive heart failure type Qualified Description: Chronic congestive heart failure, unspecified congestive heart failure type Qualifier Code(s): (I50.9) Heart failure, unspecified
[2016-07-25 12:39] VITALS: RESP 19; TEMP 98.6
[2016-07-25] MEDS ORDERED: FUROSEMIDE 20 MG TABLET PO SCH (13:00)
--- NOTE | 2016-07-29 14:30 | DI ---
CHEST : Cardiomegaly is noted with atheromatous changes of the dorsal aorta. Transvenous AICD , valv e prosthesis and post surgical sternal sutures are noted in position. Compared to the previous examin ation of 07/21/16 there is resolution of the CHF and slight accentuation of the pulmonary vasculature in both lung bases. The lung vyas are otherwise essentially clear.
== END 2016-07-25 12:48 | disposition short-term general hospital (02) | DRG 303 ==
LOC: ER 09:35 → MED/SURG 13:03
PROVIDERS: ADMIT Family Medicine; ATTEND Family Medicine
DX: I25.110 Atherosclerotic heart disease of native coronary artery with unstable angina pectoris (principal); R06.00 Dyspnea, unspecified; Z95.2 Presence of prosthetic heart valve; G43.909 Migraine, unspecified, not intractable, without status migrainosus; F31.9 Bipolar disorder, unspecified; Z72.0 Tobacco use; I50.9 Heart failure, unspecified
CPT/HCPCS: 71010; 74177; 78582; 80053; 82977; 83735; 83880; 84439; 84443; 84484; 85025; 85379; 93005; 93010; 94640; 99284 ×2; J7620; 36415; 78452; 80048; 85610; 85730; 93016; 93017; 93018; 94761; J1644; J1940; J2270

== ENCOUNTER 2016-10-14 15:13 | Emergency (ER) | payer OTHER ==
[2016-10-14] MEDS ORDERED: diphenhydrAMINE 50 MG/1 ML VIAL IVP ONE (15:40)
[2016-10-14] MEDS ORDERED: NORMAL SALINE 10 ML SYRINGE FLUSH IVP PRN (15:40)
[2016-10-14] MEDS ORDERED: Prochlorperazine Edisylate Inj 10mg/2ml vial IVP ONE (15:40)
[2016-10-14] MEDS ORDERED: Sodium Chloride 0.9% 500 ML PRIMARY IV ONE (15:40)
[2016-10-14 15:56] VITALS: RESP 16
[2016-10-14 16:04] LABS: BASOPHILS # (AUTO) 0.07 10*3/UL; BASOPHILS % (AUTO) 1.2 % (0-1); EOSINOPHILS # (AUTO) 0.07 10*3/UL; EOSINOPHILS % (AUTO) 1.2 % (0-8); HEMATOCRIT 31.8 % (37.0-47.0); HEMOGLOBIN 9.4 g/dL (12.0-16.0); LYMPHOCYTES # (AUTO) 0.89 10*3/uL; MEAN CORPUSCULAR HEMOGLOBIN 22.2 PG (27-31); MEAN CORPUSCULAR HGB CONC 29.6 g/dL (33-37); MEAN PLATELET VOLUME 9.7 FL (7.4-12.2); MONOCYTES # (AUTO) 0.54 10*3/UL (0.3-0.8); MONOCYTES % (AUTO) 9.3 % (5-15); NEUTROPHILS % (AUTO) 72.7 % (50-80); RED BLOOD COUNT 4.24 10^6/uL (4.20-5.40)
[2016-10-14 16:07] LABS: PLATELET MORPHOLOGY COMMENT NORMAL MORPHOLOGY (NORM); RBC MORPHOLOGY COMMENT NORMAL MORPHOLOGY (NORM); WBC MORPHOLOGY COMMENT NORMAL MORPHOLOGY (NORM)
[2016-10-14 16:16] LABS: BLOOD UREA NITROGEN 17 mg/dL (7-22); BUN/CREATININE RATIO 24.28 (6-20); C-REACTIVE PROTEIN 0.9 mg/dL (0.0-0.9); CALCIUM 9.1 mg/dL (8.7-10.7); EST GLOMERULAR FILTRATION > 60 (>60 ml/min/1.73m(2))
[2016-10-14] MEDS: MORPHINE SULFATE 4 MG/1 ML IVP ONE ×2 (16:28→17:01)
[2016-10-14] MEDS ORDERED: MORPHINE SULFATE 4 MG/1 ML IVP ONE (16:39)
[2016-10-14 17:11] VITALS: TEMP 97.6
--- NOTE | 2016-10-14 17:22 | PDOC ---
Headache HPI - General Chief Complaint: Headache Stated Complaint: MIGRAINE Date Seen by Provider: 10/14/16 Time Seen by Provider: 15:35 Source: POSITIVE: Patient Exam Limitations: POSITIVE: No limitations Nurse's Notes Reviewed & Considered: Yes - History of Present Illness Initial Comments: The patient is a 50-year-old female with a known history of migraine headaches who presents to the emergency department with headache. She states that she had onset of headache approximately 2 hours ago while at work. She states that her current headache is similar to headaches that she has had in the past. She has associated visual aura as well as light sensitivity. She also has associated nausea without any vomiting. She denies any recent illness, neck pain, numbness or weakness in her arms or legs or any other associated complaints. - Patient Home Medications Home Medications: Home Medications Aspirin 1 tab PO DAILY tab 10/14/15 Atorvastatin Calcium 1 tab-cap PO QHS #90 tab 02/18/16 Fluoxetine HCl 1 tab-cap PO DAILY #90 cap 02/18/16 Furosemide 1 tab PO DAILY #90 tab 02/18/16 Olanzapine/Fluoxetine HCl [Symbyax 6-25 Mg Capsule] 1 tab-cap PO QHS #90 cap 09/26 Omeprazole 1 tab-cap PO BID #180 tab-cap 02/18/16 Promethazine HCl 1 tab-cap PO Q6H #120 tab-cap 02/18/16 Ibuprofen 1 tab PO Q8H tab 04/07/16 Vitamin E Mixed [Vitamin E] 400 unit PO BID tab 04/07/16 Acetaminophen [Tylenol] 325 mg PO PRN 05/04/16 Albuterol Sulfate [Proair Hfa] 2 puff INH Q4H 05/04/16 Polyethylene Glycol 3350 [Miralax] 17 gm PO PRN PRN 05/04/16 Losartan Potassium 1 tab-cap PO DAILY #90 tab-cap 05/14/16 Warfarin Sodium 1 tab-cap PO DAILY #30 tab-cap 06/23/16 Warfarin Sodium 1 tab-cap PO DAILY #60 tab-cap 06/23/16 Topiramate [Topamax] 1 tab-cap PO BID #120 tab 09/21/16 - Patient Allergies Allergies/Adverse Reactions: Allergies Allergy/AdvReac Type Severity Reaction Status Date / Time codeine [Codeine] Allergy Severe HIVES Verified 07/24/16 21:43 ketorolac tromethamine Allergy Severe HIVES Verified 07/24/16 21:43 [From Toradol] levofloxacin [From Levaquin] Allergy Severe Anaphylaxis Verified 07/24/16 21:43 ondansetron HCl Allergy Severe hives Verified 07/24/16 21:43 [From Zofran (as hydrochloride)] Penicillins Allergy Severe HIVES Verified 07/24/16 21:43 Sulfa (Sulfonamide Allergy Severe HIVES Verified 07/24/16 21:43 Antibiotics) gabapentin [From Neurontin] Allergy HIVES Verified 07/24/16 21:43 Past Medical History - heen HEENT History: Denies History Cardiovascular History: Hypertension, CHF, Previous NM, CAD, Pacemaker, Internal Defibrillator, Valvular Heart Disease, Other (please comment) Additional Cardiovasular History: HYPERTROPHIC OBSTRUCTIVE CARDIOMYOPATHY, ARTIFICIAL MITRAL VALVE, AICD Respiratory History: Shortness of Breath, Other (please comment) Additional Respiratory History: CHRONIC TOBACCO ABUSE Gastrointestinal History: GERD Genitourinary History: Denies History Endocrine History: Denies History Musculoskeletal History: Denies History Prosthesis or Implant: No Neurological History: Migraines Blood Disorders: Denies History Psychiatric History: Depression, Anxiety Disorders History of Sexually Transmitted Diseases: No Female Reproductive History: Denies History LMP: Unknown Obstetrical History: Denies History Cancer History: Denies History In Past Year Been Physically Harmed or Verbally Threatened: No History of MDRO: No History of Other Communicable Diseases: No Tobacco Use: Current Every Day Smoker Alcohol Use: Occasionally Type of alcohol normally used: Beer Substance Use Type: None Previous Surgical History: No Type / Date of Surgery: PACER/DEFIB PLACEMENT. MITRAL VALVE REPAIR/ replace x2. HYSTER. BRITTNI. APPY. COLLAR BONE. CARDIAC STENTS Anesthesia Reactions: No Significant Family History: COPD, Diabetes, Lung disease, Seizures Past Medical History Reviewed: Reviewed - No Changes ROS - Limitations ROS Limitations: No Limitations Constitution: DENIES: Chills, Fever Cardiovascular: REPORTS: Denies Cardiac Symptoms Respiratory: REPORTS: Denies Resp Symptoms Neurological: REPORTS: Headache. DENIES: Numbness, Weakness Gastrointestinal: REPORTS: Nausea. DENIES: Vomitting Eyes: REPORTS: Vision Changes (Visual aura in light sensitivity) ENT: REPORTS: Denies Symptoms Skin: DENIES: Rash Headache Exam - General Appearance General Appearance: POSITIVE: Alert, Cooperative, No Acute Distress - HEENT Head / Face: POSITIVE: Atraumatic, No Facial Swelling Eyes: POSITIVE: Inspection Normal Ears: POSITIVE: Ears Normal Inspection Nose: POSITIVE: Inspection Normal Oropharynx: POSITIVE: External Inspection Nml, Pharynx Inspect. Nml, Moist Mucous Membranes - Neck Neck: POSITIVE: Normal Inspection. NEGATIVE: Lymphadenopathy - Respiratory / CVS Respiratory / CVS: POSITIVE: No Respiratory Distress, Regular Rate/Rhythm, Breath Sounds Normal, Other (Mechanical heart valve sounds) - Abdomen Abdomen: Soft: (All Quadrants), Denies Tenderness: (All Quadrants) - Extremities Extremity: Normal Inspection: (All Extremities) - Neuro / Psych Higher Functions: POSITIVE: Oriented x3 Cranial Nerves: POSITIVE: Normal As Tested Sensorimotor: POSITIVE: No Motor Deficits, No Sensory Deficits Headache Progress - Results Reviewed by me Lab Results Reviewed: Yes Lab Results:: Laboratory Results 10/14/16 Range/Units 15:52 WBC 5.78 (4.8-10.8) 10^3/uL RBC 4.24 (4.20-5.40) 10^6/uL Hgb 9.4 L (12.0-16.0) g/dL Hct 31.8 L (37.0-47.0) % MCV 75.0 L (81-99) FL MCH 22.2 L (27-31) PG MCHC 29.6 L (33-37) g/dL RDW Std Deviation 52.1 H (39-50) fL RDW Coeff of Hussain 19.6 H (11.5-14.5) % Plt Count 338 (140-350) 10*3/uL MPV 9.7 (7.4-12.2) FL Immature Gran % (Auto) 0.2 (0-5) % Neut % (Auto) 72.7 (50-80) % Lymph % (Auto) 15.4 (10-50) % [place] % (Auto) 9.3 (5-15) % Eos % (Auto) 1.2 (0-8) % Baso % (Auto) 1.2 H (0-1) % Immature Gran # (Auto) 0.01 10*3/UL Neut # (Auto) 4.20 10*3/UL Lymph # (Auto) 0.89 10*3/uL [place] # (Auto) 0.54 (0.3-0.8) 10*3/UL Eos # (Auto) 0.07 10*3/UL Baso # (Auto) 0.07 10*3/UL WBC Morphology Comment Normal morphology (NORM) Plt Morphology Comment Normal morphology (NORM) RBC Morph Comment Normal morphology (NORM) PT 22.5 H (9.7-11.4) secs INR 2.11 (0.00-5.90) N/A Sodium 139 (135-145) meq/L Potassium 3.7 L (3.8-5.2) meq/L Chloride 105 (98-112) meq/L Carbon Dioxide 22 L (23-33) meq/L Anion Gap 12 (5-20) BUN 17 (7-22) mg/dL Creatinine 0.7 (0.50-1.20) mg/dL Estimated GFR > 60 (>60 ml/min/1.73m(2)) BUN/Creatinine Ratio 24.28 H (6-20) Glucose 92 (78-110) mg/dL Calculated Osmolality 289.0 (267-292) mOsm/kg Calcium 9.1 (8.7-10.7) mg/dL C-Reactive Protein 0.9 (0.0-0.9) mg/dL - Patient's Progress MDM / ED Course: Shortly after arrival an IV was established and the patient did receive a 500 mL bolus of normal saline as well as Compazine 5 mg and Benadryl 25 mg IV. She stated that she had no relief from these treatments. This has been typical of the way she has responded in the past. She did receive morphine 4 mg IV which did help slightly and the dose was repeated. She did subsequently have fairly good pain relief in her pain level was down to about a 4 out of 10. She felt that she could go home and rest. She was advised to rest and continue her current medications as previously prescribed. She will return to the emergency room if any worsening or change in symptoms. Follow-up with primary care as needed. - Consult Counseled: POSITIVE: Patient, RE: Lab Results, RE: DX, RE: Need for F/U Patient Care Time - Estimated PCT Patient Care Time (In Minutes): 20 Vital Signs - Recent Vital Signs Vital Signs: Vital Signs (Last 8 hours) Temp Pulse Resp BP Pulse Ox 10/14/16 17:07 97.6 F 76 16 128/97 98 08/03/17 15:22 97.3 F 68 16 114/68 95 10/14/16 15:15 97.3 F 68 18 114/68 95 - VS Reviewed Vital Signs Reviewed: Yes Discharge Clinical Impression: Headache Discharge Disposition: Discharged to Home Condition: Stable Patient Instructions Given at Discharge: Acute Headache (ED) Additional Instructions: Rest and push fluids. Return to the emergency room if worsening headache, any worsening or change in symptoms. Continue current medications as previously prescribed. Follow Up With: ENOCH ALCOCER [Primary Care Provider] -
== END 2016-10-14 18:03 | disposition home or self-care (01) ==
LOC: ER 15:13
DX: R51 Headache (principal); R11.0 Nausea
CPT/HCPCS: 80048; 85025; 85610; 86140; 96361; 96374; 96375; 96376; 99282; 99283; J0780; J1200; J2270; J7030

== ENCOUNTER 2016-11-04 21:28 | Emergency (ER) | payer OTHER ==
[2016-11-04] MEDS ORDERED: PROMETHAZINE 25 MG/1 ML VIAL IM ONE (21:48)
[2016-11-04] MEDS ORDERED: HYDROmorphone 2 MG/1 ML IM ONE ×2 (21:48→22:25)
[2016-11-04 21:55] VITALS: RESP 20; TEMP 96.7
--- NOTE | 2016-11-04 22:40 | PDOC ---
Headache HPI - General Chief Complaint: Headache Stated Complaint: MIGRAINE Date Seen by Provider: 11/04/16 Time Seen by Provider: 21:30 Source: POSITIVE: Patient Exam Limitations: POSITIVE: No limitations Nurse's Notes Reviewed & Considered: Yes - History of Present Illness Initial Comments: The patient is a 50-year-old female who presents to the emergency department with complaints of headache. She does have a history of migraines. She states that she had onset of headache approximately 2 hours ago. She took some prescription strength ibuprofen at home without any relief. She has associated nausea however has not had any vomiting. She states that she does have associated spots in her vision. She denies any recent trauma or illness she denies any numbness or weakness in her arms or legs. She states her current headache is exactly the same as headache she has had previously. She currently rates her pain about an 8 out of 10. - Patient Home Medications Home Medications: Home Medications Aspirin 1 tab PO DAILY tab 10/14/15 Atorvastatin Calcium 1 tab-cap PO QHS #90 tab 02/18/16 Fluoxetine HCl 1 tab-cap PO DAILY #90 cap 02/18/16 Furosemide 1 tab PO DAILY #90 tab 02/18/16 Olanzapine/Fluoxetine HCl [Symbyax 6-25 Mg Capsule] 1 tab-cap PO QHS #90 cap 09/26 Omeprazole 1 tab-cap PO BID #180 tab-cap 02/18/16 Promethazine HCl 1 tab-cap PO Q6H #120 tab-cap 02/18/16 Ibuprofen 1 tab PO Q8H tab 04/07/16 Vitamin E Mixed [Vitamin E] 400 unit PO BID tab 04/07/16 Acetaminophen [Tylenol] 325 mg PO PRN 05/04/16 Albuterol Sulfate [Proair Hfa] 2 puff INH Q4H 05/04/16 Polyethylene Glycol 3350 [Miralax] 17 gm PO PRN PRN 05/04/16 Losartan Potassium 1 tab-cap PO DAILY #90 tab-cap 05/14/16 Warfarin Sodium 1 tab-cap PO DAILY #30 tab-cap 06/23/16 Warfarin Sodium 1 tab-cap PO DAILY #60 tab-cap 06/23/16 Topiramate [Topamax] 1 tab-cap PO BID #120 tab 09/21/16 - Patient Allergies Allergies/Adverse Reactions: Allergies Allergy/AdvReac Type Severity Reaction Status Date / Time codeine [Codeine] Allergy Severe HIVES Verified 11/04/16 21:33 ketorolac tromethamine Allergy Severe HIVES Verified 11/04/16 21:33 [From Toradol] levofloxacin [From Levaquin] Allergy Severe Anaphylaxis Verified 11/04/16 21:33 ondansetron HCl Allergy Severe hives Verified 11/04/16 21:33 [From Zofran (as hydrochloride)] Penicillins Allergy Severe HIVES Verified 11/04/16 21:33 Sulfa (Sulfonamide Allergy Severe HIVES Verified 11/04/16 21:33 Antibiotics) gabapentin [From Neurontin] Allergy HIVES Verified 11/04/16 21:33 Past Medical History - heen HEENT History: Denies History Cardiovascular History: Hypertension, CHF, Previous PA, CAD, Pacemaker, Internal Defibrillator, Valvular Heart Disease, Other (please comment) Additional Cardiovasular History: HYPERTROPHIC OBSTRUCTIVE CARDIOMYOPATHY, ARTIFICIAL MITRAL VALVE, AICD Respiratory History: Shortness of Breath, Other (please comment) Additional Respiratory History: CHRONIC TOBACCO ABUSE Gastrointestinal History: GERD Genitourinary History: Denies History Endocrine History: Denies History Musculoskeletal History: Denies History Prosthesis or Implant: No Neurological History: Migraines Blood Disorders: Denies History Psychiatric History: Depression, Anxiety Disorders History of Sexually Transmitted Diseases: No Female Reproductive History: Denies History Obstetrical History: Denies History Cancer History: Denies History In Past Year Been Physically Harmed or Verbally Threatened: No History of MDRO: No History of Other Communicable Diseases: No Tobacco Use: Current Every Day Smoker Alcohol Use: Occasionally Substance Use Type: None Previous Surgical History: No Type / Date of Surgery: PACER/DEFIB PLACEMENT. MITRAL VALVE REPAIR/ replace x2. HYSTER. BRITTNI. APPY. COLLAR BONE. CARDIAC STENTS Anesthesia Reactions: No Significant Family History: COPD, Diabetes, Lung disease, Seizures Past Medical History Reviewed: Reviewed - No Changes ROS - Limitations ROS Limitations: No Limitations Constitution: DENIES: Chills, Fever Cardiovascular: REPORTS: Denies Cardiac Symptoms Respiratory: REPORTS: Denies Resp Symptoms Neurological: REPORTS: Headache. DENIES: Numbness, Weakness Gastrointestinal: REPORTS: Nausea. DENIES: Vomitting Headache Exam - General Appearance General Appearance: POSITIVE: Alert, Cooperative, No Acute Distress - HEENT Head / Face: POSITIVE: Atraumatic, No Facial Swelling Eyes: POSITIVE: Inspection Normal, PERRL, EOM's Intact Ears: POSITIVE: Ears Normal Inspection Nose: POSITIVE: Inspection Normal Oropharynx: POSITIVE: Pharynx Inspect. Nml, Airway Intact, Voice Normal, Moist Mucous Membranes - Neck Neck: POSITIVE: Normal Inspection, Lymphadenopathy - Respiratory / CVS Respiratory / CVS: POSITIVE: No Respiratory Distress, Regular Rate/Rhythm, Other (Mechanical heart valve sounds) Peripheral Pulses: Dorsalis-pedis (R): 2+, Dorsalis-pedis (L): 2+ - Extremities Extremity: Normal ROM: (All Extremities), Normal Inspection: (All Extremities) - Neuro / Psych Higher Functions: POSITIVE: Oriented x3, Normal Speech Cranial Nerves: POSITIVE: Normal As Tested Sensorimotor: POSITIVE: No Motor Deficits, No Sensory Deficits Headache Progress - Patient's Progress MDM / ED Course: The patient presents with atypical migraine headache presentation for her. The patient has extremely difficult IV access. She does not appear to be clinically dehydrated. Decision was made to try IM medications for treatment of her headache. She was given Dilaudid 1 mg IM and Phenergan 25 mg IM. Her pain level came down to a 7 out of 10 in her nausea resolved. She was given a second dose of Dilaudid 1 mg IM. Her pain improved down to a 5 out of 10 and vital signs remained stable. She thought that she would be able to go home and rest at this point. She is advised to continue her regular medications as previously prescribed. She does have Phenergan at home as needed for nausea. She will return to the emergency room if increased pain, vomiting or dehydration , any worsening or change in symptoms. - Consult Counseled: POSITIVE: Patient, RE: DX, RE: Need for F/U Patient Care Time - Estimated PCT Patient Care Time (In Minutes): 20 Vital Signs - Recent Vital Signs Vital Signs: Vital Signs (Last 8 hours) Temp Pulse Resp BP Pulse Ox 11/04/16 21:28 96.7 F L 81 20 118/60 93 - VS Reviewed Vital Signs Reviewed: Yes Discharge Clinical Impression: Headache Discharge Disposition: Discharged to Home Condition: Good Patient Instructions Given at Discharge: Acute Headache (ED) Additional Instructions: Rest and push fluids. Continue current medications as previously prescribed. Return to the emergency room if worsening headache, worsening or change in symptoms. Follow-up with primary care in 3-5 days. Follow Up With: ENOCH ALCOCER [Primary Care Provider] -
== END 2016-11-04 22:55 | disposition home or self-care (01) ==
LOC: ER 21:28
DX: R51 Headache (principal); R11.0 Nausea
CPT/HCPCS: 96372; 99282 ×2; J1170; J2550

== ENCOUNTER 2017-04-01 21:05 | Inpatient (IN) ==
[2017-04-01] MEDS ORDERED: HYDROmorphone 2 MG/1 ML IVP ONE (21:30)
[2017-04-01] MEDS ORDERED: Sodium Chloride 0.9% 1,000 ML PRIMARY IV ONE (21:39)
[2017-04-01] MEDS ORDERED: LIDOCAINE W/ SODIUM BICARB 0.5 ML SYR ONE (21:39)
[2017-04-01] MEDS ORDERED: NORMAL SALINE 10 ML SYRINGE FLUSH IVP PRN (21:39)
[2017-04-01] MEDS ORDERED: HYDROmorphone 2 MG/1 ML ONE (21:46)
[2017-04-01 21:48] LABS: Hematocrit [HCT] 30.4 % (37.0-47.0); Hemoglobin [HGB] 9.1 g/dL (12.0-16.0); MEAN CORPUSCULAR HEMOGLOBIN 21.6 PG (27-31); MEAN CORPUSCULAR HGB CONC 29.9 g/dL (33-37); MEAN PLATELET VOLUME 10.3 FL (7.4-12.2); RED BLOOD COUNT 4.22 10^6/uL (4.20-5.40)
[2017-04-01 21:55] LABS: BLOOD UREA NITROGEN 19 mg/dL (7-22); BUN/CREATININE RATIO 31.66 (6-20); SERUM ALBUMIN 4.2 g/dL (3.5-4.8)
[2017-04-01 21:59] LABS: PLATELET MORPHOLOGY COMMENT SEE COMMENTS (NORM); WBC MORPHOLOGY COMMENT NORMAL MORPHOLOGY (NORM)
[2017-04-01 22:00] LABS: BAND NEUTROPHILS % 1 % (0-10); BASOPHILS % (MANUAL) 1 % (0-1); EOSINOPHILS % (MANUAL) 0 % (0-8); MONOCYTES % (MANUAL) 5 % (0-12); NEUTROPHILS % (MANUAL) 82 % (50-80); RBC MORPHOLOGY COMMENT SEE COMMENTS (NORM)
[2017-04-01] MEDS ORDERED: MORPHINE SULFATE 4 MG/1 ML IVP ONE (22:43)
[2017-04-01] MEDS ORDERED: FUROSEMIDE 10 MG/1 ML - 4 ML IVP ONE (22:50)
--- NOTE | 2017-04-01 22:52 | DI ---
EXAM: XR Chest, 1 View CLINICAL HISTORY: Chest pain: TECHNIQUE: Frontal view of the chest. COMPARISON: 12/20/16 FINDINGS: Lungs: Left lower lobe airspace disease favoring atelectasis though nonspecific. Pleural space: Possible small left pleural effusion. No pneumothorax. Heart: Cardiomegaly. Mediastinum: Unremarkable. Bones/joints: Sternotomy wires. Cardiac valve prosthesis. AICD. Soft tissues: Interstitial prominence likely indicating edema. Vasculature: Pulmonary venous congestion. IMPRESSION: 1. Cardiomegaly with venous congestion and possible mild interstitial edema. There is also questionable small left pleural effusion. Correlate for congestive failure. 2. Left lower lobe airspace disease favoring atelectasis.
[2017-04-02] MEDS ORDERED: HYDROmorphone 2 MG/1 ML IVP ONE (00:05)
[2017-04-02] MEDS ORDERED: NORMAL SALINE 10 ML SYRINGE FLUSH IVP PRN (01:45)
[2017-04-02] MEDS ORDERED: LIDOCAINE W/ SODIUM BICARB 0.5 ML SYR SUBD PRN (01:45)
[2017-04-02] MEDS ORDERED: LIDOCAINE HCL 2 % 10 ML JELLY URO-JECT TOPICAL PRN (01:45)
[2017-04-02] MEDS ORDERED: ACETAMINOPHEN 325 MG TABLET PO PRN (01:45)
[2017-04-02] MEDS ORDERED: Magnesium Sulfate 2gm (Premix) 2 GM/50 ML BAG IV ONE (01:45)
[2017-04-02] MEDS ORDERED: ENOXAPARIN SODIUM 80 MG/0.8 ML SYRINGE SUBCUT SCH (03:00)
--- NOTE | 2017-04-02 03:38 | PDOC ---
Chest Pain HPI - General Chief Complaint: Chest Pain Stated Complaint: CHEST PAIN Date Seen by Provider: 04/01/17 Time Seen by Provider: 21:15 Source: Patient, EMS Exam Limitations: POSITIVE: No limitations Treatment Prior to Arrival: REPORTS: Nitroglycerin, Oxygen, Aspirin Nurse's Notes Reviewed & Considered: Yes EMS Report Reviewed & Considered: Verbal - History of Present Illness Initial Comments: The patient is a 51-year-old female who was brought to the emergency room by ambulance. 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 She states this episode lasted about "30 seconds "then resolved. She had another episode of" sharp chest pain "shortly thereafter which lasted about 15 minutes, and then had a recurrence which began about 40 minutes ago and has persisted until her presentation to the emergency room. She called the ambulance. Paramedics administered 4 baby aspirin, nitroglycerin and oxygen prior to arrival to the emergency room. Patient has a history of having a cardiac pacemaker defibrillator. She states she also had a mitral valve replacement and has had a myocardial infarction. She states she has a history of congestive heart failure. She is presently on anticoagulation with warfarin. Body Location Affected: REPORTS: Chest Timing: REPORTS: Abrupt, Intermittent Duration: 1-3 hours (Approximately 2 hours) Severity: Moderate Intermittent Episodes Lasting (minutes): 40 Persistent/Worse since (date): 04/01/17 Persistent/Worse since (time): 20:30 Context: REPORTS: Rest Quality: REPORTS: Sharpness Radiation: REPORTS: None Associated Symptoms: REPORTS: Shortness of Breath. DENIES: Nausea, Vomiting, Diaphoresis, Hurts to Breathe, Palpitations, Productive Cough (blood), Productive Cough (sputum), Weakness, Dizziness Modifying Factors: improves with: Pressing On Area Similar Symptoms Previously: Yes Recently seen/treated/hospitalized: No Any Prior Injuries Related to Current Complaint?: No - Patient Home Medications Home Medications: Home Medications Vitamin E Mixed [Vitamin E] 400 unit PO BID tab 04/07/16 Acetaminophen [Tylenol] 325 mg PO PRN 05/04/16 warfarin 7.5 mg tablet 7.5 mg PO DAILY #30 tab-cap 11/26/16 aspirin 81 mg chewable tablet 81 mg PO DAILY tab 12/07/16 atorvastatin 40 mg tablet 40 mg PO QHS #90 tab 12/07/16 fluoxetine 40 mg capsule 40 mg PO DAILY #90 cap 12/07/16 ibuprofen 800 mg tablet 800 mg PO Q8H tab 12/07/16 losartan 25 mg tablet 25 mg PO DAILY #90 tab-cap 12/07/16 omeprazole 20 mg capsule,delayed release 20 mg PO BID #180 tab-cap 12/07/16 promethazine 25 mg tablet 25 mg PO Q6H #120 tab-cap 12/07/16 warfarin 5 mg tablet 5 mg PO DAILY #60 tab-cap 12/07/16 olanzapine-fluoxetine 6 mg-25 mg capsule 1 cap PO QHS #90 cap 02/08/17 topiramate 100 mg tablet 100 mg PO BID #60 tab 03/16/17 Furosemide 40 mg PO BID 04/02/17 Potassium Chloride [K-Tab ER] 20 meq PO QDAY 04/02/17 - Patient Allergies Allergies/Adverse Reactions: Allergies 3 Allergy/AdvReac Type Severity Reaction Status Date / Time codeine [Codeine] Allergy Severe HIVES Verified 03/18/17 21:03 ketorolac tromethamine Allergy Severe HIVES Verified 03/18/17 21:03 [From Toradol] levofloxacin [From Levaquin] Allergy Severe Anaphylaxis Verified 03/18/17 21:03 ondansetron HCl Allergy Severe hives Verified 03/18/17 21:03 [From Zofran (as hydrochloride)] Penicillins Allergy Severe HIVES Verified 03/18/17 21:03 Sulfa (Sulfonamide Allergy Severe HIVES Verified 03/18/17 21:03 Antibiotics) gabapentin [From Neurontin] Allergy HIVES Verified 03/18/17 21:03 Past Medical History - heen HEENT History: Denies History Additional HEENT History: WEARS GLASSES Cardiovascular History: Hypertension, CHF, Previous ME, CAD, Pacemaker, Internal Defibrillator, Valvular Heart Disease, Other (please comment) Additional Cardiovasular History: HYPERTROPHIC OBSTRUCTIVE CARDIOMYOPATHY, ARTIFICIAL MITRAL VALVE, AICD Respiratory History: Other (please comment) Additional Respiratory History: CHRONIC TOBACCO ABUSE Gastrointestinal History: GERD Genitourinary History: Denies History Endocrine History: Denies History Musculoskeletal History: Denies History Prosthesis or Implant: No Neurological History: CVA, Migraines, Other (please comment) Additional Neurological History: PT STATES SHE HAD A STROKE IN 2010 WITH SPEECH , GAIT AND MEMORY DEFICITS Blood Disorders: Denies History Psychiatric History: Depression, Anxiety Disorders History of Sexually Transmitted Diseases: No Female Reproductive History: Denies History Obstetrical History: Denies History Cancer History: Denies History In Past Year Been Physically Harmed or Verbally Threatened: No History of MDRO: No History of Other Communicable Diseases: No Tobacco Use: Current Every Day Smoker Alcohol Use: Occasionally In the Past 12 Months, Have Used or Abuse Any Substance: None Previous Surgical History: No Type / Date of Surgery: PACER/DEFIB PLACEMENT. MITRAL VALVE REPAIR/ replace x2. HYSTER. BRITTNI. APPY. COLLAR BONE. CARDIAC STENTS Anesthesia Reactions: No Malignant Hyperthermia: No Significant Family History: COPD, Diabetes, Lung disease, Seizures Past Medical History Reviewed: Reviewed - No Changes ROS - Limitations ROS Limitations: No Limitations Constitution: REPORTS: Denies Symptoms Cardiovascular: REPORTS: Chest Pain Respiratory: REPORTS: Shortness Of Breath Neurological: REPORTS: Denies Neuro Symptoms Gastrointestinal: REPORTS: Denies GI Symptoms Endocrine: REPORTS: Denies Symptoms Musculoskeletal: REPORTS: Denies MS Symptoms Genitourinary: REPORTS: Denies Symptoms Eyes: REPORTS: Denies Symptoms ENT: REPORTS: Denies Symptoms Skin: REPORTS: Denies Skin Symptoms Lympathic: REPORTS: Denies Lympathic Symptoms Immunologic: POSITIVE: Denies Symptoms Psychiatric: POSITIVE: Denies Psych Symptoms Chest Pain PE - General Appearance General Appearance: REPORTS: Alert, Cooperative, No Acute Distress, No Evidence of Trauma - HEENT HEENT: POSITIVE: Head Inspection Nml, Eyes Inspection Nml, Ears Inspection Nml, Nose Inspection Nml, Oral/Dental Inspect. Nml, Pharynx Inspect. Nml, PERRL, EOMI - Neck Neck: REPORTS: Normal Inspection, No Carotid Bruit - Respiratory Respiratory: REPORTS: No Respiratory Distress, Breath Sounds Normal, Chest Non- Tender - Cardiovascular Cardiovascular: REPORTS: Regular Rate and Rhythm, Equal Pulses, Strong Pulses, No Gallop, No Friction Rub, No JVD, JVD Present (Mild), Murmur. DENIES: Heart Sounds Normal, No Murmur (3/6 systolic ejection murmur over the precordium with a mechanical heart valve click), Irregularly Irreg Rhythm, Tachycardia, Bradycardia, Occasional Extrasystoles, Frequent Extrasystoles, S3 Gallop, S4 Gallop, Friction Rub, Leann's Crunch Peripheral Pulses: Radial (R): 2+, Radial (L): 2+ Murmur: Systolic: Grade 3 (over the precordium) - Abdomen Abdomen: Soft: (All Quadrants), Normal Bowel Sounds: (All Quadrants), Denies Tenderness: (All Quadrants), No Splenomegaly: (All Quadrants), No Hepatomegaly: (All Quadrants), No Guarding: (All Quadrants), No Rebound: (All Quadrants), No Palpable Pulse: (All Quadrants), No Palpabale Mass: (All Quadrants), No Distention: (All Quadrants), No Rigidity: (All Quadrants) - Skin Skin: REPORTS: Intact, Normal For Race, Warm, Dry, No Rash - Extremities Extremity: Non-Tender: (All Extremities), Normal ROM: (All Extremities), Normal Inspection: (All Extremities) - Neurological / Psychological Neurological: POSITIVE: Affect 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 This area very tender on palpation. Chest Pain Progress - Results Reviewed by me Xrays/CTs/US Reviewed by me: Yes Discussed with Radiologist: No Radiology Findings: Cardiomegaly with some pulmonary congestion Lab Results Reviewed by Me: Yes (INR 1.29, BNP 6050, d-dimer 1.6, troponin 0.055 ) CBC and BMP: 04/01/17 21:40 04/01/17 21:40 EKG Interpreted/Reviewed By Me:: Yes (pacemaker rhythm) EKG Interpretation:: POSITIVE: Normal Rate, Abnormal EKG (Pacemaker rhythm). NEGATIVE: Normal Sinus Rhythm, Normal Intervals, Normal [place], Normal QRS, Normal ST/T - Patient's Progress Pain Medication Addressed: POSITIVE: Yes (Patient given morphine IV and Dilaudid IV with relief of chest pain) School/Work Release Addressed: POSITIVE: Not Applicable Re-Examine Time: 01:07 Re-Examine Comment: Patient resting comfortably Status: POSITIVE: Improved, Re-Examined Quality Measure Initiative: CP/AMI: POSITIVE: EKG, ASA - Consult Consult (If Yes, Name of Consulting MD & Time Called): Yes (Dr. Oconnor, hospitalist,[id number]) Consulting MD will see pt:: [place]ITIVE[place] [facility] [place] Counseled: POSITIVE: Patient, RE: Lab Results, RE: Radiology Results, RE: DX, RE : Need for F/U Patient Care Time - Estimated PCT Patient Care Time (In Minutes): 60 Vital Signs - Recent Vital Signs Vital Signs: Vital Signs (Last 8 hours) Temp Pulse Pulse Resp BP BP Pulse Ox 04/02/17 02:12 97.6 F 64 20 109/64 98 04/02/17 01:50 98 04/02/17 01:35 97.4 F 65 16 99/59 97 04/01/17 21:27 98.1 F 83 22 123/72 93 - VS Reviewed Vital Signs Reviewed: Yes Discharge Clinical Impression: Chest pain, H/O mitral valve replacement with mechanical valve, Congestive cardiac failure Discharge Disposition: Admit to Inpatient Condition: Fair Date Decision to Admit to Inpatient: 04/02/17 Time Decision to Admit to Inpatient: 01:00
--- NOTE | 2017-04-02 05:22 | EKG ---
[address] [address] Measurements Intervals [place] Rate: 66 P: 106 [place]: 100 QRS: -69 QRSD: 172 T: 92 QT: 536 QTc: 549 Interpretive Statements ELECTRONIC ATRIAL PACEMAKER ELECTRONIC VENTRICULAR PACEMAKER ABNORMAL RHYTHM ECG Compared to ECG 12/20/2016 19:41:33 No significant changes Electronically Signed On 04-02-17 11:11:05 MST by Dewayne Sweeney [email or web address]
--- NOTE | 2017-04-02 06:06 | EKG ---
[address] [address] Measurements Intervals [place] Rate: 65 P: 89 [place]: 95 QRS: -66 QRSD: 177 T: 102 QT: 540 QTc: 551 Interpretive Statements ELECTRONIC ATRIAL PACEMAKER ELECTRONIC VENTRICULAR PACEMAKER ABNORMAL RHYTHM ECG Compared to ECG 04/02/2017 02:56:15 No significant changes Electronically Signed On 04-02-17 11:10:51 MST by Dewayne Sweeney [email or web address]
[2017-04-02] MEDS ORDERED: FUROSEMIDE 10 MG/1 ML - 4 ML IVP SCH (07:00)
[2017-04-02 07:32] VITALS: BP 110/63; TEMP 97
[2017-04-02] MEDS ORDERED: ALBUTEROL SULFATE 2.5 MG/3 ML NEB ONE (07:42)
[2017-04-02] MEDS ORDERED: NITROGLYCERIN 0.4 MG SL TAB (BOTTLE OF 3) SL PRN (07:43)
[2017-04-02 07:49] VITALS: O2SAT 92
[2017-04-02 07:50] VITALS: RESP 20
[2017-04-02] MEDS ORDERED: Sodium Chloride 0.9% 250 ML IV ONE (08:11)
[2017-04-02] MEDS ORDERED: Nitroglycerin Drip 25,000 MCG/250 ML BOTTLE IV SCH (08:15)
--- NOTE | 2017-04-02 08:20 | PDOC ---
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 tach that required the placement of an AICD with pacemaker function dual-chamber. Patient comes in because of continued chest pain that started the wire 2 hours before coming in the ER also was diagnosed with the congestive heart failure and interstitial edema in her lungs patient was admitted and IV Lasix was started the Lovenox 1 mg/kg given she is on Coumadin but she is not therapeutic she's continued to have chest pain despite sublingual nitroglycerin, morphine and now on nitro drip if she did have back in July Pallavi scan which showed a reversible defect in the involving the septal wall because of her extensive cardiac history I discussed the case with the patient and her unstable angina with the borderline positive troponin patient will be transferred to [facility] accepted by Dr. bird cardiology blood pressures are marginal we will give her 1 g of IV Tylenol for her pain instead of the morphine I do not want to drop her blood pressure any more. Past Medical History Medical History: 1. Mitral valve replacement 2. 2. Coronary artery disease. 3. ablation in [place] (although I do not know for what). 4. Hypertrophic cardiomyopathy and mitral valve prolapse leading to the mitral valve replacements above. 5. Bipolar disorder with anxiety. 6. Migraine headaches , on Topamax for prophylaxis. Surgical History: 1. Coronary Stents. 2. mitral valve replacement 2. 3. PACER/DEFIB PLACEMENT. 4. Total abdominal hysterectomy and bilateral sequential oophorectomy. 5. Cholecystectomy. 6. Appendectomy. 7. Collar bone repair Pertinent Family History: No reports of medical issues in the family history. Past Social History: Smokes a half pack per day, drinks alcohol on occasion. Has 1 son, described as healthy, lives alone in [facility] apartments. Tobacco Use: Current Every Day Smoker In the Past 12 Months, Have Used or Abuse Any of the Following Substance: None Medication / Allergies Home Medications: Home Medications Medication Instructions Recorded Confirmed Type Vitamin E Mixed [Vitamin E] 400 unit PO BID tab 04/07/16 04/02/17 History Acetaminophen [Tylenol] 325 mg PO PRN 05/04/16 04/02/17 History warfarin 7.5 mg tablet 7.5 mg PO DAILY #30 tab-cap 11/26/16 04/02/17 Rx aspirin 81 mg chewable tablet 81 mg PO DAILY tab 12/07/16 04/02/17 History atorvastatin 40 mg tablet 40 mg PO QHS #90 tab 12/07/16 04/02/17 Rx fluoxetine 40 mg capsule 40 mg PO DAILY #90 cap 12/07/16 04/02/17 Rx ibuprofen 800 mg tablet 800 mg PO Q8H tab 12/07/16 04/02/17 History losartan 25 mg tablet 25 mg PO DAILY #90 tab-cap 12/07/16 04/02/17 Rx omeprazole 20 mg capsule,delayed 20 mg PO BID #180 tab-cap 12/07/16 04/02/17 Rx release promethazine 25 mg tablet 25 mg PO Q6H #120 tab-cap 12/07/16 04/02/17 Rx warfarin 5 mg tablet 5 mg PO DAILY #60 tab-cap 12/07/16 04/02/17 Rx olanzapine-fluoxetine 6 mg-25 mg 1 cap PO QHS #90 cap 02/08/17 04/02/17 Rx capsule topiramate 100 mg tablet 100 mg PO BID #60 tab 03/16/17 04/02/17 Rx Furosemide 40 mg PO BID 04/02/17 04/02/17 History Potassium Chloride [K-Tab ER] 20 meq PO QDAY 04/02/17 04/02/17 History Allergies/Adverse Reactions: Allergies 3 Allergy/AdvReac Type Severity Reaction Status Date / Time codeine [Codeine] Allergy Severe HIVES Verified 03/18/17 21:03 ketorolac tromethamine Allergy Severe HIVES Verified 03/18/17 21:03 [From Toradol] levofloxacin [From Levaquin] Allergy Severe Anaphylaxis Verified 03/18/17 21:03 ondansetron HCl Allergy Severe hives Verified 03/18/17 21:03 [From Zofran (as hydrochloride)] Penicillins Allergy Severe HIVES Verified 03/18/17 21:03 Sulfa (Sulfonamide Allergy Severe HIVES Verified 03/18/17 21:03 Antibiotics) gabapentin [From Neurontin] Allergy HIVES Verified 03/18/17 21:03 Review of Systems - Review of Systems All Systems: Reviewed & No Additional Complaints Except as Stated - Respiratory Respiratory: REPORTS: Cough, Dyspnea At Rest, Wheezing - Cardiovascular Cardiovascular: REPORTS: Chest Pain - Gastrointestinal Gastrointestinal / Abdominal: DENIES: Negative System Review, Nausea, Vomiting, Diarrhea, Constipation, Abdominal Pain, Bloody Stool, Poor Appetite, Heartburn, Regurgitation, Bloating, Lactose Intolerance, Melena, Bright Red Blood per Rectum, Other, See HPI Exam - Vitals Vital Signs: Vital Signs Temperature 97 F Temperature Source Temporal Artery Scan Pulse Rate [Apical] 70 Pulse Rate [Pulse Oximeter] 65 Pulse Rate 70 Respiratory Rate 20 Blood Pressure [Left Arm] 110/63 Blood Pressure 99/59 Pulse Ox 92 Oxygen Flow Rate 3 Oxygen Delivery Method Nasal Cannula Height 5 ft 5 in Weight 155 lb 3.2 oz - General General Appearance: Mild Distress - Head Head Exam: Normal Inspection, Normocephalic, Atraumatic - Eye Eye Exam: POSITIVE: Normal Appearance, PERRL, EOMI, No Scleral Icterus - Respiratory Respiratory Exam: POSITIVE: Decreased Breath Sounds, Rales, Crackles, Wheezes - Cardiovascular Cardiovascular Exam: POSITIVE: RRR - GI/Abdominal GI/Abdominal Exam: POSITIVE: Normal Bowel Sounds, Non Tender, Non Distended, Soft, No Masses, No Hepatomegaly, No Splenomegaly, No Organomegaly - Rectal Rectal Exam: POSITIVE: Deferred - External Exam: POSITIVE: Deferred Exam: POSITIVE: Deferred - Extremities Extremities Exam: POSITIVE: No Clubbing Present, No Edema Present, No Cyanosis Present - Neurological Neurological Exam: POSITIVE: Alert, Oriented x 3, No Facial Droop, Speech Intact / Clear Results - Labs CBC and BMP: 04/01/17 21:40 04/01/17 21:40 Assessment and Plan - Patient Problems (1) Chest pain Current Visit: Yes Status: Acute Code(s): R07.9 - Chest pain, unspecified (2) Congestive cardiac failure Current Visit: Yes Status: Acute Code(s): I50.9 - Heart failure, unspecified (3) H/O mitral valve replacement with mechanical valve Current Visit: Yes Status: Chronic Code(s): Z95.2 - Presence of prosthetic heart valve (4) Angina at rest Current Visit: No Status: Chronic Code(s): I20.8 - Other forms of angina pectoris (5) Hypertrophic cardiomyopathy Current Visit: No Status: Chronic Onset Date: 10/14/15 Code(s): I42.2 - Other hypertrophic cardiomyopathy (6) senior living current use of anticoagulant Current Visit: No Status: Chronic Onset Date: 02/02/16 Code(s): Z79.01 - senior living (current) use of anticoagulants (7) Presence of prosthetic heart valve Current Visit: No Status: Chronic Onset Date: 10/14/15 Code(s): Z95.2 - Presence of prosthetic heart valve (8) Status post myocardial infarction Current Visit: No Status: Chronic Onset Date: 10/14/15 Code(s): I25.2 - Old myocardial infarction (9) Stented coronary artery Current Visit: No Status: Chronic Onset Date: 10/14/15 Code(s): Z95.5 - Presence of coronary angioplasty implant and graft (10) Tobacco dependence Current Visit: No Status: Chronic Onset Date: 01/20/16 Code(s): F17.200 - Nicotine dependence, unspecified, uncomplicated
[2017-04-02] MEDS ORDERED: Acetaminophen 1000mg Inj 1,000 MG/100 ML VIAL IV PRN (08:23)
--- NOTE | 2017-04-02 08:39 | DCSUMMARY ---
Hospitalization Summary Hospital Course: Please see H&P same day admit discharge Exam - Vitals Vital Signs: Vital Signs Temperature 97 F Temperature Source Temporal Artery Scan Pulse Rate [Apical] 70 Pulse Rate [Pulse Oximeter] 65 Pulse Rate 70 Respiratory Rate 20 Blood Pressure [Left Arm] 110/63 Blood Pressure 99/59 Pulse Ox 92 Oxygen Flow Rate 3 Oxygen Delivery Method Nasal Cannula Height 5 ft 5 in Weight 155 lb 3.2 oz Patient Problems - Patient Problem List (1) Chest pain Current Visit: Yes Status: Acute Code(s): R07.9 - Chest pain, unspecified Category: Medical (2) Congestive cardiac failure Current Visit: Yes Status: Acute Code(s): I50.9 - Heart failure, unspecified Category: Medical (3) H/O mitral valve replacement with mechanical valve Current Visit: Yes Status: Chronic Code(s): Z95.2 - Presence of prosthetic heart valve Category: Medical (4) Angina at rest Current Visit: No Status: Chronic Code(s): I20.8 - Other forms of angina pectoris Category: Medical (5) Hypertrophic cardiomyopathy Current Visit: No Status: Chronic Onset Date: 10/14/15 Code(s): I42.2 - Other hypertrophic cardiomyopathy Category: Medical (6) [facility] current use of anticoagulant Current Visit: No Status: Chronic Onset Date: 02/02/16 Code(s): Z79.01 - roasterman (current) use of anticoagulants Category: Medical (7) Presence of prosthetic heart valve Current Visit: No Status: Chronic Onset Date: 10/14/15 Code(s): Z95.2 - Presence of prosthetic heart valve Category: Medical (8) Status post myocardial infarction Current Visit: No Status: Chronic Onset Date: 10/14/15 Code(s): I25.2 - Old myocardial infarction Category: Medical (9) Stented coronary artery Current Visit: No Status: Chronic Onset Date: 10/14/15 Code(s): Z95.5 - Presence of coronary angioplasty implant and graft Category: Medical (10) Tobacco dependence Current Visit: No Status: Chronic Onset Date: 01/20/16 Code(s): F17.200 - Nicotine dependence, unspecified, uncomplicated Category: Medical
[2017-04-02] MEDS ORDERED: LOSARTAN 25 MG TABLET PO SCH (09:00)
[2017-04-02] MEDS ORDERED: ASPIRIN 81 MG (BABY) CHEWABLE TABLET PO SCH (09:00)
[2017-04-02] MEDS ORDERED: Potassium Chloride Tab 10 MEQ TAB PO SCH (09:00)
[2017-04-02] MEDS ORDERED: Topiramate Tab 50 MG TAB PO SCH (09:00)
[2017-04-02] MEDS ORDERED: Vitamin E Cap 400 IU CAP PO SCH (09:00)
[2017-04-02] MEDS ORDERED: FLUoxetine 20 MG CAPSULE PO SCH (09:00)
[2017-04-02] MEDS ORDERED: Warfarin 5 MG TAB PO SCH (19:00)
[2017-04-02] MEDS ORDERED: FLUOXETINE HCL PO SCH (21:00)
[2017-04-02] MEDS ORDERED: OLANZAPINE PO SCH (21:00)
[2017-04-02] MEDS ORDERED: ATORVASTATIN 40 MG TABLET PO SCH (21:00)
[2017-04-05] MEDS ORDERED: WARFARIN SODIUM 7.5 MG PO SCH (19:00)
== END 2017-04-02 09:00 | disposition short-term general hospital (02) | DRG 311 ==
LOC: ER 21:05 → MED/SURG 04-02 01:18
PROVIDERS: ADMIT Internal Medicine; ATTEND Internal Medicine

== ENCOUNTER 2017-10-12 17:19 | Observation (INO) ==
[2017-10-12] MEDS ORDERED: ONDANSETRON 4 MG/2 ML VIAL IVP ONE (17:28)
[2017-10-12] MEDS ORDERED: Sodium Chloride 0.9% 1,000 ML PRIMARY IV ONE (17:28)
[2017-10-12] MEDS ORDERED: MORPHINE SULFATE 2 MG/1 ML IVP ONE ×2 (17:28→18:25)
--- NOTE | 2017-10-12 17:31 | EKG ---
[address] [address] Measurements Intervals [place] Rate: 73 P: 127 [place]: 100 QRS: -75 QRSD: 161 T: 88 QT: 493 QTc: 518 Interpretive Statements ELECTRONIC ATRIAL PACEMAKER ELECTRONIC VENTRICULAR PACEMAKER ABNORMAL RHYTHM ECG INTERPRETATION BASED ON A DEFAULT AGE OF 40 YEARS Compared to ECG 09/20/2017 15:03:31 No significant changes Electronically Signed On 10-13-17 15:06:23 MDT by Drake Valdes MD [email or web address]
[2017-10-12] MEDS ORDERED: ASPIRIN 81 MG (BABY) CHEWABLE TABLET PO ONE ×2 (17:53→17:59)
[2017-10-12 18:06] LABS: Hemoglobin [HGB] 9.6 g/dL (12.0-16.0); RED BLOOD COUNT 4.52 10^6/uL (4.20-5.40)
[2017-10-12 18:07] LABS: Hematocrit [HCT] 32.1 % (37.0-47.0); MEAN CORPUSCULAR VOLUME 71 FL (81-99)
[2017-10-12 18:08] LABS: MEAN CORPUSCULAR HEMOGLOBIN 21.3 PG (27-31); MEAN PLATELET VOLUME 8.3 FL (7.4-12.2)
[2017-10-12 18:09] LABS: BASOPHILS # (AUTO) 0.01 10*3/UL; BASOPHILS % (AUTO) 0.2 % (0-1); EOSINOPHILS # (AUTO) 0.09 10*3/UL; EOSINOPHILS % (AUTO) 1.2 % (0-8); LYMPHOCYTES # (AUTO) 0.97 10*3/uL; MONOCYTES # (AUTO) 0.62 10*3/UL (0.3-0.8); MONOCYTES % (AUTO) 8.5 % (5-15); NEUTROPHILS # (AUTO) 5.62 10*3/UL; NEUTROPHILS % (AUTO) 76.9 % (50-80); PLATELET MORPHOLOGY COMMENT NORMAL MORPHOLOGY (NORM); RBC MORPHOLOGY COMMENT SEE COMMENTS (NORM); WBC MORPHOLOGY COMMENT NORMAL MORPHOLOGY (NORM)
--- NOTE | 2017-10-12 19:34 | DI ---
AP CHEST X-RAY, 10/12/2017 5:28 PM : Clinical History: I50.9 Heart failure, unspecified Previous Exam: 09/28/2017. The patient has a combined dual-chamber pacemaker and internal defibrillator and the leads are in the appropriate position. The patient is status post CABG and mitral valve replacement. There is cardiom egaly with CHF, similar to the previous exam: To differences in radiographic technique in positioning . There are loculated pleural effusions in the inferior aspect of the right major fissure and along t he right apex and superior portion of the right lateral chest wall. On the prior exam, there was flui d along the left lateral chest wall and this probably has migrated posteriorly. There is no pneumonia noted. Readin. Cardiomegaly with CHF, similar to the last exam. 2. There are loculated fluid collections toward the right apex and the inferior aspect of the right major fissure. The fluid that was present laterally along the left chest wall may have migrated sligh tly posteriorly.
[2017-10-12] MEDS ORDERED: DOCUSATE 100 MG CAPSULE PO PRN (19:56)
[2017-10-12] MEDS ORDERED: ONDANSETRON 4 MG/2 ML VIAL IVP PRN (19:56)
[2017-10-12] MEDS ORDERED: Promethazine Tab 25 MG TAB PO PRN (19:56)
[2017-10-12] MEDS ORDERED: LIDOCAINE W/ SODIUM BICARB 0.5 ML SYR SUBD PRN (19:56)
[2017-10-12] MEDS ORDERED: ZALEPLON 5 MG PO PRN (19:56)
[2017-10-12] MEDS ORDERED: ACETAMINOPHEN 325 MG TABLET PO PRN (19:56)
[2017-10-12] MEDS ORDERED: CALCIUM CARBONATE 500 MG (TUMS) CHEWABLE TABLET PO PRN (19:56)
[2017-10-12] MEDS ORDERED: HYDROcodone-APAP 5 MG -325 MG TABLET PO PRN (19:56)
[2017-10-12] MEDS ORDERED: FLUOXETINE HCL PO SCH (21:00)
[2017-10-12] MEDS ORDERED: ATORVASTATIN 40 MG TABLET PO SCH (21:00)
[2017-10-12] MEDS ORDERED: OLANZAPINE PO SCH (21:00)
[2017-10-12] MEDS ORDERED: Warfarin 5 MG TAB PO SCH (21:00)
--- NOTE | 2017-10-12 21:12 | PDOC ---
HPI - History of Present Illness Date of Service: 10/12/17 Time of Service: 21:06 Chief Complaint: Chest pain History of Present Illness: This very pleasant 51-year-old female with coronary artery disease, history of mitral valve replacement, hypertrophic cardiomyopathy, recurrent chest pain episodes, anxiety, GERD, recent pneumonia with what appears to be a loculated or scarred tissue now, who presents after sudden onset of sharp chest pain in the left substernal region with radiation into the left arm. The patient thought she was having heart attack. 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 The patient did not have any shortness of breath. She's had some diarrhea but no nausea or vomiting. The patient has nitroglycerin but did not try it. She came into the emergency room and she stated morphine seemed to help her pain. There've been several reports in my review of the medical record that are concerned that the patient may have some pain seeking behavior. She is on fluoxetine for depression and anxiety, but states that she is still quite anxious. She does not recall any therapy with benzodiazepines. She states she recently saw her senior product engineer who had recommended a pain specialist help her with her chest pains and apparently chronic migraine headaches. No diaphoresis and no sweating. She continues to smoke up to 3 cigarettes per day. No family history of heart disease and no diabetes. She is on cholesterol medication. She states that she was placed on increased dose of Lasix when she last saw her senior product engineer a week ago and she's noticed that her breathing has been a little bit better. Past Medical History Medical History: 1. Mitral valve replacement 2. 2. Coronary artery disease. 3. ablation in [place] for hypertrophic cardiomyopathy female ablation. 4. Hypertrophic cardiomyopathy and mitral valve prolapse leading to the mitral valve replacements above. 5. Bipolar disorder with anxiety. 6. Migraine headaches, on Topamax for prophylaxis. 7. Recent respiratory failure secondary to pneumonia treated in [place], [place], records not available for review. Surgical History: 1. Coronary Stents. 2. mitral valve replacement 2. 3. PACER/DEFIB PLACEMENT. 4. Total abdominal hysterectomy and bilateral sequential oophorectomy. 5. Cholecystectomy. 6. Appendectomy. 7. Collar bone repair Pertinent Family History: No reports of medical issues in the family history. No history of heart disease. She states she is only one with heart disease in her family. Past Social History: Smokes a half pack per day although she states that she has cut down to 3 cigarettes per day, drinks alcohol on occasion. Has 1 son, described as healthy, lives alone in [facility] apartments. Tobacco Use: Current Every Day Smoker In the Past 12 Months, Have Used or Abuse Any of the Following Substance: None Alcohol Use: Rarely Medication / Allergies Home Medications: Home Medications 3 Medication Instructions Recorded Confirmed Type Vitamin E Mixed [Vitamin E] 400 unit PO BID tab 04/07/16 10/12/17 History aspirin 81 mg chewable tablet 81 mg PO DAILY tab 12/07/16 10/12/17 History olanzapine-fluoxetine 6 mg-25 mg 1 cap PO QHS #90 cap 02/08/17 10/12/17 Rx capsule topiramate 100 mg tablet 100 mg PO BID #60 tab 03/16/17 10/12/17 Rx Potassium Chloride [K-Tab ER] 20 meq PO QDAY 04/02/17 10/12/17 History fluoxetine 40 mg capsule 40 mg PO DAILY #90 cap 04/12/17 10/12/17 Rx furosemide 40 mg tablet 40 mg PO BID #90 tab 04/13/17 10/12/17 Rx Warfarin Sodium 10 mg PO DAILY 04/24/17 10/12/17 History hydrocodone 5 mg-acetaminophen 325 1 tab PO Q6H PRN #30 tab 07/06/17 10/12/17 Rx mg tablet losartan 25 mg tablet 25 mg PO QDAY #90 tab 07/06/17 10/12/17 Rx metoprolol tartrate 25 mg tablet 12.5 mg PO BID #90 tab 07/06/17 10/12/17 Rx omeprazole 20 mg capsule,delayed 20 mg PO QDAY #90 tab-cap 07/06/17 10/12/17 Rx release promethazine 25 mg tablet 25 mg PO Q6H PRN tab-cap 07/06/17 10/12/17 History isosorbide mononitrate ER 30 mg 30 mg PO QAM #1 tab 07/19/17 10/12/17 Rx tablet,extended release 24 hr simethicone 166 mg capsule 166 mg PO TID 08/10/17 10/12/17 History zaleplon 5 mg capsule 5 mg PO .HS PRN #30 cap 08/10/17 10/12/17 Rx warfarin 5 mg tablet 5 mg PO DAILY #60 tab-cap 09/06/17 10/12/17 Rx atorvastatin 40 mg tablet 40 mg PO QHS #90 tab 10/05/17 10/12/17 Rx Allergies/Adverse Reactions: Allergies 3 Allergy/AdvReac Type Severity Reaction Status Date / Time levofloxacin Allergy Severe Anaphylaxis Verified 10/12/17 17:25 gabapentin AdvReac Unknown NOT Verified 10/12/17 17:25 APPLICABLE Sulfa (Sulfonamide AdvReac Unknown Anaphylaxis Verified 10/12/17 17:25 Antibiotics) codeine AdvReac HIVES Verified 10/12/17 17:25 ketroalac tromethamine AdvReac Unknown HIVES Uncoded 10/12/17 17:25 Review of Systems - Review of Systems All Systems: Reviewed & No Additional Complaints Except as Stated (I did a 12 point review systems and it was negative other than that discussed in history present illness above and the exceptions are noted below.) - Respiratory Respiratory: REPORTS: Negative System Review - Gastrointestinal Gastrointestinal / Abdominal: REPORTS: Diarrhea - Neurological Neurologic: REPORTS: Headache (Chronic migraine headaches) Exam - Vitals Vital Signs: Vital Signs Temperature 99.2 F Temperature Source Temporal Artery Scan Pulse Rate [Pulse Oximeter 73 Right] Pulse Rate 72 Respiratory Rate 17 Blood Pressure [Right Arm] 99/78 Blood Pressure 106/48 Pulse Ox 92 Oxygen Flow Rate 2 Oxygen Delivery Method Nasal Cannula Height 5 ft 5 in Weight 148 lb - General General Appearance: No Acute Distress, Cooperative Additional General Exam Details: Anxious. Appears older than stated age. - Head Head Exam: Normal Inspection, Normocephalic, Atraumatic - Eye Eye Exam: POSITIVE: No Scleral Icterus - ENT ENT Exam: POSITIVE: Mucous Membranes Moist - Neck Neck Exam: No Lymphadenopathy, No Thyromegaly, JVP is not Raised - Respiratory Respiratory Exam: POSITIVE: Breathing Non Labored, Decreased Breath Sounds - Cardiovascular Cardiovascular Exam: POSITIVE: RRR, No Gallops, No Rubs, Systolic Murmur, No JVD Additional Cardiovascular Details: Has a click on exam from mitral valve. Chest pain is reproducible on exam. - GI/Abdominal GI/Abdominal Exam: POSITIVE: Normal Bowel Sounds, Non Tender, Non Distended, Soft - Rectal Rectal Exam: POSITIVE: Deferred - External Exam: POSITIVE: Deferred Exam: POSITIVE: Deferred - Extremities Extremities Exam: POSITIVE: No Clubbing Present, No Edema Present, No Cyanosis Present - Back Back Exam: POSITIVE: No CVA Tenderness - Neurological Neurological Exam: POSITIVE: Alert, Oriented x 3, No Facial Droop, Speech Intact / Clear, Moves All Extremities Equally - Psychiatric Psychiatric Exam: POSITIVE: Anxious - Integumentary Integumentary Exam: POSITIVE: Normal Color, Warm, Dry, Intact Results - Labs CBC and BMP: 10/12/17 17:42 10/12/17 17:42 Additional Lab Results: Laboratory Results 10/12/17 10/12/17 10/12/17 Range/Units 17:42 17:42 17:42 WBC 7.3 (4.8-10.8) 10^3/uL RBC 4.52 (4.20-5.40) 10^6/uL Hgb 9.6 L (12.0-16.0) g/dL Hct 32.1 L (37.0-47.0) % MCV 71 L (81-99) FL MCH 21.3 L (27-31) PG MCHC 30.0 L (33-37) g/dL RDW Coeff of Hussain 19.2 H (11.5-14.5) % Plt Count 360 H (140-350) 10*3/uL MPV 8.3 (7.4-12.2) FL Neut % (Auto) 76.9 (50-80) % Lymph % (Auto) 13.2 (10-50) % [place] % (Auto) 8.5 (5-15) % Eos % (Auto) 1.2 (0-8) % Baso % (Auto) 0.2 (0-1) % Neut # (Auto) 5.62 10*3/UL Lymph # (Auto) 0.97 10*3/uL [place] # (Auto) 0.62 (0.3-0.8) 10*3/UL Eos # (Auto) 0.09 10*3/UL Baso # (Auto) 0.01 10*3/UL WBC Morphology Comment Normal morphology (NORM) Plt Morphology Comment Normal morphology (NORM) RBC Morph Comment See comments (NORM) PT 28.2 H (9.7-11.4) secs INR 2.71 (0.00-5.90) N/A D-Dimer 3.63 H (0.00-0.59) mg/L Sodium 142 (135-145) meq/L Potassium 3.8 (3.8-5.2) meq/L Chloride 104 (98-112) meq/L Carbon Dioxide 23 (23-33) meq/L Anion Gap 15 (5-20) BUN 21 (7-22) mg/dL Creatinine 1.0 (0.50-1.20) mg/dL Estimated GFR 59 (>60 ml/min/1.73m(2)) BUN/Creatinine Ratio 21.00 H (6-20) Glucose 130 H (78-110) mg/dL Calculated Osmolality 298.0 H (267-292) mOsm/kg Calcium 8.9 (8.7-10.7) mg/dL Magnesium 1.6 (1.6-2.4) mg/dL Total Bilirubin 0.7 (0.3-1.2) mg/dL AST 23 (8-39) IU/L ALT 34 (9-52) IU/L Alkaline Phosphatase 173 H (38-126) IU/L CK-MB (CK-2) (0.00-5.00) NG/ML Troponin I (< 0.040) ng/mL C-Reactive Protein 0.5 (0.0-0.9) mg/dL NT-Pro-B Natriuret Pep 9650 H (0-125) PG/ML Total Protein 7.2 (6.1-8.0) g/dL Albumin 4.0 (3.5-4.8) g/dL Globulin 3.2 (2.50-4.10) g/dL Albumin/Globulin Ratio 1.20 L (1.3-2.0) mg/g Amylase 52 (30-110) U/L Lipase 99 (23-300) IU/L 10/12/17 Range/Units 17:42 WBC (4.8-10.8) 10^3/uL RBC (4.20-5.40) 10^6/uL Hgb (12.0-16.0) g/dL Hct (37.0-47.0) % MCV (81-99) FL MCH (27-31) PG MCHC (33-37) g/dL RDW Coeff of Hussain (11.5-14.5) % Plt Count (140-350) 10*3/uL MPV (7.4-12.2) FL Neut % (Auto) (50-80) % Lymph % (Auto) (10-50) % [place] % (Auto) (5-15) % Eos % (Auto) (0-8) % Baso % (Auto) (0-1) % Neut # (Auto) 10*3/UL Lymph # (Auto) 10*3/uL [place] # (Auto) (0.3-0.8) 10*3/UL Eos # (Auto) 10*3/UL Baso # (Auto) 10*3/UL WBC Morphology Comment (NORM) Plt Morphology Comment (NORM) RBC Morph Comment (NORM) PT (9.7-11.4) secs INR (0.00-5.90) N/A D-Dimer (0.00-0.59) mg/L Sodium (135-145) meq/L Potassium (3.8-5.2) meq/L Chloride (98-112) meq/L Carbon Dioxide (23-33) meq/L Anion Gap (5-20) BUN (7-22) mg/dL Creatinine (0.50-1.20) mg/dL Estimated GFR (>60 ml/min/1.73m(2)) BUN/Creatinine Ratio (6-20) Glucose (78-110) mg/dL Calculated Osmolality (267-292) mOsm/kg Calcium (8.7-10.7) mg/dL Magnesium (1.6-2.4) mg/dL Total Bilirubin (0.3-1.2) mg/dL AST (8-39) IU/L ALT (9-52) IU/L Alkaline Phosphatase (38-126) IU/L CK-MB (CK-2) 2.04 (0.00-5.00) NG/ML Troponin I 0.034 (< 0.040) ng/mL C-Reactive Protein (0.0-0.9) mg/dL NT-Pro-B Natriuret Pep (0-125) PG/ML Total Protein (6.1-8.0) g/dL Albumin (3.5-4.8) g/dL Globulin (2.50-4.10) g/dL Albumin/Globulin Ratio (1.3-2.0) mg/g Amylase (30-110) U/L Lipase (23-300) IU/L - EKG Data -: EKG Interpreted by Me - EKG Data When Compared to Previous EKG(s) There Are: No Significant Change EKG Interpretation: Other (Paced rhythm) Assessment and Plan - Patient Problems (1) Chest pain Current Visit: No Status: Acute Code(s): R07.9 - Chest pain, unspecified (2) Chronic stable angina Current Visit: Yes Status: Acute Code(s): I20.8 - Other forms of angina pectoris (3) Tobacco dependence Current Visit: Yes Status: Chronic Onset Date: 01/20/16 Code(s): F17.200 - Nicotine dependence, unspecified, uncomplicated (4) Presence of combination internal cardiac defibrillator (ICD) and pacemaker Current Visit: Yes Status: Chronic Onset Date: 10/14/15 Code(s): Z95.810 - Presence of automatic (implantable) cardiac defibrillator (5) Mixed hyperlipidemia Current Visit: Yes Status: Chronic Onset Date: 01/20/16 Code(s): E78.2 - Mixed hyperlipidemia (6) Migraine, unspecified, not intractable, without status migrainosus Current Visit: Yes Status: Chronic Onset Date: 10/14/15 Code(s): G43.909 - Migraine, unspecified, not intractable, without status migrainosus Qualifiers: Migraine type: unspecified Qualified Code(s): G43.909 - Migraine, unspecified, not intractable, without status migrainosus (7) long-term current use of anticoagulant Current Visit: Yes Status: Chronic Onset Date: 02/02/16 Code(s): Z79.01 - terminal gauger supervisor (current) use of anticoagulants (8) Hypertrophic cardiomyopathy Current Visit: Yes Status: Chronic Onset Date: 10/14/15 Code(s): I42.2 - Other hypertrophic cardiomyopathy (9) Coronary artery disease Current Visit: Yes Status: Chronic Code(s): I25.10 - Atherosclerotic heart disease of [place] coronary artery without angina pectoris Qualifiers: Coronary Disease-Associated Artery/Lesion type: [place] artery [place] vs. transplanted heart: [place] heart Associated angina: angina presence unspecified Qualified Code(s): I25.10 - Atherosclerotic heart disease of [place] coronary artery without angina pectoris (10) Anxiety Current Visit: Yes Status: Acute Code(s): F41.9 - Anxiety disorder, unspecified (11) H/O mitral valve replacement with mechanical valve Current Visit: Yes Status: Acute Code(s): Z95.2 - Presence of prosthetic heart valve - Assessment / Plan Additional Assessment/Plan Details: Plan: 1. Do serial enzymes and EKG will not be very helpful given the paced rhythm. 2. Aspirin/beta lam/Lovenox Lovenox will be at a prophylactic dose 3. The patient had a small reversible defect on stress test in 2017. I think given the complexities of this situation and her recurrent chronic stable angina , complications from anxiety, history of pericarditis, GERD, and other issues, I would like to discuss with her senior product engineer prior to any stress test and it may be best to stress this patient in [place] with her cardiology group. 4. Proton pump inhibitor 5. Nitroglycerin when necessary for chest pain 6. Morphine if necessary via IV 7. Oxygen if necessary 8. I'm going to start Ranexa. We'll have to get this on order as it is not on formulary. 9. Minimum put the patient on Ativan tonight and see if that helps with some anxiety. The description of sharp chest pain is somewhat reassuring as less than 1% of heart attacks present with sharp chest pain. The low-grade temperature 99.2 bothers me to some degree. She had a history of a recent pneumonia with respiratory failure that was treated in [place], [place], and her most recent CT scan shows multiple loculations as does her chest x-ray tonight. The status of these loculations is difficult to interpret with a temperature 99.2. We'll go ahead and get blood cultures and a urinalysis and repeat his CT scan without contrast as she's had 3 prior CTAs done this year which were all negative for pulmonary emboli. Really more interested in what may be going on in terms of the fluid content in these loculations. It may be that the patient would benefit from evaluation with her senior product engineer for these loculations and in addition possibly surgeon that could consider thoracic approach for decortication if necessary. That being said, I think that's a likely source of potential infection should the patient developed worsening fevers. If she does, then I think we'll need to transfer her to a higher level of care. Patient is DO NOT RESUSCITATE. We discussed this in depth. She was on a ventilator in [place] made the decision during that hospital stay that she never wants to go through that again.
[2017-10-12] MEDS ORDERED: NITROGLYCERIN 0.4 MG SL TAB (BOTTLE OF 3) SL PRN (21:17)
[2017-10-12] MEDS ORDERED: LORazepam 1 MG TABLET PO ONE (21:26)
[2017-10-12] MEDS ORDERED: Magnesium Sulfate 2gm (Premix) 2 GM/50 ML BAG IV ONE (21:28)
[2017-10-12] MEDS: RANEXA 500 MG PO SCH (21:41)
[2017-10-12] MEDS: MORPHINE SULFATE 2 MG/1 ML IVP PRN (21:47)
[2017-10-12] MEDS: Topiramate Tab 50 MG TAB PO SCH (21:48)
[2017-10-12] MEDS: FUROSEMIDE 40 MG TABLET PO SCH (21:48)
[2017-10-12] MEDS: Metoprolol TARTRATE Tab 25 MG TAB PO SCH (21:48)
[2017-10-12] MEDS: OMEPRAZOLE 20 MG CAPSULE PO SCH (21:48)
[2017-10-12] MEDS: SIMETHICONE 80 MG TABLET PO SCH (21:48)
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
--- NOTE | 2017-10-12 23:33 | DI ---
PROCEDURE: CT CHEST Without Contrast HISTORY: 51-year-old female with chest pain COMPARISON: CTA chest 09/07/[address] abdomen and pelvis 07/21/2016 TECHNIQUE: CT imaging was obtained through the chest. Coronal and sagittal reformations were performed. FINDINGS: Evaluation is limited by motion degradation and lack of contrast. Soft tissues: Visualized portions of the thyroid gland are unremarkable. There are multiple small and abnormally enlarged mediastinal lymph nodes. For example, there is an abnormally enlarged 1.7 centimeter short axis pretracheal lymph node series 2 image 29. There multiple abnormally enlarged peridiaphragmatic lymph nodes measuring approximately 8 millimeters in short axis, for example series 2 images 72-75, overall similar to prior. No significant axillary lymphadenopathy. Evaluation for hilar lymphadenopathy is limited without contrast. The esophagus is unremarkable. There are postoperative changes of mitral valve repair. A dual-lead pacemaker is identified within the left anterior subcutaneous tissues. One lead is identified at the right atrium and the other is identified at the right ventricle. Multichamber cardiomegaly is redemonstrated. There are calcifications of the coronary arteries, thoracic aorta, and arch vessels. Dilated central pulmonary arteries are again identified and can be seen in pulmonary arterial hypertension. Limited evaluation of the upper abdomen demonstrates postoperative changes of cholecystectomy. There is a small ascites. Atherosclerotic calcifications are again identified. Lungs: There is evidence of pulmonary edema with bilateral interlobular septal thickening. There is a 6 millimeter right lower lobe solid- appearing noncalcified pulmonary nodule, series 2 image 70. Followup per Fleischner Society guidelines. There are bilateral loculated pleural effusions, similar on the left and mildly increased on the right as compared to prior. The airway is patent. Bones: There are postoperative changes of median sternotomy. IMPRESSION: 1. There is evidence of pulmonary edema with bilateral interlobular septal thickening. 2. There is a 6 millimeter right lower lobe solid-appearing noncalcified pulmonary nodule. Followup per Fleischner Society guidelines. 3. Multichamber cardiomegaly is redemonstrated. 4. Dilated central pulmonary arteries are again identified and can be seen in pulmonary arterial hypertension. 5. There are bilateral loculated pleural effusions, similar on the left and mildly increased on the right as compared to prior. 6. Mediastinal and peridiaphragmatic lymphadenopathy, similar to prior. Findings may be due to malignancy or infection/inflammation. 7. Small upper abdominal ascites. 8. Other findings as detailed above.
[2017-10-13] MEDS: MORPHINE SULFATE 2 MG/1 ML IVP PRN ×4 (03:38→10:30)
[2017-10-13] MEDS ORDERED: LORazepam 1 MG TABLET PO ONE (04:58)
[2017-10-13 05:22] LABS: BASOPHILS # (AUTO) 0.02 10*3/UL; BASOPHILS % (AUTO) 0.3 % (0-1); EOSINOPHILS # (AUTO) 0.07 10*3/UL; Hematocrit [HCT] 34.7 % (37.0-47.0); Hemoglobin [HGB] 9.7 g/dL (12.0-16.0); LYMPHOCYTES # (AUTO) 0.86 10*3/uL; MEAN CORPUSCULAR VOLUME 74.9 FL (81-99); MEAN PLATELET VOLUME 9.8 FL (7.4-12.2); MONOCYTES # (AUTO) 0.98 10*3/UL (0.3-0.8); MONOCYTES % (AUTO) 14.1 % (5-15); NEUTROPHILS % (AUTO) 72.1 % (50-80); RED BLOOD COUNT 4.63 10^6/uL (4.20-5.40)
[2017-10-13 05:28] LABS: BUN/CREATININE RATIO 20.9 (6-20)
[2017-10-13 06:10] LABS: PLATELET MORPHOLOGY COMMENT NORMAL MORPHOLOGY (NORM); WBC MORPHOLOGY COMMENT NORMAL MORPHOLOGY (NORM)
[2017-10-13 06:11] LABS: RBC MORPHOLOGY COMMENT SEE COMMENTS (NORM)
[2017-10-13] MEDS: SIMETHICONE 80 MG TABLET PO SCH (08:17)
[2017-10-13] MEDS: Metoprolol TARTRATE Tab 25 MG TAB PO SCH (08:18)
[2017-10-13] MEDS: Topiramate Tab 50 MG TAB PO SCH (08:19)
[2017-10-13] MEDS: OMEPRAZOLE 20 MG CAPSULE PO SCH (08:19)
[2017-10-13] MEDS: FUROSEMIDE 40 MG TABLET PO SCH (08:19)
[2017-10-13 08:48] VITALS: BP 117/78; RESP 30; TEMP 97.9; O2SAT 94
[2017-10-13] MEDS ORDERED: LOSARTAN 25 MG TABLET PO SCH (09:00)
[2017-10-13] MEDS ORDERED: ASPIRIN 81 MG (BABY) CHEWABLE TABLET PO SCH (09:00)
[2017-10-13] MEDS ORDERED: ISOSORBIDE MONONITRATE 30 MG SR 24H TABLET PO SCH (09:00)
[2017-10-13] MEDS ORDERED: FLUoxetine 20 MG CAPSULE PO SCH (09:00)
[2017-10-13] MEDS ORDERED: POTASSIUM CHLORIDE 20 MEQ TAB PO SCH (09:00)
[2017-10-13] MEDS ORDERED: WARFARIN SODIUM 10 MG PO SCH (09:00)
[2017-10-13] MEDS ORDERED: ENOXAPARIN SODIUM 40 MG/0.4 ML SYRINGE SUBCUT SCH (09:00)
[2017-10-13] MEDS ORDERED: Warfarin 5 MG TAB PO SCH (09:00)
--- NOTE | 2017-10-13 11:28 | DCSUMMARY ---
Hospitalization Summary Admit Date: 10/12/2017 Discharge Date: 10/13/17 Primary Diagnosis:: chest pain, loculated effusions Hospital Course: This a very pleasant 51-year-old female with multiple cardiac issues who came in with chest pain, probably multifactorial and chronic anginal pain. However and workup, we found out that she did not have a heart attack her troponins are negative. Her pain is persistent however. It is for this reason and the fact that she has continued multiple locular pleural effusions bilaterally that I think she needs further care with a client relation specialist and pharmacy customer care specialist. I spoke to Dr. Ovalles in [place], [place], hospitalist, and he agreed to accept the patient and I have a call placed for the patient's client relation specialist to speak with him as well regarding the patient. Dr. Ovalles who take care of calling a pharmacy customer care specialist for the patient arrives. Patient did have a low-grade temperature but I held off on antibiotics as I do not have any clear infiltrates or source of infection at this time. The patient has had anemia before she does have iron deficiency anemia is confirmed by labs today. I'll defer workup of that to the hospitalist service in [place]. After reviewing the CT scan, I just don't know that these effusions are related to strictly heart failure from the patient's severe cardiomyopathy. Again, I think for diagnostic and therapeutic workup and a therapeutic plan, the patient requires multispecialty care. Today, the patient complains of chest pain, shortness breath, no nausea or vomiting. She is willing to go to [place] for further evaluation. Assessment and Plan: 1. As per discharge assessments noted 2. Disposition: Patient is discharged to [facility] 3. Condition on discharge, stable. Patient's condition could deteriorate 4. Diet: regular diet 5. Activities: resume normal activities 6. Follow-Up: 1. See primary provider post hospital stay in [place] 2. 7. Medications at the Time of Discharge: Home Medications 3 Medication Instructions Recorded Confirmed Type Vitamin E Mixed [Vitamin E] 400 unit PO BID tab 04/07/16 10/12/17 History aspirin 81 mg chewable tablet 81 mg PO DAILY tab 12/07/16 10/12/17 History olanzapine-fluoxetine 6 mg-25 mg 1 cap PO QHS #90 cap 02/08/17 10/12/17 Rx capsule topiramate 100 mg tablet 100 mg PO BID #60 tab 03/16/17 10/12/17 Rx Potassium Chloride [K-Tab ER] 20 meq PO QDAY 04/02/17 10/12/17 History fluoxetine 40 mg capsule 40 mg PO DAILY #90 cap 04/12/17 10/12/17 Rx furosemide 40 mg tablet 40 mg PO BID #90 tab 04/13/17 10/12/17 Rx Warfarin Sodium 10 mg PO DAILY 04/24/17 10/12/17 History hydrocodone 5 mg-acetaminophen 325 1 tab PO Q6H PRN #30 tab 07/06/17 10/12/17 Rx mg tablet losartan 25 mg tablet 25 mg PO QDAY #90 tab 07/06/17 10/12/17 Rx metoprolol tartrate 25 mg tablet 12.5 mg PO BID #90 tab 07/06/17 10/12/17 Rx omeprazole 20 mg capsule,delayed 20 mg PO QDAY #90 tab-cap 07/06/17 10/12/17 Rx release promethazine 25 mg tablet 25 mg PO Q6H PRN tab-cap 07/06/17 10/12/17 History isosorbide mononitrate ER 30 mg 30 mg PO QAM #1 tab 07/19/17 10/12/17 Rx tablet,extended release 24 hr simethicone 166 mg capsule 166 mg PO TID 08/10/17 10/12/17 History zaleplon 5 mg capsule 5 mg PO .HS PRN #30 cap 08/10/17 10/12/17 Rx warfarin 5 mg tablet 5 mg PO DAILY #60 tab-cap 09/06/17 10/12/17 Rx atorvastatin 40 mg tablet 40 mg PO QHS #90 tab 10/05/17 10/12/17 Rx I placed on ranexa here, but was not on formulary. In addition, I placed the patient on morphine PRN for pain and nitroglycerin . Active Medications Generic Name Dose Route Start Last Admin Trade Name Freq PRN Reason Stop Dose Admin Acetaminophen 650 mg 10/12/17 19:56 Tylenol PO Q6H PRN Pain or Fever Hydrocodone Bitart/Acetaminophen 1 tab 10/12/17 19:56 [place] 5/325 Tab PO Q6H PRN pain Aspirin 81 mg 10/13/17 09:00 08/02/18 08:17 Aspirin Chewable Tab PO 81 mg DAILY ISABELL Administration Atorvastatin Calcium 40 mg 10/12/17 21:00 10/12/17 21:48 Lipitor PO 40 mg BEDTIME ISABELL Administration Calcium Carbonate 1 - 2 tab 10/12/17 19:56 Tums PO Q6H PRN Heartburn Docusate Sodium 100 mg 10/12/17 19:56 Colace PO BID PRN Constipation Enoxaparin Sodium 40 mg 10/13/17 09:00 10/13/17 08:20 Lovenox Inj SUBCUT 40 mg DAILY ISABELL Administration Fluoxetine HCl 40 mg 10/13/17 09:00 10/13/17 08:18 Prozac PO 40 mg DAILY ISABELL Administration Furosemide 40 mg 10/12/17 21:00 10/13/17 08:19 Lasix PO 40 mg BID ISABELL Administration Isosorbide Mononitrate 30 mg 10/13/17 09:00 10/13/17 08:17 Imdur PO 30 mg DAILY ISABELL Administration Lidocaine HCl 0.5 ml 10/12/17 19:56 Lidocaine Buffered Inj SUBD ONCE PRN IV Starts Losartan Potassium 25 mg 10/13/17 09:00 10/13/17 08:20 Cozaar PO 25 mg DAILY [facility] Administration Metoprolol Tartrate 12.5 mg 10/12/17 21:00 10/13/17 08:18 Lopressor Tab PO 12.5 mg BID ISABELL Administration Morphine Sulfate 2 mg 10/12/17 19:56 10/13/17 10:30 Morphine Inj IVP 2 mg Q2H PRN Administration Pain Nitroglycerin 1 tab 10/12/17 21:17 Nitrostat Sl 0.4mg Tab SL Q5M PRN Chest Pain Pom (Olanzapine/ 1 cap 10/12/17 21:00 10/12/17 21:42 Fluoxetine Hcl 6-25 PO Not Given Mg Cap) BEDTIME ISABELL Non-Formulary Drug ( 5 mg 10/12/17 19:56 Zaleplon 5 Mg) PO BEDTIME PRN insomnia Non-Formulary Medication 500 mg 10/12/17 21:30 10/12/17 21:41 Ranexa PO Not Given BID ISABELL Omeprazole 20 mg 10/12/17 19:56 10/13/17 08:19 Prilosec PO 20 mg DAILY ISABELL Administration Ondansetron HCl 4 mg 10/12/17 19:56 Zofran Inj IVP Q4H PRN NAUSEA / VOMITING Potassium Chloride 20 meq 10/13/17 09:00 10/13/17 08:18 Klor-Con PO 20 meq DAILY ISABELL Administration Promethazine HCl 25 mg 10/12/17 19:56 Phenergan PO Q6H PRN nausea and vomiting Simethicone 160 mg 10/12/17 21:00 10/13/17 08:17 Gas-X PO 160 mg TID ISABELL Administration Topiramate 100 mg 10/12/17 21:00 10/13/17 08:19 Topamax PO 100 mg BID ISABELL Administration Warfarin Sodium 5 mg 10/12/17 21:00 10/12/17 21:48 Coumadin PO 5 mg BEDTIME ISABELL Administration Exam - Vitals Vital Signs: Vital Signs Temperature 97.9 F Temperature Source Temporal Artery Scan Pulse Rate [Pulse Oximeter 72 Right] Pulse Rate 65 Respiratory Rate 30 Blood Pressure [Left Arm] 117/78 Blood Pressure [Right Arm] 119/73 Blood Pressure 106/48 Pulse Ox 94 Oxygen Flow Rate 2.5 Oxygen Delivery Method Nasal Cannula Height 5 ft 5 in Weight 149 lb 6.4 oz - General General Appearance: No Acute Distress, Cooperative Additional General Exam Details: Some mild shortness breath. Gets about 4-5 words out before she needs to take a breath. - Eye Eye Exam: POSITIVE: No Scleral Icterus - ENT ENT Exam: POSITIVE: Mucous Membranes Moist - Respiratory Respiratory Exam: POSITIVE: Breathing Non Labored, Decreased Breath Sounds - Cardiovascular Cardiovascular Exam: POSITIVE: RRR, No Gallops, No Rubs, Systolic Murmur, No JVD Additional Cardiovascular Details: Click present - GI/Abdominal GI/Abdominal Exam: POSITIVE: Normal Bowel Sounds, Non Tender, Non Distended, Soft - Extremities Extremities Exam: POSITIVE: No Edema Present, No Cyanosis Present - Neurological Neurological Exam: POSITIVE: Alert, Oriented x 3, No Facial Droop, Speech Intact / Clear, Moves All Extremities Equally Data Peritnent Studies: Laboratory Results 10/12/17 10/12/17 10/12/17 Range/Units 17:42 17:42 17:42 WBC 7.3 (4.8-10.8) 10^3/uL RBC 4.52 (4.20-5.40) 10^6/uL Hgb 9.6 L (12.0-16.0) g/dL Hct 32.1 L (37.0-47.0) % MCV 71 L (81-99) FL MCH 21.3 L (27-31) PG MCHC 30.0 L (33-37) g/dL RDW Std Deviation (39-50) fL RDW Coeff of [place] 19.2 H (11.5-14.5) % Plt Count 360 H (140-350) 10*3/uL MPV 8.3 (7.4-12.2) FL Immature Gran % (Auto) (0-5) % Neut % (Auto) 76.9 (50-80) % Lymph % (Auto) 13.2 (10-50) % [place] % (Auto) 8.5 (5-15) % Eos % (Auto) 1.2 (0-8) % Baso % (Auto) 0.2 (0-1) % Immature Gran # (Auto) 10*3/UL Neut # (Auto) 5.62 10*3/UL Lymph # (Auto) 0.97 10*3/uL [place] # (Auto) 0.62 (0.3-0.8) 10*3/UL Eos # (Auto) 0.09 10*3/UL Baso # (Auto) 0.01 10*3/UL WBC Morphology Comment Normal morphology (NORM) Plt Morphology Comment Normal morphology (NORM) RBC Morph Comment See comments (NORM) PT 28.2 H (9.7-11.4) secs INR 2.71 (0.00-5.90) N/A D-Dimer 3.63 H (0.00-0.59) mg/L Sodium 142 (135-145) meq/L Potassium 3.8 (3.8-5.2) meq/L Chloride 104 (98-112) meq/L Carbon Dioxide 23 (23-33) meq/L Anion Gap 15 (5-20) BUN 21 (7-22) mg/dL Creatinine 1.0 (0.50-1.20) mg/dL Estimated GFR 59 (>60 ml/min/1.73m(2)) BUN/Creatinine Ratio 21.00 H (6-20) Glucose 130 H (78-110) mg/dL Calculated Osmolality 298.0 H (267-292) mOsm/kg Calcium 8.9 (8.7-10.7) mg/dL Magnesium 1.6 (1.6-2.4) mg/dL Iron (37-170) UG/DL TIBC (265-497) ug/dL % Saturation (14-50) % Total Bilirubin 0.7 (0.3-1.2) mg/dL AST 23 (8-39) IU/L ALT 34 (9-52) IU/L Alkaline Phosphatase 173 H (38-126) IU/L CK-MB (CK-2) (0.00-5.00) NG/ML Troponin I (< 0.040) ng/mL C-Reactive Protein 0.5 (0.0-0.9) mg/dL NT-Pro-B Natriuret Pep 9650 H (0-125) PG/ML Total Protein 7.2 (6.1-8.0) g/dL Albumin 4.0 (3.5-4.8) g/dL Globulin 3.2 (2.50-4.10) g/dL Albumin/Globulin Ratio 1.20 L (1.3-2.0) mg/g Amylase 52 (30-110) U/L Lipase 99 (23-300) IU/L 10/12/17 10/12/17 10/13/17 Range/Units 17:42 22:50 04:49 WBC (4.8-10.8) 10^3/uL RBC (4.20-5.40) 10^6/uL Hgb (12.0-16.0) g/dL Hct (37.0-47.0) % MCV (81-99) FL MCH (27-31) PG MCHC (33-37) g/dL RDW Std Deviation (39-50) fL RDW Coeff of [place] (11.5-14.5) % Plt Count (140-350) 10*3/uL MPV (7.4-12.2) FL Immature Gran % (Auto) (0-5) % Neut % (Auto) (50-80) % Lymph % (Auto) (10-50) % [place] % (Auto) (5-15) % Eos % (Auto) (0-8) % Baso % (Auto) (0-1) % Immature Gran # (Auto) 10*3/UL Neut # (Auto) 10*3/UL Lymph # (Auto) 10*3/uL [place] # (Auto) (0.3-0.8) 10*3/UL Eos # (Auto) 10*3/UL Baso # (Auto) 10*3/UL WBC Morphology Comment (NORM) Plt Morphology Comment (NORM) RBC Morph Comment (NORM) PT (9.7-11.4) secs INR (0.00-5.90) N/A D-Dimer (0.00-0.59) mg/L Sodium (135-145) meq/L Potassium (3.8-5.2) meq/L Chloride (98-112) meq/L Carbon Dioxide (23-33) meq/L Anion Gap (5-20) BUN (7-22) mg/dL Creatinine (0.50-1.20) mg/dL Estimated GFR (>60 ml/min/1.73m(2)) BUN/Creatinine Ratio (6-20) Glucose (78-110) mg/dL Calculated Osmolality (267-292) mOsm/kg Calcium (8.7-10.7) mg/dL Magnesium (1.6-2.4) mg/dL Iron (37-170) UG/DL TIBC (265-497) ug/dL % Saturation (14-50) % Total Bilirubin (0.3-1.2) mg/dL AST (8-39) IU/L ALT (9-52) IU/L Alkaline Phosphatase (38-126) IU/L CK-MB (CK-2) 2.04 (0.00-5.00) NG/ML Troponin I 0.034 0.040 0.039 (< 0.040) ng/mL C-Reactive Protein (0.0-0.9) mg/dL NT-Pro-B Natriuret Pep (0-125) PG/ML Total Protein (6.1-8.0) g/dL Albumin (3.5-4.8) g/dL Globulin (2.50-4.10) g/dL Albumin/Globulin Ratio (1.3-2.0) mg/g Amylase (30-110) U/L Lipase (23-300) IU/L 10/13/17 10/13/17 10/13/17 Range/Units 04:49 04:49 04:49 WBC 6.94 (4.8-10.8) 10^3/uL RBC 4.63 (4.20-5.40) 10^6/uL Hgb 9.7 L (12.0-16.0) g/dL Hct 34.7 L (37.0-47.0) % MCV 74.9 L (81-99) FL MCH 21.0 L (27-31) PG MCHC 28.0 L (33-37) g/dL RDW Std Deviation 56.9 H (39-50) fL RDW Coeff of [place] 21.5 H (11.5-14.5) % Plt Count 357 H (140-350) 10*3/uL MPV 9.8 (7.4-12.2) FL Immature Gran % (Auto) 0.1 (0-5) % Neut % (Auto) 72.1 (50-80) % Lymph % (Auto) 12.4 (10-50) % [place] % (Auto) 14.1 (5-15) % Eos % (Auto) 1.0 (0-8) % Baso % (Auto) 0.3 (0-1) % Immature Gran # (Auto) 0.01 10*3/UL Neut # (Auto) 5.00 10*3/UL Lymph # (Auto) 0.86 10*3/uL [place] # (Auto) 0.98 H (0.3-0.8) 10*3/UL Eos # (Auto) 0.07 10*3/UL Baso # (Auto) 0.02 10*3/UL WBC Morphology Comment Normal morphology (NORM) Plt Morphology Comment Normal morphology (NORM) RBC Morph Comment See comments (NORM) PT 24.4 H (9.7-11.4) secs INR 2.35 (0.00-5.90) N/A D-Dimer (0.00-0.59) mg/L Sodium 142 (135-145) meq/L Potassium 4.3 (3.8-5.2) meq/L Chloride 104 (98-112) meq/L Carbon Dioxide 25 (23-33) meq/L Anion Gap 13 (5-20) BUN 23 H (7-22) mg/dL Creatinine 1.1 (0.50-1.20) mg/dL Estimated GFR 53 (>60 ml/min/1.73m(2)) BUN/Creatinine Ratio 20.90 H (6-20) Glucose 116 H (78-110) mg/dL Calculated Osmolality 298.0 H (267-292) mOsm/kg Calcium 8.8 (8.7-10.7) mg/dL Magnesium (1.6-2.4) mg/dL Iron (37-170) UG/DL TIBC (265-497) ug/dL % Saturation (14-50) % Total Bilirubin (0.3-1.2) mg/dL AST (8-39) IU/L ALT (9-52) IU/L Alkaline Phosphatase (38-126) IU/L CK-MB (CK-2) (0.00-5.00) NG/ML Troponin I (< 0.040) ng/mL C-Reactive Protein (0.0-0.9) mg/dL NT-Pro-B Natriuret Pep (0-125) PG/ML Total Protein (6.1-8.0) g/dL Albumin (3.5-4.8) g/dL Globulin (2.50-4.10) g/dL Albumin/Globulin Ratio (1.3-2.0) mg/g Amylase (30-110) U/L Lipase (23-300) IU/L 10/13/17 Range/Units 04:49 WBC (4.8-10.8) 10^3/uL RBC (4.20-5.40) 10^6/uL Hgb (12.0-16.0) g/dL Hct (37.0-47.0) % MCV (81-99) FL MCH (27-31) PG MCHC (33-37) g/dL RDW Std Deviation (39-50) fL RDW Coeff of [place] (11.5-14.5) % Plt Count (140-350) 10*3/uL MPV (7.4-12.2) FL Immature Gran % (Auto) (0-5) % Neut % (Auto) (50-80) % Lymph % (Auto) (10-50) % [place] % (Auto) (5-15) % Eos % (Auto) (0-8) % Baso % (Auto) (0-1) % Immature Gran # (Auto) 10*3/UL Neut # (Auto) 10*3/UL Lymph # (Auto) 10*3/uL [place] # (Auto) (0.3-0.8) 10*3/UL Eos # (Auto) 10*3/UL Baso # (Auto) 10*3/UL WBC Morphology Comment (NORM) Plt Morphology Comment (NORM) RBC Morph Comment (NORM) PT (9.7-11.4) secs INR (0.00-5.90) N/A D-Dimer (0.00-0.59) mg/L Sodium (135-145) meq/L Potassium (3.8-5.2) meq/L Chloride (98-112) meq/L Carbon Dioxide (23-33) meq/L Anion Gap (5-20) BUN (7-22) mg/dL Creatinine (0.50-1.20) mg/dL Estimated GFR (>60 ml/min/1.73m(2)) BUN/Creatinine Ratio (6-20) Glucose (78-110) mg/dL Calculated Osmolality (267-292) mOsm/kg Calcium (8.7-10.7) mg/dL Magnesium (1.6-2.4) mg/dL Iron 36 L (37-170) UG/DL TIBC 411 (265-497) ug/dL % Saturation 8.8 L (14-50) % Total Bilirubin (0.3-1.2) mg/dL AST (8-39) IU/L ALT (9-52) IU/L Alkaline Phosphatase (38-126) IU/L CK-MB (CK-2) (0.00-5.00) NG/ML Troponin I (< 0.040) ng/mL C-Reactive Protein (0.0-0.9) mg/dL NT-Pro-B Natriuret Pep (0-125) PG/ML Total Protein (6.1-8.0) g/dL Albumin (3.5-4.8) g/dL Globulin (2.50-4.10) g/dL Albumin/Globulin Ratio (1.3-2.0) mg/g Amylase (30-110) U/L Lipase (23-300) IU/L Procedures: [address] [facility] [place] [address] PH: DD: [phone] FAX: [phone] ~DIAGNOSTIC IMAGING REPORT~ Patient: Kathleen Gaffney : 1965 Sex: F Age: 51 Exam Name: CT Chest WO Contrast Exam Date: 10/12/17 Report # : [id number] CPT Code: 42241 EMR/MR #: [id number] Ordering: BEA SHERIDAN Admiting: BEA SHERIDAN DO Primary: Melinda Alegria MD Attending: BEA SHERIDAN DO Signed PROCEDURE: CT CHEST Without Contrast HISTORY: 51-year-old female with chest pain COMPARISON: CTA chest 09/07/[address] abdomen and pelvis 07/21/2016 TECHNIQUE: CT imaging was obtained through the chest. Coronal and sagittal reformations were performed. FINDINGS: Evaluation is limited by motion degradation and lack of contrast. Soft tissues: Visualized portions of the thyroid gland are unremarkable. There are multiple small and abnormally enlarged mediastinal lymph nodes. For example, there is an abnormally enlarged 1.7 centimeter short axis pretracheal lymph node series 2 image 29. There multiple abnormally enlarged peridiaphragmatic lymph nodes measuring approximately 8 millimeters in short axis, for example series 2 images 72-75, overall similar to prior. No significant axillary lymphadenopathy. Evaluation for hilar lymphadenopathy is limited without contrast. The esophagus is unremarkable. There are postoperative changes of mitral valve repair. A dual-lead pacemaker is identified within the left anterior subcutaneous tissues. One lead is identified at the right atrium and the other is identified at the right ventricle. Multichamber cardiomegaly is redemonstrated. There are calcifications of the coronary arteries, thoracic aorta, and arch vessels. Dilated central pulmonary arteries are again identified and can be seen in pulmonary arterial hypertension. Limited evaluation of the upper abdomen demonstrates postoperative changes of cholecystectomy. There is a small ascites. Atherosclerotic calcifications are again identified. Lungs: There is evidence of pulmonary edema with bilateral interlobular septal thickening. There is a 6 millimeter right lower lobe solid- appearing noncalcified pulmonary nodule, series 2 image 70. Followup per Fleischner Society guidelines. There are bilateral loculated pleural effusions, similar on the left and mildly increased on the right as compared to prior. The airway is patent. Bones: There are postoperative changes of median sternotomy. IMPRESSION: 1. There is evidence of pulmonary edema with bilateral interlobular septal thickening. 2. There is a 6 millimeter right lower lobe solid-appearing noncalcified pulmonary nodule. Followup per Fleischner Society guidelines. 3. Multichamber cardiomegaly is redemonstrated. 4. Dilated central pulmonary arteries are again identified and can be seen in pulmonary arterial hypertension. 5. There are bilateral loculated pleural effusions, similar on the left and mildly increased on the right as compared to prior. 6. Mediastinal and peridiaphragmatic lymphadenopathy, similar to prior. Findings may be due to malignancy or infection/inflammation. 7. Small upper abdominal ascites. 8. Other findings as detailed above. Dictated By: Kendra Lange MD Signed By: 10/12/17 2333 Kendra Lange MD Patient Problems - Patient Problem List (1) Pleural effusion Current Visit: Yes Status: Acute Comment: Complex, loculated, and bilateral. I felt like they were worse on the left than the right on view of the CT scan, but the heart is big and displaces the lung to some degree on the left side. Overall, I don't know if these are just isolated to congestive heart failure or if they have a diagnostic and therapeutic approach from a pulmonary side and this is best dealt with with specialist available to explore these all possibilities Code(s): J90 - Pleural effusion, not elsewhere classified Category: Medical (2) Chest pain Current Visit: No Status: Acute Code(s): R07.9 - Chest pain, unspecified Category: Medical (3) Chronic stable angina Current Visit: Yes Status: Acute Code(s): I20.8 - Other forms of angina pectoris Category: Medical (4) Tobacco dependence Current Visit: Yes Status: Chronic Onset Date: 01/20/16 Code(s): F17.200 - Nicotine dependence, unspecified, uncomplicated Category: Medical (5) Presence of combination internal cardiac defibrillator (ICD) and pacemaker Current Visit: Yes Status: Chronic Onset Date: 10/14/15 Code(s): Z95.810 - Presence of automatic (implantable) cardiac defibrillator Category: Medical (6) Mixed hyperlipidemia Current Visit: Yes Status: Chronic Onset Date: 01/20/16 Code(s): E78.2 - Mixed hyperlipidemia Category: Medical (7) Migraine, unspecified, not intractable, without status migrainosus Current Visit: Yes Status: Chronic Onset Date: 10/14/15 Code(s): G43.909 - Migraine, unspecified, not intractable, without status migrainosus Qualifiers: Migraine type: unspecified Qualified Code(s): G43.909 - Migraine, unspecified, not intractable, without status migrainosus Category: Medical (8) snf current use of anticoagulant Current Visit: Yes Status: Chronic Onset Date: 02/02/16 Code(s): 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 transplanted heart: [place] heart Associated angina: angina presence unspecified Qualified Code(s): I25.10 - Atherosclerotic heart disease of [place] coronary artery without angina pectoris Category: Medical (11) Anxiety Current Visit: Yes Status: Acute Code(s): F41.9 - Anxiety disorder, unspecified Category: Medical (12) H/O mitral valve replacement with mechanical valve Current Visit: Yes Status: Acute Code(s): Z95.2 - Presence of prosthetic heart valve Category: Medical
[2017-10-13] MEDS: RANEXA 500 MG PO SCH (11:45)
== END 2017-10-13 12:11 | disposition short-term general hospital (02) ==
LOC: MED/SURG 17:19 → ER 17:19 → MED/SURG 19:50
PROVIDERS: ADMIT Family Medicine; ATTEND Family Medicine